=== PATIENT | female | born 1955 | race Caucasian/White ===

== ENCOUNTER 2017-09-06 09:41 | Emergency (ER) | payer MEDICAID, OTHER ==
[~2017-09-06] VITALS: Ht 165.1 cm; Wt 59.0 kg
[~2017-09-06 09:41] MED LIST: FAM20T PO; MET25T PO; PAR20T PO
[2017-09-06] MEDS ORDERED: SODIUM CHLORIDE 0.9% 1,000 ML IV ONE ×2 (10:11)
[2017-09-06] MEDS ORDERED: LORazepam 2MG/ML-1ML VIAL IV ONE (10:15)
[2017-09-06 10:49] VITALS: BP 154/102
[2017-09-06 12:03] LABS: Basophils # (auto) 0 uL; Basophils % (auto) 0.2 % (0.0-2.0); Eosinophils # (auto) 0 uL; Eosinophils % (auto) 0.1 % (0.0-7.0); Hematocrit 44.7 % (36.0-46.0); Hemoglobin 15.4 g/dL (12.2-16.2); Lymphocytes # (auto) 0.8 uL; Lymphocytes % (auto) 7.6 % (10.0-50.0); Mean Corpuscular Hemoglobin 32.9 pg (28.0-32.0); Mean Corpuscular Hgb Conc. 34.4 g/dL (32.0-36.0); Mean Corpuscular Volume 95.6 fL (80.0-100.0); Monocytes # (auto) 0.5 uL; Monocytes % (auto) 4.8 % (0.0-12.0); Neutrophils # (auto) 9.2 uL; Neutrophils % (auto) 87.3 % (37.0-80.0); Platelet Count (auto) 176 10^3/uL (140-450); Red Blood Cells 4.67 10^6/uL (4.0-5.20); Red Cell Distribution Width 14.3 % (11.8-14.3); White Blood Cell 10.5 10^3/uL (4.4-10.8)
[2017-09-06 12:35] LABS: Albumin 2.8 g/dL (3.4-5.0); BUN/Creatinine Ratio 3.4; Bilirubin, Total 0.5 mg/dL (0.2-1.0); Calcium 7.4 mg/dL (8.5-10.1); Potassium 3.6 mmol/L (3.5-5.1)
== END 2017-09-06 14:45 | disposition home or self-care (01) ==
LOC: ER 09:41 → EDBD 09:41 → ER 14:45
DX: F41.9 Anxiety disorder, unspecified (principal); J44.9 Chronic obstructive pulmonary disease, unspecified; F32.9 Major depressive disorder, single episode, unspecified; G89.4 Chronic pain syndrome; F17.210 Nicotine dependence, cigarettes, uncomplicated
CPT/HCPCS: 36415; 71046; 80053; 83735; 84484; 85025; 96361; 96374; 99285; J2060; J7030; 93005

== ENCOUNTER 2017-09-12 23:21 | Emergency (ER) | payer MEDICAID, OTHER ==
[~2017-09-12] VITALS: Ht 167.6 cm; Wt 81.6 kg
[2017-09-12 23:50] VITALS: BP 148/98
[2017-09-13 00:03] LABS: Urine Bacteria None Seen /hpf (None Seen); Urine WBC None Seen /hpf (0 - 5)
[2017-09-13 00:23] LABS: Eosinophils # (auto) 0 uL; Monocytes # (auto) 0.3 uL; Neutrophils # (auto) 4.5 uL; Nucleated Red Blood Cells % 0.1 %; White Blood Cell 6.9 10^3/uL (4.4-10.8)
[2017-09-13 00:25] LABS: Basophils # (auto) 0.1 uL; Basophils % (auto) 1.4 % (0.0-2.0); Eosinophils % (auto) 0.5 % (0.0-7.0); Hematocrit 54.5 % (36.0-46.0); Hemoglobin 18.4 g/dL (12.2-16.2); Lymphocytes # (auto) 1.9 uL; Lymphocytes % (auto) 27.6 % (10.0-50.0); Mean Corpuscular Hemoglobin 32.3 pg (28.0-32.0); Mean Corpuscular Hgb Conc. 33.8 g/dL (32.0-36.0); Mean Corpuscular Volume 95.6 fL (80.0-100.0); Monocytes % (auto) 4.3 % (0.0-12.0); Neutrophils % (auto) 66.2 % (37.0-80.0); Platelet Count (auto) 247 10^3/uL (140-450); Red Cell Distribution Width 14.5 % (11.8-14.3)
[2017-09-13 00:36] LABS: Acetaminophen < 2.0 ug/mL (10-30); Salicylate 3.7 mg/dL (2.8-20.0)
[2017-09-13 00:38] LABS: Albumin 3.6 g/dL (3.4-5.0); Bilirubin, Total 0.6 mg/dL (0.2-1.0); Calcium 8.4 mg/dL (8.5-10.1); Magnesium 2.2 mg/dL (1.6-2.6); Potassium 4.3 mmol/L (3.5-5.1); Total Protein 7.6 g/dL (6.4-8.2)
[2017-09-13 00:42] LABS: Amphetamine Screen, Urine NEGATIVE (NEGATIVE); Barbiturate Scree,Urine NEGATIVE (NEGATIVE); Benzodiazephine Screen, Urine NEGATIVE (NEGATIVE); Cannabinoid Screen, Urine NEGATIVE (NEGATIVE); Cocaine Screen, Urine NEGATIVE (NEGATIVE); Opiate Scree,Urine NEGATIVE (NEGATIVE); Phencyclidine Screen, Urine NEGATIVE (NEGATIVE)
[2017-09-13 00:49] LABS: Urine Blood Normal /uL (Negative); Urine Specific Gravity 1.002 (1.001-1.035)
== END 2017-09-12 23:58 | disposition left against medical advice (07) ==
LOC: EDBD 23:21 → ER 23:33
DX: F10.120 Alcohol abuse with intoxication, uncomplicated (principal); Z53.21 Procedure and treatment not carried out due to patient leaving prior to being seen by health care provider
CPT/HCPCS: 36415; 80053; 80307; 80320; 80329; 81001; 83735; 85025; 93005

== ENCOUNTER 2017-09-15 12:39 | Emergency (ER) | payer MEDICAID, OTHER ==
[~2017-09-15] VITALS: Ht 167.6 cm; Wt 72.6 kg
[2017-09-15] MEDS ORDERED: SODIUM CHLORIDE 0.9% 1,000 ML IV ONE ×2 (12:43)
[2017-09-15] MEDS ORDERED: THIAMINE HCL 100 MG/ML 2ML VIAL IV ONE (12:45)
[2017-09-15] MEDS ORDERED: chlordiazePOXIDE HCL 25 MG CAP PO ONE (12:45)
[2017-09-15 13:23] LABS: Basophils # (auto) 0.1 uL; Eosinophils # (auto) 0 uL; Mean Corpuscular Volume 96.1 fL (80.0-100.0); Monocytes # (auto) 0.2 uL; Nucleated Red Blood Cells % 0.2 %
[2017-09-15 13:25] LABS: Basophils % (auto) 0.7 % (0.0-2.0); Hematocrit 52.3 % (36.0-46.0); Hemoglobin 17.4 g/dL (12.2-16.2); Lymphocytes % (auto) 24.5 % (10.0-50.0); Mean Corpuscular Hgb Conc. 33.3 g/dL (32.0-36.0); Monocytes % (auto) 2.9 % (0.0-12.0); Neutrophils # (auto) 5.9 uL; Neutrophils % (auto) 71.9 % (37.0-80.0); Platelet Count (auto) 259 10^3/uL (140-450); Red Blood Cells 5.44 10^6/uL (4.0-5.20); Red Cell Distribution Width 14.6 % (11.8-14.3); White Blood Cell 8.2 10^3/uL (4.4-10.8)
[2017-09-15 14:38] LABS: BUN/Creatinine Ratio 10.9; Potassium 4.5 mmol/L (3.5-5.1)
[2017-09-15 14:39] LABS: Albumin 3.5 g/dL (3.4-5.0); Bilirubin, Total 0.7 mg/dL (0.2-1.0); Calcium 7.8 mg/dL (8.5-10.1); Total Protein 6.9 g/dL (6.4-8.2)
[2017-09-15] MEDS ORDERED: LORazepam 2MG/ML-1ML VIAL ONE (14:40)
[2017-09-15] MEDS ORDERED: LORazepam 2MG/ML-1ML VIAL IV ONE ×2 (14:45→18:00)
[2017-09-15 16:24] LABS: Urine Bacteria FEW /hpf (None Seen); Urine Blood Negative /uL (Negative); Urine Budding Yeast FEW /hpf (None Seen); Urine Mucus FEW (None Seen); Urine Specific Gravity 1.006 (1.001-1.035); Urine WBC 96 /hpf (0 - 5)
[2017-09-15 19:15] VITALS: BP 137/72
== END 2017-09-15 19:59 | disposition home or self-care (01) ==
LOC: ER 12:39 → EDBD 12:39 → ER 19:59
DX: F10.129 Alcohol abuse with intoxication, unspecified (principal); F41.9 Anxiety disorder, unspecified; J44.9 Chronic obstructive pulmonary disease, unspecified; F17.210 Nicotine dependence, cigarettes, uncomplicated
CPT/HCPCS: 36415; 80053; 80320; 81001; 85025; 93005; 96361; 96374; 96375; 96376; 99285; J2060; J3411; J7030

== ENCOUNTER 2018-06-07 10:53 | Emergency (ER) | payer BC, MEDICAID ==
[~2018-06-07] VITALS: Ht 165.1 cm; Wt 67.1 kg
[2018-06-07 11:03] VITALS: BP 121/71
[2018-06-07 11:53] LABS: Basophils # (auto) 0 uL; Basophils % (auto) 0.4 % (0.0-2.0); Eosinophils # (auto) 0 uL; Eosinophils % (auto) 0.5 % (0.0-7.0); Hematocrit 49.5 % (36.0-46.0); Hemoglobin 17.1 g/dL (12.2-16.2); Lymphocytes # (auto) 3.5 uL; Lymphocytes % (auto) 38.7 % (10.0-50.0); Mean Corpuscular Hemoglobin 32.2 pg (28.0-32.0); Mean Corpuscular Hgb Conc. 34.5 g/dL (32.0-36.0); Mean Corpuscular Volume 93.4 fL (80.0-100.0); Monocytes # (auto) 0.3 uL; Monocytes % (auto) 2.8 % (0.0-12.0); Neutrophils # (auto) 5.2 uL; Neutrophils % (auto) 57.6 % (37.0-80.0); Nucleated Red Blood Cells % 0.2 %; Platelet Count (auto) 256 10^3/uL (140-450); Red Cell Distribution Width 12.1 % (11.8-14.3)
[2018-06-07 12:05] LABS: Alanine Aminotransferase 25 U/L (13-56); Albumin 3.8 g/dL (3.4-5.0); Alkaline Phosphatase 78 U/L (45-117); Anion Gap 9 (5-15); Aspartate Aminotransferase 18 U/L (15-37); BUN/Creatinine Ratio 12.5; Bilirubin, Total 0.3 mg/dL (0.2-1.0); Blood Urea Nitrogen 9 mg/dL (7-18); Calcium 8.4 mg/dL (8.5-10.1); Carbon Dioxide 26 mmol/L (21-32); Chloride 107 mmol/L (98-107); GFR African American 105 mL/min; GFR Non-African American 87 mL/min; Glucose 90 mg/dL (74-106); Potassium 4.7 mmol/L (3.5-5.1); Sodium 142 mmol/L (136-145); Total Protein 7.1 g/dL (6.4-8.2)
[2018-06-07] MEDS ORDERED: MVI in SODIUM CHLORIDE 0.9% 1,010 ML IV ONE (12:36)
[2018-06-07] MEDS ORDERED: SODIUM CHLORIDE 0.9% 1,000 ML IVB ONE (12:36)
[2018-06-07] MEDS ORDERED: LORazepam 2MG/ML-1ML VIAL IV ONE ×3 (12:45→17:15)
[2018-06-07] MEDS ORDERED: THIAMINE 100mg/ml INJ (200mg/2ml VIAL) IV ONE ×2 (12:45)
[2018-06-07] MEDS: MAGNESIUM SULFATE 1GM/100ML 100 ML IV SCH ×2 (13:24→13:45)
[2018-06-07 15:12] LABS: Acetaminophen < 2.0 ug/mL (10-30)
[2018-06-07 15:25] LABS: Urine Bacteria NONE SEEN /hpf (None Seen); Urine Blood Negative /uL (Negative); Urine Hyaline Cast FEW /lpf (0 - 2); Urine Mucus FEW (None Seen); Urine Specific Gravity 1.007 (1.001-1.035); Urine WBC 5 /hpf (0 - 5)
[2018-06-07 17:47] LABS: Amphetamine Screen, Urine NEGATIVE (NEGATIVE); Barbiturate Scree,Urine NEGATIVE (NEGATIVE); Benzodiazephine Screen, Urine POSITIVE (NEGATIVE); Cannabinoid Screen, Urine NEGATIVE (NEGATIVE); Cocaine Screen, Urine NEGATIVE (NEGATIVE); Opiate Scree,Urine NEGATIVE (NEGATIVE); Phencyclidine Screen, Urine NEGATIVE (NEGATIVE)
== END 2018-06-07 17:38 | disposition home or self-care (01) ==
LOC: ER 10:53
DX: F10.239 Alcohol dependence with withdrawal, unspecified (principal); F41.1 Generalized anxiety disorder; F17.210 Nicotine dependence, cigarettes, uncomplicated; J44.9 Chronic obstructive pulmonary disease, unspecified
CPT/HCPCS: 36415; 71046; 80053; 80307; 80320; 80329; 81001; 83735; 84484; 85025; 93005; 94761; 96365; 96375; 96376; 99285; J2060; J3411; J3475; J7030

== ENCOUNTER 2018-06-17 18:14 | Emergency (ER) | payer BC, MEDICAID ==
[~2018-06-17] VITALS: Ht 167.6 cm; Wt 72.6 kg
[2018-06-17 18:29] VITALS: BP 149/84
[2018-06-17 18:49] LABS: Urine Bacteria NONE SEEN /hpf (None Seen); Urine Blood Negative /uL (Negative); Urine WBC 4 /hpf (0 - 5)
[2018-06-17 19:00] LABS: Basophils # (auto) 0 uL; Basophils % (auto) 0.4 % (0.0-2.0); Eosinophils # (auto) 0 uL; Eosinophils % (auto) 0.5 % (0.0-7.0); Hematocrit 37.5 % (36.0-46.0); Hemoglobin 13.2 g/dL (12.2-16.2); Lymphocytes # (auto) 1.4 uL; Lymphocytes % (auto) 15.3 % (10.0-50.0); Mean Corpuscular Hemoglobin 32.6 pg (28.0-32.0); Mean Corpuscular Hgb Conc. 35.2 g/dL (32.0-36.0); Mean Corpuscular Volume 92.6 fL (80.0-100.0); Monocytes # (auto) 0.9 uL; Monocytes % (auto) 10.3 % (0.0-12.0); Neutrophils # (auto) 6.8 uL; Neutrophils % (auto) 73.5 % (37.0-80.0); Platelet Count (auto) 125 10^3/uL (140-450); Red Blood Cells 4.05 10^6/uL (4.0-5.20); Red Cell Distribution Width 12.2 % (11.8-14.3); White Blood Cell 9.2 10^3/uL (4.4-10.8)
[2018-06-17 19:09] LABS: Alcohol, Urine < 3.0 mg/dL (0-5); Amphetamine Screen, Urine NEGATIVE (NEGATIVE); Barbiturate Scree,Urine NEGATIVE (NEGATIVE); Benzodiazephine Screen, Urine POSITIVE (NEGATIVE); Cannabinoid Screen, Urine NEGATIVE (NEGATIVE); Cocaine Screen, Urine NEGATIVE (NEGATIVE); Opiate Scree,Urine NEGATIVE (NEGATIVE); Phencyclidine Screen, Urine NEGATIVE (NEGATIVE)
[2018-06-17 19:19] LABS: Albumin 3.3 g/dL (3.4-5.0); Anion Gap 7 (5-15); Blood Alcohol < 3.0 mg/dL (0-5); Blood Urea Nitrogen 11 mg/dL (7-18); Calcium 8.8 mg/dL (8.5-10.1); Carbon Dioxide 28 mmol/L (21-32); Chloride 93 mmol/L (98-107); Glucose 94 mg/dL (74-106); Magnesium 1.7 mg/dL (1.6-2.6); Potassium 3.4 mmol/L (3.5-5.1); Sodium 128 mmol/L (136-145)
[2018-06-17 19:26] LABS: Alanine Aminotransferase 25 U/L (13-56); Alkaline Phosphatase 51 U/L (45-117); Aspartate Aminotransferase 19 U/L (15-37); Bilirubin, Total 0.6 mg/dL (0.2-1.0); GFR African American 79 mL/min; GFR Non-African American 65 mL/min; Total Protein 6.5 g/dL (6.4-8.2)
== END 2018-06-17 18:57 | disposition left against medical advice (07) ==
LOC: EDUNIT# 18:14 → EDBD 18:14 → ER 18:18
DX: F41.9 Anxiety disorder, unspecified (principal); R25.1 Tremor, unspecified; Z53.21 Procedure and treatment not carried out due to patient leaving prior to being seen by health care provider
CPT/HCPCS: 36415; 80053; 80307; 80320; 81001; 83735; 84484; 85025

== ENCOUNTER 2018-06-28 14:57 | Observation (INO) | payer BC, MEDICAID ==
[~2018-06-28] VITALS: Ht 167.6 cm; Wt 65.8 kg
[~2018-06-28 14:57] MED LIST changes: +CHLO25CA2 PO; +DIAZ2TAB PO; -FAM20T PO; -MET25T PO; +PANT40T PO; -PAR20T PO
[2018-06-28 15:12] VITALS: BP 127/78
[2018-06-28 15:54] LABS: Basophils # (auto) 0 uL; Basophils % (auto) 0.2 % (0.0-2.0); Eosinophils # (auto) 0 uL; Eosinophils % (auto) 0.3 % (0.0-7.0); Hematocrit 42.6 % (36.0-46.0); Hemoglobin 14.6 g/dL (12.2-16.2); Lymphocytes # (auto) 1.1 uL; Lymphocytes % (auto) 13.6 % (10.0-50.0); Mean Corpuscular Hemoglobin 32.3 pg (28.0-32.0); Mean Corpuscular Hgb Conc. 34.4 g/dL (32.0-36.0); Mean Corpuscular Volume 94.1 fL (80.0-100.0); Monocytes # (auto) 0.5 uL; Monocytes % (auto) 5.9 % (0.0-12.0); Neutrophils # (auto) 6.4 uL; Nucleated Red Blood Cells % 0.1 %; Platelet Count (auto) 251 10^3/uL (140-450); Red Blood Cells 4.53 10^6/uL (4.0-5.20); Red Cell Distribution Width 12.7 % (11.8-14.3)
[2018-06-28 16:21] LABS: Carbon Dioxide 25 mmol/L (21-32); Glucose 130 mg/dL (74-106)
[2018-06-28 16:25] LABS: Albumin 3.5 g/dL (3.4-5.0); Anion Gap 10 (5-15); Aspartate Aminotransferase 18 U/L (15-37); Bilirubin, Total 0.5 mg/dL (0.2-1.0); Blood Alcohol < 3.0 mg/dL (0-5); Blood Urea Nitrogen 5 mg/dL (7-18); Calcium 9.2 mg/dL (8.5-10.1); Chloride 102 mmol/L (98-107); GFR African American 89 mL/min; GFR Non-African American 74 mL/min; Potassium 3.2 mmol/L (3.5-5.1); Sodium 137 mmol/L (136-145); Total Protein 6.9 g/dL (6.4-8.2)
[2018-06-28] MEDS ORDERED: SODIUM CHLORIDE 0.9% 1,000 ML IVB ONE (16:27)
[2018-06-28 16:37] LABS: Alanine Aminotransferase 20 U/L (13-56); Alkaline Phosphatase 78 U/L (45-117)
[2018-06-28 16:52] LABS: Magnesium 1.5 mg/dL (1.6-2.6)
[2018-06-28 18:09] LABS: INR 0.98 (0.9-1.15); Partial Thromboplastin Time 28.3 sec (23.78-33.04); Prothrombin Time 10.5 sec (9.27-12.13)
== END 2018-06-28 20:51 | disposition home or self-care (01) | DRG 392 ==
LOC: EDBD 14:57 → ER 14:57 → OVERFLOW 14:58 → ER 20:48
PROVIDERS: ADMIT Family Medicine; ATTEND Family Medicine
DX: R10.84 Generalized abdominal pain (principal); I10 Essential (primary) hypertension; F17.210 Nicotine dependence, cigarettes, uncomplicated; F10.20 Alcohol dependence, uncomplicated; E87.6 Hypokalemia; E83.42 Hypomagnesemia; F41.9 Anxiety disorder, unspecified; F32.9 Major depressive disorder, single episode, unspecified; Z88.8 Allergy status to other drugs, medicaments and biological substances
CPT/HCPCS: 36415; 71045; 80053; 80320; 82150; 83690; 83735; 85025; 85610; 85730; 93005; 99285; G0378

== ENCOUNTER 2018-07-10 18:37 | Emergency (ER) | payer BC, OTHER ==
[~2018-07-10] VITALS: Ht 170.2 cm; Wt 59.0 kg
[2018-07-10] MEDS ORDERED: SODIUM CHLORIDE 0.9% 3,000 ML IV ONE (19:45)
[2018-07-10 20:13] LABS: Basophils # (auto) 0 uL; Basophils % (auto) 0.6 % (0.0-2.0); Eosinophils # (auto) 0.1 uL; Eosinophils % (auto) 0.8 % (0.0-7.0); Hematocrit 40.4 % (36.0-46.0); Hemoglobin 13.8 g/dL (12.2-16.2); Lymphocytes # (auto) 1.7 uL; Lymphocytes % (auto) 25.2 % (10.0-50.0); Mean Corpuscular Hemoglobin 32.1 pg (28.0-32.0); Mean Corpuscular Volume 94.4 fL (80.0-100.0); Monocytes # (auto) 0.4 uL; Monocytes % (auto) 6.1 % (0.0-12.0); Neutrophils # (auto) 4.6 uL; Neutrophils % (auto) 67.3 % (37.0-80.0); Nucleated Red Blood Cells % 0.1 %; Platelet Count (auto) 207 10^3/uL (140-450); Red Blood Cells 4.28 10^6/uL (4.0-5.20); Red Cell Distribution Width 13.2 % (11.8-14.3); White Blood Cell 6.9 10^3/uL (4.4-10.8)
[2018-07-10] MEDS ORDERED: chlordiazePOXIDE HCL 25 MG CAP PO ONE (20:15)
[2018-07-10 20:29] LABS: Albumin 3.4 g/dL (3.4-5.0); Anion Gap 9 (5-15); Blood Alcohol < 3.0 mg/dL (0-5); Blood Urea Nitrogen 4 mg/dL (7-18); Calcium 8.9 mg/dL (8.5-10.1); Carbon Dioxide 27 mmol/L (21-32); Chloride 106 mmol/L (98-107); Glucose 115 mg/dL (74-106); Potassium 3.9 mmol/L (3.5-5.1); Sodium 142 mmol/L (136-145)
[2018-07-10 20:31] LABS: BUN/Creatinine Ratio 4.7; GFR African American 87 mL/min; GFR Non-African American 72 mL/min
[2018-07-10 20:44] LABS: Alanine Aminotransferase 66 U/L (13-56); Alkaline Phosphatase 65 U/L (45-117); Aspartate Aminotransferase 36 U/L (15-37); Bilirubin, Total 0.3 mg/dL (0.2-1.0); Total Protein 6.5 g/dL (6.4-8.2)
[2018-07-10 21:19] VITALS: BP 137/78
[2018-07-10 21:46] LABS: Alcohol, Urine < 3.0 mg/dL (0-5); Amphetamine Screen, Urine NEGATIVE (NEGATIVE); Barbiturate Scree,Urine NEGATIVE (NEGATIVE); Benzodiazephine Screen, Urine POSITIVE (NEGATIVE); Cannabinoid Screen, Urine NEGATIVE (NEGATIVE); Cocaine Screen, Urine NEGATIVE (NEGATIVE); Opiate Scree,Urine NEGATIVE (NEGATIVE); Phencyclidine Screen, Urine NEGATIVE (NEGATIVE)
== END 2018-07-10 22:03 | disposition home or self-care (01) ==
LOC: ER 18:37
DX: F10.239 Alcohol dependence with withdrawal, unspecified (principal); F41.9 Anxiety disorder, unspecified; I10 Essential (primary) hypertension; F17.210 Nicotine dependence, cigarettes, uncomplicated
CPT/HCPCS: 36415; 80053; 80307; 80320; 85025; 93005; 99285; J7030

== ENCOUNTER 2019-05-10 18:40 | Emergency (ER) | payer BC, OTHER ==
[~2019-05-10] VITALS: Ht 162.6 cm; Wt 72.6 kg
[~2019-05-10 18:40] MED LIST changes: -CHLO25CA2 PO; -DIAZ2TAB PO
[2019-05-10 18:56] VITALS: BP 131/82
[2019-05-10] MEDS ORDERED: SODIUM CHLORIDE 0.9% 1,000 ML IV ONE (22:30)
[2019-05-10] MEDS ORDERED: LORazepam 2MG/ML-1ML VIAL IV ONE (22:30)
[2019-05-10 23:23] LABS: Basophils # (auto) 0 uL; Basophils % (auto) 0.4 % (0.0-2.0); Eosinophils # (auto) 0 uL; Hematocrit 45.1 % (36.0-46.0); Hemoglobin 15.4 g/dL (12.2-16.2); Lymphocytes # (auto) 2.7 uL; Lymphocytes % (auto) 27.8 % (10.0-50.0); Mean Corpuscular Hemoglobin 31.5 pg (28.0-32.0); Mean Corpuscular Hgb Conc. 34.1 g/dL (32.0-36.0); Mean Corpuscular Volume 92.2 fL (80.0-100.0); Monocytes # (auto) 0.5 uL; Monocytes % (auto) 5.3 % (0.0-12.0); Neutrophils # (auto) 6.4 uL; Neutrophils % (auto) 66.5 % (37.0-80.0); Nucleated Red Blood Cells % 0.1 %; Platelet Count (auto) 249 10^3/uL (140-450); Red Cell Distribution Width 13.4 % (11.8-14.3); White Blood Cell 9.6 10^3/uL (4.4-10.8)
[2019-05-10 23:38] LABS: INR 1.01 (0.9-1.15); Partial Thromboplastin Time 25.9 sec (23.64-32.05)
[2019-05-10 23:44] LABS: Calcium 8.7 mg/dL (8.5-10.1)
[2019-05-10 23:47] LABS: Albumin 4.1 g/dL (3.4-5.0)
[2019-05-11 00:04] LABS: Bilirubin, Total 0.5 mg/dL (0.2-1.0); Total Protein 7.3 g/dL (6.4-8.2)
== END 2019-05-11 00:55 | disposition home or self-care (01) ==
LOC: EDBD 18:40 → ER 18:40 → EDSEX 18:40 → ER 05-11 00:55
DX: F10.229 Alcohol dependence with intoxication, unspecified (principal); F17.210 Nicotine dependence, cigarettes, uncomplicated; J44.9 Chronic obstructive pulmonary disease, unspecified; I10 Essential (primary) hypertension; Z88.8 Allergy status to other drugs, medicaments and biological substances; Z79.899 Other long term (current) drug therapy
CPT/HCPCS: 36415; 71045; 80053; 80320; 85025; 85610; 85730; 93005; 96374; 99284; J2060; J7030

== ENCOUNTER 2019-05-11 09:16 | Emergency (ER) | payer OTHER ==
[~2019-05-11] VITALS: Ht 167.6 cm; Wt 72.6 kg
[2019-05-11] MEDS ORDERED: SODIUM CHLORIDE 0.9% 1,000 ML IV ONE (09:28)
[2019-05-11] MEDS ORDERED: LORazepam 2MG/ML-1ML VIAL IV ONE (09:30)
[2019-05-11 13:01] VITALS: BP 151/67
== END 2019-05-11 13:42 | disposition home or self-care (01) ==
LOC: EDBD 09:16 → ER 09:16
DX: F10.239 Alcohol dependence with withdrawal, unspecified (principal); F41.9 Anxiety disorder, unspecified; F32.9 Major depressive disorder, single episode, unspecified; I10 Essential (primary) hypertension; F17.210 Nicotine dependence, cigarettes, uncomplicated; Y90.9 Presence of alcohol in blood, level not specified
CPT/HCPCS: 93005; 94761; 96374; 99284; J2060; J7030

== ENCOUNTER 2019-06-06 12:15 | Emergency (ER) | payer OTHER ==
[~2019-06-06] VITALS: Ht 170.2 cm; Wt 72.6 kg
[2019-06-06 12:41] VITALS: BP 94/61
[2019-06-06] MEDS ORDERED: SODIUM CHLORIDE 0.9% 1,000 ML IV ONE (13:30)
[2019-06-06 14:12] LABS: Basophils # (auto) 0.1 uL; Basophils % (auto) 0.8 % (0.0-2.0); Eosinophils # (auto) 0.1 uL; Eosinophils % (auto) 0.8 % (0.0-7.0); Hematocrit 42.2 % (36.0-46.0); Hemoglobin 14.2 g/dL (12.2-16.2); Lymphocytes # (auto) 2.8 uL; Lymphocytes % (auto) 36.1 % (10.0-50.0); Mean Corpuscular Hemoglobin 31.1 pg (28.0-32.0); Mean Corpuscular Hgb Conc. 33.6 g/dL (32.0-36.0); Mean Corpuscular Volume 92.3 fL (80.0-100.0); Monocytes # (auto) 0.3 uL; Monocytes % (auto) 4.1 % (0.0-12.0); Neutrophils # (auto) 4.5 uL; Neutrophils % (auto) 58.2 % (37.0-80.0); Platelet Count (auto) 226 10^3/uL (140-450); Red Blood Cells 4.57 10^6/uL (4.0-5.20); Red Cell Distribution Width 13.1 % (11.8-14.3); White Blood Cell 7.8 10^3/uL (4.4-10.8)
[2019-06-06 14:28] LABS: Acetaminophen < 2.0 ug/mL (10-30); Albumin 3.3 g/dL (3.4-5.0); BUN/Creatinine Ratio 11.8; Calcium 8.3 mg/dL (8.5-10.1); Potassium 4.1 mmol/L (3.5-5.1); Salicylate 4.2 mg/dL (2.8-20.0)
[2019-06-06 14:31] LABS: Bilirubin, Total 0.2 mg/dL (0.2-1.0); Total Protein 6.4 g/dL (6.4-8.2)
[2019-06-06] MEDS ORDERED: GABAPENTIN 300 MG CAP PO ONE (15:00)
[2019-06-06] MEDS ORDERED: LORazepam 0.5 MG TAB PO ONE (15:00)
[2019-06-06] MEDS ORDERED: LIDOCAINE 1% HCL (LOCAL ANESTH.) INJ 20ML MDV IJ ONE (15:00)
[2019-06-06] MEDS ORDERED: cefTRIAXone SOD 1,000 MG VL IM ONE (15:00)
[2019-06-06] MEDS ORDERED: TETANUS-DIPTH-ACEL PERTUSSIS 0.5ML SYRG IM ONE (15:15)
[2019-06-06] MEDS ORDERED: cefTRIAXone 1GM/50ML D5W 50 ML IV ONE (15:30)
[2019-06-06] MEDS ORDERED: NEOMYCIN-BACITRACIN-POLYM UNITDOSE PKG TOP OINT TOP ONE (17:01)
== END 2019-06-06 17:19 | disposition home or self-care (01) ==
LOC: EDBD 12:15 → ER 12:19
DX: S61.512A Laceration without foreign body of left wrist, initial encounter (principal); S61.511A Laceration without foreign body of right wrist, initial encounter; F32.9 Major depressive disorder, single episode, unspecified; R45.851 Suicidal ideations; J44.9 Chronic obstructive pulmonary disease, unspecified; I10 Essential (primary) hypertension; F17.210 Nicotine dependence, cigarettes, uncomplicated; Z79.899 Other long term (current) drug therapy; Z88.8 Allergy status to other drugs, medicaments and biological substances; X78.8XXA Intentional self-harm by other sharp object, initial encounter; Y93.89 Activity, other specified; Y99.8 Other external cause status; Y92.89 Other specified places as the place of occurrence of the external cause
CPT/HCPCS: 12002; 36415; 80053; 80320; 80329; 85025; 96365; 99283; J0696; J2001; 90715

== ENCOUNTER 2019-06-07 06:30 | Emergency (ER) | payer OTHER ==
[~2019-06-07] VITALS: Ht 167.6 cm; Wt 70.3 kg
[2019-06-07 06:38] VITALS: BP 125/93
[2019-06-07] MEDS ORDERED: TETANUS-DIPTH-ACEL PERTUSSIS 0.5ML SYRG IM ONE (07:30)
[2019-06-20] MEDS ORDERED: THIA50CA PO (15:24)
[2019-06-20] MEDS ORDERED: FOLI1TAB6 PO (15:24)
== END 2019-06-07 07:31 | disposition home or self-care (01) ==
LOC: ER 06:30
DX: S61.512D Laceration without foreign body of left wrist, subsequent encounter (principal); S61.511D Laceration without foreign body of right wrist, subsequent encounter; J44.9 Chronic obstructive pulmonary disease, unspecified; I10 Essential (primary) hypertension; F17.210 Nicotine dependence, cigarettes, uncomplicated; Z88.8 Allergy status to other drugs, medicaments and biological substances; Z23 Encounter for immunization; X58.XXXD Exposure to other specified factors, subsequent encounter
CPT/HCPCS: 90471; 90715

== ENCOUNTER 2019-06-09 09:16 | Emergency (ER) | payer OTHER ==
[~2019-06-09] VITALS: Ht 172.7 cm; Wt 77.1 kg
[2019-06-09 10:27] LABS: Basophils # (auto) 0.1 uL; Basophils % (auto) 0.6 % (0.0-2.0); Eosinophils # (auto) 0 uL; Eosinophils % (auto) 0.3 % (0.0-7.0); Hematocrit 42.9 % (36.0-46.0); Hemoglobin 14.8 g/dL (12.2-16.2); Lymphocytes # (auto) 2.5 uL; Lymphocytes % (auto) 24.5 % (10.0-50.0); Mean Corpuscular Hemoglobin 31.6 pg (28.0-32.0); Mean Corpuscular Hgb Conc. 34.5 g/dL (32.0-36.0); Mean Corpuscular Volume 91.7 fL (80.0-100.0); Monocytes # (auto) 0.6 uL; Monocytes % (auto) 5.7 % (0.0-12.0); Neutrophils # (auto) 7.1 uL; Neutrophils % (auto) 68.9 % (37.0-80.0); Platelet Count (auto) 229 10^3/uL (140-450); Red Blood Cells 4.68 10^6/uL (4.0-5.20); Red Cell Distribution Width 12.8 % (11.8-14.3); White Blood Cell 10.3 10^3/uL (4.4-10.8)
[2019-06-09 10:43] LABS: Albumin 3.5 g/dL (3.4-5.0); Calcium 8.1 mg/dL (8.5-10.1)
[2019-06-09] MEDS ORDERED: PROMETHAZINE HCL 25 MG/ML 1ML IV ONE (10:45)
[2019-06-09] MEDS ORDERED: HYDROmorphone HCL 2 MG/ML VL IV ONE (10:45)
[2019-06-09 10:46] LABS: BUN/Creatinine Ratio 20.5; Bilirubin, Total 0.2 mg/dL (0.2-1.0); Total Protein 6.9 g/dL (6.4-8.2)
[2019-06-09 15:54] LABS: Urine Bacteria NONE SEEN /hpf (None Seen); Urine Blood Negative /uL (Negative); Urine Mucus FEW (None Seen); Urine Specific Gravity 1.018 (1.001-1.035); Urine WBC 1 /hpf (0 - 5)
[2019-06-09 16:07] LABS: Amphetamine Screen, Urine NEGATIVE (NEGATIVE); Barbiturate Scree,Urine NEGATIVE (NEGATIVE); Benzodiazephine Screen, Urine POSITIVE (NEGATIVE); Cannabinoid Screen, Urine NEGATIVE (NEGATIVE); Cocaine Screen, Urine NEGATIVE (NEGATIVE); Opiate Scree,Urine NEGATIVE (NEGATIVE); Phencyclidine Screen, Urine NEGATIVE (NEGATIVE)
[2019-06-09] MEDS ORDERED: LORazepam 0.5 MG TAB ONE (17:04)
[2019-06-09] MEDS ORDERED: LORazepam 0.5 MG TAB PO ONE (17:15)
[2019-06-09 20:00] VITALS: BP 143/91
[2019-06-20] MEDS ORDERED: THIA50CA PO (15:24)
[2019-06-20] MEDS ORDERED: FOLI1TAB6 PO (15:24)
== END 2019-06-09 21:06 | disposition home or self-care (01) ==
LOC: ER 09:16 → EDBD 09:16 → ER 14:32
DX: F32.9 Major depressive disorder, single episode, unspecified (principal); F10.10 Alcohol abuse, uncomplicated; F13.10 Sedative, hypnotic or anxiolytic abuse, uncomplicated; R45.851 Suicidal ideations; F41.9 Anxiety disorder, unspecified; J44.9 Chronic obstructive pulmonary disease, unspecified; I10 Essential (primary) hypertension
CPT/HCPCS: 36415; 70450; 71046; 73130; 80053; 80307; 81001; 85025; 93005; 96374; 96375; 99284; J1170; J2550

== ENCOUNTER 2019-06-15 06:01 | Emergency (ER) | payer OTHER ==
[~2019-06-15] VITALS: Ht 162.6 cm; Wt 68.0 kg
[2019-06-15 08:23] LABS: Basophils # (auto) 0.1 uL; Basophils % (auto) 0.6 % (0.0-2.0); Eosinophils # (auto) 0 uL; Eosinophils % (auto) 0.1 % (0.0-7.0); Hematocrit 43.2 % (36.0-46.0); Hemoglobin 14.8 g/dL (12.2-16.2); Lymphocytes # (auto) 2.1 uL; Lymphocytes % (auto) 22.8 % (10.0-50.0); Mean Corpuscular Hgb Conc. 34.3 g/dL (32.0-36.0); Mean Corpuscular Volume 93.2 fL (80.0-100.0); Monocytes # (auto) 0.3 uL; Monocytes % (auto) 3.3 % (0.0-12.0); Neutrophils # (auto) 6.7 uL; Neutrophils % (auto) 73.2 % (37.0-80.0); Platelet Count (auto) 212 10^3/uL (140-450); Red Blood Cells 4.63 10^6/uL (4.0-5.20); Red Cell Distribution Width 13.6 % (11.8-14.3); White Blood Cell 9.1 10^3/uL (4.4-10.8)
[2019-06-15 08:36] LABS: Acetaminophen < 2.0 ug/mL (10-30); Albumin 3.7 g/dL (3.4-5.0); Calcium 8.1 mg/dL (8.5-10.1); Salicylate 3.7 mg/dL (2.8-20.0)
[2019-06-15 08:45] LABS: Bilirubin, Total 0.7 mg/dL (0.2-1.0)
[2019-06-15] MEDS ORDERED: cefTRIAXone W LIDOCAINE 1 GM IM IM ONE (08:45)
[2019-06-15] MEDS ORDERED: HYDROcodone-ACET 5/325MG TAB PO ONE (08:45)
[2019-06-15] MEDS ORDERED: LORazepam 0.5 MG TAB PO ONE ×3 (11:15→17:45)
[2019-06-15 11:22] VITALS: BP 154/84
[2019-06-15] MEDS ORDERED: GABAPENTIN 100 MG CAP PO ONE (12:45)
[2019-06-20] MEDS ORDERED: FOLI1TAB6 PO (15:24)
[2019-06-20] MEDS ORDERED: THIA50CA PO (15:24)
== END 2019-06-15 22:20 | disposition left against medical advice (07) ==
LOC: EDBD 06:01 → ER 06:01
DX: S51.812D Laceration without foreign body of left forearm, subsequent encounter (principal); S61.412D Laceration without foreign body of left hand, subsequent encounter; S61.511D Laceration without foreign body of right wrist, subsequent encounter; R45.851 Suicidal ideations; J44.9 Chronic obstructive pulmonary disease, unspecified; F41.9 Anxiety disorder, unspecified; F32.9 Major depressive disorder, single episode, unspecified; I10 Essential (primary) hypertension; F17.210 Nicotine dependence, cigarettes, uncomplicated; F10.20 Alcohol dependence, uncomplicated; Z79.899 Other long term (current) drug therapy; Z88.8 Allergy status to other drugs, medicaments and biological substances; Y90.6 Blood alcohol level of 120-199 mg/100 ml; X78.8XXD Intentional self-harm by other sharp object, subsequent encounter
CPT/HCPCS: 36415; 80053; 80320; 80329; 85025; 96372; 99284; J0696

== ENCOUNTER 2019-06-19 07:48 | Inpatient (IN) | payer OTHER ==
[~2019-06-19] VITALS: Ht 175.3 cm; Wt 70.6 kg
[2019-06-19] MEDS ORDERED: SODIUM CHLORIDE 0.9% 1,000 ML IV ONE (08:15)
[2019-06-19 10:16] LABS: Amphetamine Screen, Urine NEGATIVE (NEGATIVE); Barbiturate Scree,Urine NEGATIVE (NEGATIVE); Benzodiazephine Screen, Urine NEGATIVE (NEGATIVE); Cannabinoid Screen, Urine NEGATIVE (NEGATIVE); Cocaine Screen, Urine NEGATIVE (NEGATIVE); Opiate Scree,Urine NEGATIVE (NEGATIVE); Phencyclidine Screen, Urine NEGATIVE (NEGATIVE)
[2019-06-19] MEDS ORDERED: LORazepam 2MG/ML-1ML VIAL IV ONE ×2 (14:00→15:45)
[2019-06-19] MEDS ORDERED: diphenhdrAMINE HCL 50 MG/1 ML VL IV ONE (15:45)
[2019-06-19 16:48] LABS: Basophils # (auto) 0 uL; Basophils % (auto) 0.3 % (0.0-2.0); Eosinophils # (auto) 0 uL; Eosinophils % (auto) 0.2 % (0.0-7.0); Hematocrit 41.1 % (36.0-46.0); Hemoglobin 13.6 g/dL (12.2-16.2); Lymphocytes # (auto) 1.2 uL; Lymphocytes % (auto) 22.7 % (10.0-50.0); Mean Corpuscular Hemoglobin 31.5 pg (28.0-32.0); Mean Corpuscular Hgb Conc. 33.2 g/dL (32.0-36.0); Mean Corpuscular Volume 94.9 fL (80.0-100.0); Monocytes # (auto) 0.3 uL; Monocytes % (auto) 5.8 % (0.0-12.0); Neutrophils # (auto) 3.8 uL; Platelet Count (auto) 137 10^3/uL (140-450); Red Blood Cells 4.33 10^6/uL (4.0-5.20); Red Cell Distribution Width 14.5 % (11.8-14.3); White Blood Cell 5.3 10^3/uL (4.4-10.8)
[2019-06-19 17:01] LABS: Albumin 2.9 g/dL (3.4-5.0); BUN/Creatinine Ratio 18.5; Calcium 7.4 mg/dL (8.5-10.1)
[2019-06-19 17:03] LABS: Bilirubin, Total 0.2 mg/dL (0.2-1.0); Potassium 3.7 mmol/L (3.5-5.1); Total Protein 6.1 g/dL (6.4-8.2)
[2019-06-19] MEDS ORDERED: NITROGLYCERIN 0.4 MG SL TAB SL PRN (18:30)
[2019-06-19] MEDS ORDERED: MULTIPLE VITAMIN TAB PO ONE (18:30)
[2019-06-19] MEDS ORDERED: ACETAMINOPHEN 500 MG TAB PO PRN (18:30)
[2019-06-19] MEDS ORDERED: MORPHINE SULF INJ 2 MG/ML SYRINGE 1ML IV PRN (18:30)
[2019-06-19] MEDS: LORazepam 2MG/ML-1ML VIAL IV PRN (19:50)
--- NOTE | 2019-06-19 21:51 | NUR ---
MS admit from ER ZACHERY PRUITTMARKEL admitted to tele/MS after NO SBAR was received. Patient oriented to LOVE CALLAHAN, RN primary RN, unit, room, bed, and unit policies regarding patient care and visiting hours. Patient weighed by bedscale and encouraged to call if they need something. All questions and concerns addressed, patient verbalized understanding. Patient is A/O x4, on 2L/min oxygen via nasal cannula. Sitter is at bedside for safety. BP is 169/100 will page hospitalist, no BP medications are available.
[2019-06-19] MEDS: QUEtiapine FUMARATE 25 MG TAB PO SCH (22:00)
[2019-06-19 22:22] VITALS: BP 169/100
--- NOTE | 2019-06-19 22:40 | NUR ---
Hospitalist tatianna Patient is a recent admit from ER, here for toxic encephalopathy, she is complaining of a headache 10/0-10 on the pain level scale, her BP is currently 169/100, the first BP reading was 172/100. No BP medications available. She took Tylenol in the ER at 19:47 and stated she had no relief, no other pain medications available.
[2019-06-19] MEDS ORDERED: HYDROcodone-ACET 5/325MG TAB PO ONE (22:45)
--- NOTE | 2019-06-19 22:48 | NUR ---
Hospitalist called back, one time order for maritza. Will carry out and continue to monitor the patient.
--- NOTE | 2019-06-20 00:35 | NUR ---
MRSA nares sent to lab via bullet system.
[2019-06-20] MEDS: LORazepam 2MG/ML-1ML VIAL IV PRN ×4 (01:19→14:00)
--- NOTE | 2019-06-20 01:20 | NUR ---
Patient is requesting Berman catheter to be removed. She is able to ambulate with no assistance. She is A/O x4, will page hospitalist.
--- NOTE | 2019-06-20 02:45 | NUR ---
Hospitalist called back, order received to remove daniel. Will carry out.
--- NOTE | 2019-06-20 02:59 | NUR ---
Daniel catheter removed, 500 mL of clear yellow urine was emptied from the daniel bag. Patient instructed on the need to void after having the daniel removed, patient verbalized understanding. Pericare completed. Will continue to monitor.
--- NOTE | 2019-06-20 04:08 | NUR ---
Patient voided with no complaints of dysuria, minimal complaint of burning on urination. Will continue to monitor.
[2019-06-20 06:04] VITALS: BP 159/94
--- NOTE | 2019-06-20 07:40 | NUR ---
RECEIVED REPORT AND ASSUME CARE OF PT. PT A/OX4. DENIED S/S ACUTE DISTRESS . DENIED SUICIDAL IDEATION. UPDATE PT WITH POC. SAFETY ATTENDANCE AT BEDSIDE.BED AT LOWEST POSITION. CALL LIGHT AND BELONGINGS WITHIN REACH. WILL CONT TO MONITOR.
[2019-06-20] MEDS: QUEtiapine FUMARATE 25 MG TAB PO SCH (10:00)
[2019-06-20] MEDS ORDERED: FOLIC ACID 1 MG TAB PO SCH (10:00)
[2019-06-20] MEDS ORDERED: THIAMINE HCL 100 MG TAB PO SCH (10:00)
[2019-06-20 10:53] VITALS: BP 156/98
[2019-06-20] MEDS ORDERED: FOLIC ACID 1 MG, MULTIPLE VITAMIN 10 ML, MAGNESIUM SULF SDV 50% 8 MEQ, THIAMINE INJ 100... INJ SCH ×5 (12:00)
--- NOTE | 2019-06-20 14:26 | NUR ---
CALLED TELE PSYCH AND SPOKE WITH BASSEM. WAITING A CALL BACK.
[2019-06-20] MEDS ORDERED: THIA50CA PO ×2 (15:24)
[2019-06-20] MEDS ORDERED: FOLI1TAB6 PO ×2 (15:24)
--- NOTE | 2019-06-20 15:36 | NUR ---
A/OX4. DENIED S/S ACUTE DISTRESS. PT EXPRESSED THE WISH TO LEAVE AMA. EDUCATE PT OF RISK OF LEAVING AMA INCLUDING SUDDEN DEARTH AND PT VERBALIZED UNDERSTANDING. SPOKE WITH DR VILLATORO AT THE NURSING STATION WITH REGARDS TO THE FACT THAT PT IS LEAVING AMA AND HE SAID IT'S OKAY. AMA FORM SIGNED BY PT AND DR WILKES. IV DC'D.PT STILL ROOM WAITING FOR HER RIDE HOME.
--- NOTE | 2019-06-20 16:01 | NUR ---
PT LEFT UNIT ACCOMPANIED BY IN STABLE CONDITION.
--- NOTE | 2019-06-20 16:29 | NUR ---
D/C Planning Per consult for home health safety evaluation. Contacted [place] [facility]:) Fax:) faxed medical records. Per Darlyn from [facility] Pt has been accepted and service to start within 48 hrs upon d/c day. Contacted [facility]:) Fax:) faxed medical records requesting authorization. Addendum: 06/20/19 at 1632 by YO GENTILE Amended: Links added.
== END 2019-06-20 16:05 | disposition left against medical advice (07) | DRG 894 ==
LOC: EDUNIT# 07:48 → ER 07:48 → EDBD 07:48 → OVERFLOW 07:49 → CENTRAL 21:51
PROVIDERS: ADMIT Nurse Practitioner Acute Care; ATTEND Internal Medicine
DX: F10.229 Alcohol dependence with intoxication, unspecified (principal); G92 Toxic encephalopathy; I10 Essential (primary) hypertension; E86.0 Dehydration; F32.9 Major depressive disorder, single episode, unspecified; Z53.29 Procedure and treatment not carried out because of patient's decision for other reasons; Y90.9 Presence of alcohol in blood, level not specified; J44.9 Chronic obstructive pulmonary disease, unspecified; K21.9 Gastro-esophageal reflux disease without esophagitis; Z91.5 Personal history of self-harm; Z88.8 Allergy status to other drugs, medicaments and biological substances
CPT/HCPCS: 36415; 80053; 80307; 80320; 85025; 87081; 93005; G0378

== ENCOUNTER 2019-06-24 14:02 | Emergency (ER) | payer OTHER ==
[~2019-06-24] VITALS: Ht 167.6 cm; Wt 70.3 kg
[~2019-06-24 14:02] MED LIST changes: +FOLI1TAB6 PO; +THIA50CA PO
[2019-06-24 16:01] VITALS: BP 138/95
== END 2019-06-24 16:03 | disposition home or self-care (01) ==
LOC: ER 14:02
DX: S51.812D Laceration without foreign body of left forearm, subsequent encounter (principal); S51.811D Laceration without foreign body of right forearm, subsequent encounter; J44.9 Chronic obstructive pulmonary disease, unspecified; I10 Essential (primary) hypertension; F17.210 Nicotine dependence, cigarettes, uncomplicated; Z88.8 Allergy status to other drugs, medicaments and biological substances; Z79.899 Other long term (current) drug therapy; X58.XXXD Exposure to other specified factors, subsequent encounter

== ENCOUNTER 2019-07-10 09:15 | Emergency (ER) | payer OTHER ==
[~2019-07-10] VITALS: Ht 165.1 cm; Wt 64.4 kg
[2019-07-10] MEDS ORDERED: SODIUM CHLORIDE 0.9% 1,000 ML IVB ONE (09:38)
[2019-07-10] MEDS ORDERED: THIAMINE 100mg/ml INJ (200mg/2ml VIAL) IV ONE (09:45)
[2019-07-10 10:04] LABS: Basophils # (auto) 0.1 uL; Basophils % (auto) 1.2 % (0.0-2.0); Eosinophils # (auto) 0 uL; Eosinophils % (auto) 0.6 % (0.0-7.0); Hematocrit 41.5 % (36.0-46.0); Hemoglobin 14.2 g/dL (12.2-16.2); Lymphocytes # (auto) 1.4 uL; Lymphocytes % (auto) 23.8 % (10.0-50.0); Mean Corpuscular Hemoglobin 32.1 pg (28.0-32.0); Mean Corpuscular Hgb Conc. 34.2 g/dL (32.0-36.0); Mean Corpuscular Volume 93.9 fL (80.0-100.0); Monocytes # (auto) 0.3 uL; Neutrophils # (auto) 4.1 uL; Neutrophils % (auto) 69.4 % (37.0-80.0); Platelet Count (auto) 204 10^3/uL (140-450); Red Blood Cells 4.42 10^6/uL (4.0-5.20); Red Cell Distribution Width 13.4 % (11.8-14.3)
[2019-07-10] MEDS ORDERED: LORazepam 2MG/ML-1ML VIAL IV ONE (10:15)
[2019-07-10 10:16] LABS: Acetaminophen < 2.0 ug/mL (10-30); Salicylate 4.9 mg/dL (2.8-20.0)
[2019-07-10 10:17] LABS: Albumin 3.3 g/dL (3.4-5.0); Calcium 8.5 mg/dL (8.5-10.1); Potassium 4.2 mmol/L (3.5-5.1)
[2019-07-10 10:20] LABS: Bilirubin, Total 0.2 mg/dL (0.2-1.0); Total Protein 7.2 g/dL (6.4-8.2)
[2019-07-10 11:25] LABS: Urine Bacteria MOD /hpf (None Seen); Urine Blood Negative /uL (Negative); Urine Specific Gravity 1.005 (1.001-1.035); Urine WBC 33 /hpf (0 - 5)
[2019-07-10 11:36] LABS: Amphetamine Screen, Urine NEGATIVE (NEGATIVE); Barbiturate Scree,Urine NEGATIVE (NEGATIVE); Benzodiazephine Screen, Urine POSITIVE (NEGATIVE); Cannabinoid Screen, Urine NEGATIVE (NEGATIVE); Cocaine Screen, Urine NEGATIVE (NEGATIVE); Opiate Scree,Urine NEGATIVE (NEGATIVE); Phencyclidine Screen, Urine NEGATIVE (NEGATIVE)
[2019-07-10 13:32] VITALS: BP 121/67
[2019-07-10] MEDS ORDERED: ONDANSETRON HCL 4 MG/2 ML VIAL ONE (14:29)
[2019-07-10] MEDS ORDERED: ONDANSETRON HCL 4 MG/2 ML VIAL IV ONE (14:30)
[2019-07-10] MEDS ORDERED: ONDANSETRON ODT 4 MG TAB PO ONE (14:30)
== END 2019-07-10 14:47 | disposition home or self-care (01) ==
LOC: EDBD 09:15 → ER 09:15
DX: E86.0 Dehydration (principal); F10.120 Alcohol abuse with intoxication, uncomplicated; I10 Essential (primary) hypertension; J44.9 Chronic obstructive pulmonary disease, unspecified; Y90.0 Blood alcohol level of less than 20 mg/100 ml
CPT/HCPCS: 36415; 70450; 80053; 80307; 80320; 80329; 81001; 85025; 96361; 96374; 96375; 99284; J2060; J2405; J3411

== ENCOUNTER 2019-08-25 14:43 | Emergency (ER) | payer OTHER ==
[~2019-08-25] VITALS: Ht 157.5 cm; Wt 72.6 kg
[2019-08-25 15:30] VITALS: BP 154/84
[2019-08-25] MEDS ORDERED: LORazepam 0.5 MG TAB PO ONE (15:45)
[2019-08-25 16:02] LABS: Urine Bacteria NONE SEEN /hpf (None Seen); Urine Blood Negative /uL (Negative); Urine Hyaline Cast FEW /lpf (0 - 2); Urine Specific Gravity 1.002 (1.001-1.035); Urine WBC 1 /hpf (0 - 5)
[2019-08-25 16:12] LABS: Alcohol, Urine < 3.0 mg/dL (0-5); Amphetamine Screen, Urine NEGATIVE (NEGATIVE); Barbiturate Scree,Urine NEGATIVE (NEGATIVE); Benzodiazephine Screen, Urine POSITIVE (NEGATIVE); Cannabinoid Screen, Urine NEGATIVE (NEGATIVE); Cocaine Screen, Urine NEGATIVE (NEGATIVE); Opiate Scree,Urine NEGATIVE (NEGATIVE); Phencyclidine Screen, Urine NEGATIVE (NEGATIVE)
== END 2019-08-25 15:24 | disposition left against medical advice (07) ==
LOC: ER 14:43 → EDBD 14:43 → EDUNIT# 14:43 → ER 15:24
DX: F41.9 Anxiety disorder, unspecified (principal); Z53.21 Procedure and treatment not carried out due to patient leaving prior to being seen by health care provider
CPT/HCPCS: 80307; 81001

== ENCOUNTER 2019-09-14 09:39 | Emergency (ER) | payer OTHER ==
[~2019-09-14] VITALS: Ht 165.1 cm; Wt 70.3 kg
[2019-09-14] MEDS ORDERED: SODIUM CHLORIDE 0.9% 1,000 ML IVB ONE (10:07)
[2019-09-14] MEDS ORDERED: LORazepam 2MG/ML-1ML VIAL IV ONE (10:15)
[2019-09-14] MEDS ORDERED: THIAMINE 100mg/ml INJ (200mg/2ml VIAL) IV ONE (10:15)
[2019-09-14 10:41] LABS: Basophils # (auto) 0 uL; Basophils % (auto) 0.5 % (0.0-2.0); Eosinophils # (auto) 0 uL; Eosinophils % (auto) 0.1 % (0.0-7.0); Hematocrit 43.7 % (36.0-46.0); Lymphocytes # (auto) 1.1 uL; Mean Corpuscular Hemoglobin 31.1 pg (28.0-32.0); Mean Corpuscular Hgb Conc. 34.4 g/dL (32.0-36.0); Mean Corpuscular Volume 90.4 fL (80.0-100.0); Monocytes # (auto) 0.6 uL; Monocytes % (auto) 11.3 % (0.0-12.0); Neutrophils # (auto) 3.7 uL; Neutrophils % (auto) 68.1 % (37.0-80.0); Nucleated Red Blood Cells % 0.1 %; Platelet Count (auto) 141 10^3/uL (140-450); Red Blood Cells 4.84 10^6/uL (4.0-5.20); Red Cell Distribution Width 13.4 % (11.8-14.3); White Blood Cell 5.4 10^3/uL (4.4-10.8)
[2019-09-14 10:56] LABS: Albumin 3.3 g/dL (3.4-5.0); BUN/Creatinine Ratio 18.2; Calcium 8.1 mg/dL (8.5-10.1); Potassium 3.6 mmol/L (3.5-5.1)
[2019-09-14 10:59] LABS: Bilirubin, Total 0.3 mg/dL (0.2-1.0); Total Protein 6.7 g/dL (6.4-8.2)
[2019-09-14 11:10] LABS: Urine Bacteria NONE SEEN /hpf (None Seen); Urine Blood Negative /uL (Negative); Urine Specific Gravity 1.003 (1.001-1.035); Urine WBC <1 /hpf (0 - 5)
[2019-09-14 11:31] LABS: Amphetamine Screen, Urine NEGATIVE (NEGATIVE); Barbiturate Scree,Urine NEGATIVE (NEGATIVE); Benzodiazephine Screen, Urine NEGATIVE (NEGATIVE); Cannabinoid Screen, Urine NEGATIVE (NEGATIVE); Cocaine Screen, Urine NEGATIVE (NEGATIVE); Opiate Scree,Urine NEGATIVE (NEGATIVE); Phencyclidine Screen, Urine NEGATIVE (NEGATIVE)
[2019-09-14 13:12] VITALS: BP 146/70
[2019-09-14] MEDS ORDERED: IBUPROFEN 400 MG TAB PO ONE (13:15)
== END 2019-09-14 14:58 | disposition home or self-care (01) ==
LOC: EDBD 09:39 → ER 09:39
DX: F10.129 Alcohol abuse with intoxication, unspecified (principal); E86.0 Dehydration; J44.9 Chronic obstructive pulmonary disease, unspecified; I10 Essential (primary) hypertension; Z88.8 Allergy status to other drugs, medicaments and biological substances; Y90.8 Blood alcohol level of 240 mg/100 ml or more
CPT/HCPCS: 36415; 80053; 80307; 80320; 81001; 85025; 96374; 96375; 99283; J2060; J3411

== ENCOUNTER 2019-09-29 18:05 | Emergency (ER) | payer OTHER ==
[~2019-09-29] VITALS: Ht 167.6 cm; Wt 77.1 kg
[2019-09-29 19:09] LABS: Basophils # (auto) 0.1 uL; Basophils % (auto) 0.9 % (0.0-2.0); Eosinophils # (auto) 0.1 uL; Eosinophils % (auto) 0.9 % (0.0-7.0); Hematocrit 39.5 % (36.0-46.0); Hemoglobin 13.7 g/dL (12.2-16.2); Lymphocytes # (auto) 1.8 uL; Lymphocytes % (auto) 22.9 % (10.0-50.0); Mean Corpuscular Hemoglobin 31.2 pg (28.0-32.0); Mean Corpuscular Hgb Conc. 34.7 g/dL (32.0-36.0); Mean Corpuscular Volume 89.8 fL (80.0-100.0); Monocytes # (auto) 0.6 uL; Monocytes % (auto) 7.2 % (0.0-12.0); Neutrophils # (auto) 5.5 uL; Neutrophils % (auto) 68.1 % (37.0-80.0); Platelet Count (auto) 261 10^3/uL (140-450); Red Blood Cells 4.39 10^6/uL (4.0-5.20); Red Cell Distribution Width 13.3 % (11.8-14.3)
[2019-09-29 19:16] LABS: Albumin 3.1 g/dL (3.4-5.0); Calcium 8.2 mg/dL (8.5-10.1); Potassium 3.5 mmol/L (3.5-5.1)
[2019-09-29 19:19] LABS: Bilirubin, Total 0.3 mg/dL (0.2-1.0); Total Protein 6.5 g/dL (6.4-8.2)
[2019-09-29] MEDS ORDERED: SODIUM CHLORIDE 0.9% 1,000 ML IVB ONE (20:26)
[2019-09-29] MEDS ORDERED: THIAMINE 100mg/ml INJ (200mg/2ml VIAL) IV ONE (20:30)
[2019-09-29 20:36] LABS: Urine Bacteria FEW /hpf (None Seen); Urine Blood Negative /uL (Negative); Urine Specific Gravity 1.008 (1.001-1.035); Urine WBC 25 /hpf (0 - 5)
[2019-09-29 20:43] LABS: Amphetamine Screen, Urine NEGATIVE (NEGATIVE); Barbiturate Scree,Urine NEGATIVE (NEGATIVE); Benzodiazephine Screen, Urine POSITIVE (NEGATIVE); Cannabinoid Screen, Urine NEGATIVE (NEGATIVE); Cocaine Screen, Urine NEGATIVE (NEGATIVE); Opiate Scree,Urine NEGATIVE (NEGATIVE); Phencyclidine Screen, Urine NEGATIVE (NEGATIVE)
[2019-09-29] MEDS ORDERED: SODIUM CHLORIDE 0.9% 1,000 ML IV ONE (20:45)
[2019-09-29 21:45] LABS: Magnesium 1.7 mg/dL (1.6-2.6)
[2019-09-29] MEDS: FOLIC ACID 1 MG, MULTIPLE VITAMIN 10 ML, MAGNESIUM SULF SDV 50% 8 MEQ, THIAMINE INJ 100... INJ SCH ×5 (22:33)
[2019-09-30] MEDS: FOLIC ACID 1 MG, MULTIPLE VITAMIN 10 ML, MAGNESIUM SULF SDV 50% 8 MEQ, THIAMINE INJ 100... INJ SCH ×5 (00:30)
[2019-09-30 01:15] VITALS: BP 134/93
[2019-09-30] MEDS ORDERED: GABA100C9 PO (18:36)
[2019-09-30] MEDS ORDERED: CLON1TAB PO (18:36)
[2019-10-01] MEDS ORDERED: HAL5T PO (10:35)
[2019-10-01] MEDS ORDERED: PROP60CA34 PO (10:35)
== END 2019-09-30 02:26 | disposition home or self-care (01) ==
LOC: EDBD 18:05 → ER 18:10
DX: S16.1XXA Strain of muscle, fascia and tendon at neck level, initial encounter (principal); F10.129 Alcohol abuse with intoxication, unspecified; F41.9 Anxiety disorder, unspecified; F32.9 Major depressive disorder, single episode, unspecified; J44.9 Chronic obstructive pulmonary disease, unspecified; I10 Essential (primary) hypertension; F17.210 Nicotine dependence, cigarettes, uncomplicated; Y90.6 Blood alcohol level of 120-199 mg/100 ml; V43.52XA Car driver injured in collision with other type car in traffic accident, initial encounter; Y93.89 Activity, other specified; Y92.488 Other paved roadways as the place of occurrence of the external cause; Y99.8 Other external cause status
CPT/HCPCS: 36415; 70450; 71045; 72125; 80053; 80307; 80320; 81001; 83735; 85025; 96374; 99284; J3411

== ENCOUNTER 2019-10-20 21:31 | Emergency (ER) | payer OTHER ==
[~2019-10-20] VITALS: Ht 165.1 cm; Wt 72.6 kg
[~2019-10-20 21:31] MED LIST changes: +APIX5TAB PO; +CLON1TAB PO; +HAL5T PO; +MET25T PO
[2019-10-20 22:12] VITALS: BP 144/91
[2019-10-20 22:59] LABS: Basophils # (auto) 0.1 uL; Basophils % (auto) 0.4 % (0.0-2.0); Eosinophils # (auto) 0 uL; Eosinophils % (auto) 0.1 % (0.0-7.0); Hemoglobin 17.9 g/dL (12.2-16.2); Lymphocytes # (auto) 2.1 uL; Lymphocytes % (auto) 15.4 % (10.0-50.0); Mean Corpuscular Hemoglobin 30.4 pg (28.0-32.0); Mean Corpuscular Hgb Conc. 34.4 g/dL (32.0-36.0); Mean Corpuscular Volume 88.4 fL (80.0-100.0); Monocytes # (auto) 1.6 uL; Monocytes % (auto) 11.8 % (0.0-12.0); Neutrophils # (auto) 9.6 uL; Neutrophils % (auto) 72.3 % (37.0-80.0); Nucleated Red Blood Cells % 0.1 %; Platelet Count (auto) 231 10^3/uL (140-450); Red Blood Cells 5.89 10^6/uL (4.0-5.20); Red Cell Distribution Width 13.4 % (11.8-14.3); White Blood Cell 13.3 10^3/uL (4.4-10.8)
[2019-10-20 23:25] LABS: Albumin 3.8 g/dL (3.4-5.0); Calcium 9.7 mg/dL (8.5-10.1); Potassium 3.5 mmol/L (3.5-5.1)
[2019-10-20 23:28] LABS: BUN/Creatinine Ratio 23.1; Bilirubin, Total 0.5 mg/dL (0.2-1.0); Total Protein 8.8 g/dL (6.4-8.2)
[2019-10-21] MEDS ORDERED: clonazePAM 0.5 MG TAB PO ONE (00:45)
[2019-10-21] MEDS ORDERED: HALOPERIDOL 5 MG TAB PO ONE (00:45)
== END 2019-10-21 01:00 | disposition left against medical advice (07) ==
LOC: EDBD 21:31 → ER 21:34
DX: F41.8 Other specified anxiety disorders (principal); I10 Essential (primary) hypertension; J44.9 Chronic obstructive pulmonary disease, unspecified; F32.9 Major depressive disorder, single episode, unspecified; F17.210 Nicotine dependence, cigarettes, uncomplicated
CPT/HCPCS: 36415; 71045; 80053; 85025; 93005

== ENCOUNTER 2019-11-09 15:04 | Inpatient (IN) | payer OTHER ==
[~2019-11-09] VITALS: Ht 167.6 cm; Wt 60.2 kg
[2019-11-09] MEDS ORDERED: SODIUM CHLORIDE 0.9% 1,000 ML IVB ONE (15:17)
[2019-11-09 15:49] LABS: Basophils # (auto) 0 10 ^3/uL (0-0.2); Basophils % (auto) 0.4 % (0.0-2.0); Eosinophils # (auto) 0 10 ^3/uL (0-0.8); Eosinophils % (auto) 0.5 % (0.0-7.0); Hematocrit 40.7 % (36.0-46.0); Hemoglobin 13.9 g/dL (12.2-16.2); Lymphocytes # (auto) 1.7 10 ^3/uL (0.4-5.4); Lymphocytes % (auto) 32.2 % (10.0-50.0); Mean Corpuscular Hemoglobin 30.6 pg (28.0-32.0); Mean Corpuscular Hgb Conc. 34.3 g/dL (32.0-36.0); Mean Corpuscular Volume 89.4 fL (80.0-100.0); Monocytes # (auto) 0.4 10 ^3/uL (0-1.3); Monocytes % (auto) 6.6 % (0.0-12.0); Neutrophils # (auto) 3.2 10 ^3/uL (1.6-8.6); Neutrophils % (auto) 60.3 % (37.0-80.0); Nucleated Red Blood Cells % 0.1 %; Platelet Count (auto) 183 10^3/uL (140-450); Red Blood Cells 4.56 10^6/uL (4.0-5.20); Red Cell Distribution Width 14.1 % (11.8-14.3); White Blood Cell 5.4 10^3/uL (4.4-10.8)
[2019-11-09 16:03] LABS: Albumin 3.2 g/dL (3.4-5.0); Anion Gap 3 (5-15); Blood Alcohol < 3.0 mg/dL (0-5); Blood Urea Nitrogen 11 mg/dL (7-18); Calcium 9.4 mg/dL (8.5-10.1); Carbon Dioxide 28 mmol/L (21-32); Chloride 107 mmol/L (98-107); Glucose 104 mg/dL (74-106); Potassium 4.6 mmol/L (3.5-5.1); Sodium 138 mmol/L (136-145)
[2019-11-09 16:05] LABS: Alanine Aminotransferase 17 U/L (13-56); Aspartate Aminotransferase 11 U/L (15-37); BUN/Creatinine Ratio 13.8; GFR African American 93 mL/min; GFR Non-African American 77 mL/min
[2019-11-09 16:07] LABS: Alkaline Phosphatase 55 U/L (45-117); Bilirubin, Total 0.5 mg/dL (0.2-1.0); Salicylate 2.3 mg/dL (2.8-20.0); Total Protein 6.7 g/dL (6.4-8.2)
[2019-11-09 16:12] LABS: Acetaminophen < 2.0 ug/mL (10-30)
[2019-11-09 17:23] LABS: Alcohol, Urine < 3.0 mg/dL (0-5); Amphetamine Screen, Urine NEGATIVE (NEGATIVE); Barbiturate Scree,Urine NEGATIVE (NEGATIVE); Benzodiazephine Screen, Urine POSITIVE (NEGATIVE); Cannabinoid Screen, Urine NEGATIVE (NEGATIVE); Cocaine Screen, Urine NEGATIVE (NEGATIVE); Opiate Scree,Urine NEGATIVE (NEGATIVE); Phencyclidine Screen, Urine NEGATIVE (NEGATIVE)
[2019-11-09] MEDS ORDERED: SODIUM CHLORIDE 0.9% 1,000 ML IV SCH (20:56)
[2019-11-09] MEDS ORDERED: ALBUTEROL SULF 2.5 MG/0.5ML(0.5%) NEB SOLN NEB PRN (21:00)
[2019-11-09] MEDS ORDERED: ACETAMINOPHEN 325 MG TAB PO PRN (21:00)
[2019-11-09] MEDS ORDERED: IPRATROPIUM BROM 0.5 MG/2.5ML INH SOL NEB PRN (21:00)
[2019-11-09] MEDS ORDERED: ONDANSETRON HCL 4 MG/2 ML VIAL IV PRN (21:00)
[2019-11-09] MEDS ORDERED: DOCUSATE SOD 100 MG CAP PO PRN (21:00)
[2019-11-09] MEDS ORDERED: HYDROcodone-ACET 5/325MG TAB PO PRN (21:00)
[2019-11-09] MEDS ORDERED: APIXABAN 5 MG TAB PO SCH ×2 (22:00)
[2019-11-09] MEDS: METOPROLOL TARTRATE 25 MG TAB PO SCH (22:27)
[2019-11-09] MEDS: TEMAZEPAM 15 MG CAP PO PRN (22:28)
--- NOTE | 2019-11-09 22:30 | NUR ---
PT arrived to 220a
[2019-11-09 22:32] VITALS: BP 149/99
--- NOTE | 2019-11-09 22:35 | NUR ---
pt A&Ox4. respirations are even and non labored on room air. sitter is at bedside.
[2019-11-10] VITALS (49 sets, daily range): BP systolic 95–159; BP diastolic 55–99
--- NOTE | 2019-11-10 03:39 | NUR ---
Tele monitor called regarding pts low HR. Tele strip was reading asystole. Nursing staff immediately went to assess the patient. pt is alert and responsive to questions and name at this time. Patients heart rate now in the 30s. pt was placed on 3Lnc. vitals were taken, and the pt was found to be severely bradycardic while also becoming symptomatic. crash cart was brought into the pts room. pt is experiencing increased lethargy, as well as sensitivity to light. At this point, code assist was called. Charge nurse was also in the room during this time.
[2019-11-10] MEDS ORDERED: NALOXONE HCL 0.4 MG/ML VIAL ONE (03:54)
--- NOTE | 2019-11-10 04:08 | NUR ---
PT transported to CT, and then ICU at this time. Bedside report given to OIL WELL CABLE TOOL DRILLER.
--- NOTE | 2019-11-10 04:20 | NUR ---
Arrival note Pt brought to ICU S/p episode of bradycardia. Pt placed in ICU room 112. Vital signs within normal range. Pt oriented to self. Pt stating, " i hope i ." Pt requesting swabs to moisten mouth. Oral care provided. Pt able to swab mouth on her own. Pt on 2 lts nc. IV sites benign. Bed locked and in lowest position, safety precautions in place. Will monitor pt carefully. Addendum: 11/10/19 at 0543 by OBDULIO COLLAZO RN vs on admission, hr 60, rr 10, bp 108/68, 99% on 2 lts nc.
[2019-11-10] MEDS ORDERED: DOPamine 1600MCG/ML D5W 250 ML IV SCH (04:59)
[2019-11-10] MEDS ORDERED: DOPamine 1600MCG/ML D5W 250 ML IV ONE (05:03)
--- NOTE | 2019-11-10 05:15 | NUR ---
Berman catheter insertion Pt tolerated well. Sterile technique used.
--- NOTE | 2019-11-10 05:20 | NUR ---
redness noted above Left wrist IV site, Dopamine gtt placed in right wrist. Extravasation protocol initiated.
--- NOTE | 2019-11-10 05:20 | NUR ---
Dopamine gtt started per md order. HR 44 at this time.
[2019-11-10] MEDS ORDERED: NITROGLYCERIN 2% OINT 1GM PKG TD ONE (05:24)
--- NOTE | 2019-11-10 05:40 | NUR ---
Call placed to spouse Nick, at number provided, voicemail not available.
--- NOTE | 2019-11-10 05:53 | NUR ---
Spoke with Nick, updated Nick on patient condition and transfer to ICU. Consent obtained for central line placement, verified with Kelly ROLDAN.
--- NOTE | 2019-11-10 07:28 | NUR ---
Dr Dukes at bedside Central line placed. Pt tolerated well.
--- NOTE | 2019-11-10 08:00 | NUR ---
BEHAVIOR PATIENT CALLING OUT FOR NURSE, DEMANDING SLEEPING MEDICATIONS. EXPLAINED TO PATIENT SHE HAS ALREADY HAD SLEEPING MEDICATION AND THAT THIS RN CAN'T GIVE ANY MORE SLEEPING MEDICATION.
--- NOTE | 2019-11-10 08:45 | NUR ---
Respiratory note: ASSESSED PT FOR PRN TX PT WAS AWAKE AND ALERT, NO RESP DISTRESS NOTED. HR 74, RR16, SPO2 97% ON 2L NC. BS ARE CLEAR AND DIMINISHED, NO INDICATION FOR TX AT THIS TIME. WILL CONTINUE TO MONITOR. PT KNOWS TO HAVE RT PAGED IF TX IS NEEDED.
[2019-11-10 08:53] LABS: Basophils # (auto) 0 10 ^3/uL (0-0.2); Basophils % (auto) 0.4 % (0.0-2.0); Eosinophils # (auto) 0 10 ^3/uL (0-0.8); Eosinophils % (auto) 0.6 % (0.0-7.0); Hematocrit 42.7 % (36.0-46.0); Hemoglobin 14.4 g/dL (12.2-16.2); Lymphocytes # (auto) 1.5 10 ^3/uL (0.4-5.4); Lymphocytes % (auto) 20.2 % (10.0-50.0); Mean Corpuscular Hemoglobin 30.2 pg (28.0-32.0); Mean Corpuscular Hgb Conc. 33.7 g/dL (32.0-36.0); Mean Corpuscular Volume 89.7 fL (80.0-100.0); Monocytes # (auto) 0.3 10 ^3/uL (0-1.3); Monocytes % (auto) 4.7 % (0.0-12.0); Neutrophils # (auto) 5.3 10 ^3/uL (1.6-8.6); Neutrophils % (auto) 74.1 % (37.0-80.0); Platelet Count (auto) 211 10^3/uL (140-450); Red Blood Cells 4.76 10^6/uL (4.0-5.20); White Blood Cell 7.2 10^3/uL (4.4-10.8)
[2019-11-10 09:06] LABS: BUN/Creatinine Ratio 15.5; Calcium 8.5 mg/dL (8.5-10.1)
--- NOTE | 2019-11-10 09:10 | NUR ---
SPOUSE THANG AT BEDSIDE. UPDATED ON POC. ALL QUESTIONS ANSWERED.
[2019-11-10] MEDS: METOPROLOL TARTRATE 25 MG TAB PO SCH ×2 (10:00→22:00)
[2019-11-10] MEDS: FOLIC ACID 1 MG TAB PO SCH (10:00)
[2019-11-10] MEDS: PANTOPRAZOLE 40 MG TAB PO SCH (10:00)
--- NOTE | 2019-11-10 10:04 | NUR ---
PT ASSESSED FOR PRN HHN TX. PT IS ON 3LNC, SPO2 94%< NO S/S OF RESPIRATORY DISTRESS. HHN TX NOT INDICATED. WILL CONTINUE TO MONITOR.
[2019-11-10] MEDS ORDERED: EPINEPHrine HCL 1 MG/10 ML SYRG IV ONE (10:39)
[2019-11-10] MEDS ORDERED: ATROPINE SULF 1 MG/10ml SYR IV ONE (10:39)
[2019-11-10] MEDS: NITROGLYCERIN 2% OINT 1GM PKG TD SCH ×3 (13:44→22:43)
[2019-11-10] MEDS: SODIUM CHLORIDE 0.9% 1,000 ML IV SCH ×2 (13:45→22:42)
--- NOTE | 2019-11-10 14:30 | NUR ---
DOPAMINE STOPPED, HR 80'S AND BLOOD PRESSURE IS WNL. SEE BP LOG.
[2019-11-10] MEDS: HALOPERIDOL 5 MG TAB PO SCH (17:05)
--- NOTE | 2019-11-10 18:24 | NUR ---
Telemetry admit from ICU ZACHERY PRUITTMARKEL admitted to Telemetry unit after SBAR received. Patient oriented to Wendy mensah RN, unit, room, bed, and unit policies regarding patient care and visiting hours. Patient now on continuous telemetry monitoring, tele box #31 and telemetry reading on arrival to unit is 83. Patient placed on bedside oxygen, weighed by bedscale and encouraged to call if they need something. Patient has sitter at bedside. Patient requires frequent redirection. Will continue to monitor q1hr and prn.
--- NOTE | 2019-11-10 18:25 | NUR ---
ICU pt transferred to floor MARKEL HAWLEY transferred to 205 via [facility] on [facility]. REPORT TO ALEXY ROLDAN.
--- NOTE | 2019-11-10 20:48 | NUR ---
CALLED AND INITIATED THE TELE PSYCH CONSULT FOR THE PATIENT. THEY SAID THEY WILL CALL ME BACK TO SET UP A TIME OR WHEN THE DOCTOR IS READY.
--- NOTE | 2019-11-10 21:56 | NUR ---
PT TALKING WITH TELE PSYCH DOCTOR AT THIS TIME.
--- NOTE | 2019-11-10 22:46 | NUR ---
PT COMPLAINING OF PAIN. OFFERED TYLENOL, HEATING PACK, REPOSITIONING. PT REFUSED ALL. PT DEMANDING NORCO OR MORE MEDICATIONS. EXPLAINED WHY SHE CAN NOT HAVE THIS AT THIS TIME. SITTER IN ROOM. WILL CONTINUE TO MONITOR.
--- NOTE | 2019-11-11 00:50 | NUR ---
Opening Shift Note Assumed care of patient, awake and alert to self. No S/S of distress/SOB or pain. InsTructed on POC and to call for assist PRN, will continue to monitor for changes Q1hr and PRN.
--- NOTE | 2019-11-11 00:50 | NUR ---
GAVE REPORT TO JAMAR GRAVES
[2019-11-11] MEDS: NITROGLYCERIN 2% OINT 1GM PKG TD SCH ×6 (01:55→21:20)
[2019-11-11] MEDS: SODIUM CHLORIDE 0.9% 1,000 ML IV SCH (03:01)
[2019-11-11 05:00] VITALS: BP 145/88
--- NOTE | 2019-11-11 05:50 | NUR ---
Respiratory note: ROUTINE PRN ASSESSMENT DONE. HR 92, RR 18, POX 95% ON RA, BS ARE CLEAR. NO SOB OR DISTRESS NOTED. PT WAS NOTIFY TO HAVE RT PAGE FOR MN TX.
--- NOTE | 2019-11-11 07:20 | NUR ---
Opening Shift Note Assumed care of patient from noc shift rn, awake and alert to self. Denies SOB or pain. patient is restless and threatening to leave, uncooperative and requiring redirection. Instructed on plan of care. Sitter at bedside, will continue to monitor for changes Q1hr and PRN.
[2019-11-11] MEDS: METOPROLOL TARTRATE 25 MG TAB PO SCH ×2 (09:45→23:45)
[2019-11-11] MEDS: PANTOPRAZOLE 40 MG TAB PO SCH (09:50)
[2019-11-11] MEDS: FOLIC ACID 1 MG TAB PO SCH (09:50)
--- NOTE | 2019-11-11 09:50 | NUR ---
PATIENT CONTINUES TO DEMAND TO LEAVE THE HOSPITAL. HOWEVER, FAMILY PRESENT AND NOT WILLING TO CHECK HER OUT AMA. PATIENT GOT UPSET AND REMOVED BEARDEN. DR YE AWARE.
[2019-11-11] MEDS: FOLIC ACID 1 MG, MULTIPLE VITAMIN 10 ML, MAGNESIUM SULF SDV 50% 8 MEQ, THIAMINE INJ 100... INJ SCH ×5 (12:57)
[2019-11-11] MEDS: LORazepam 2MG/ML-1ML VIAL IV PRN ×2 (12:58→21:20)
[2019-11-11] MEDS: chlordiazePOXIDE HCL 25 MG CAP PO PRN ×2 (16:45→23:43)
[2019-11-11] MEDS: HALOPERIDOL 5 MG TAB PO SCH (18:10)
--- NOTE | 2019-11-11 20:20 | NUR ---
Respiratory note: PT ASSESSED FOR PRN MED NEB TX. HR 74, RR 18, SPO2 95% ON RA. NO SIGNS OF ANY RESPIRATORY DISTRESS NOTED. ADVISED PT TO CALL IF TX IS NEEDED. RT NAME AND PAGER NUMBER WRITTEN ON PT'S BOARD.
[2019-11-11 22:00] VITALS: BP 134/81
[2019-11-12] MEDS: NITROGLYCERIN 2% OINT 1GM PKG TD SCH ×2 (01:59→05:50)
[2019-11-12 05:00] VITALS: BP 148/88
[2019-11-12] MEDS: LORazepam 2MG/ML-1ML VIAL IV PRN ×2 (05:50→14:35)
--- NOTE | 2019-11-12 06:10 | NUR ---
PRN MN TX NOT INDICATED AT THIS TIME. PT ON RA. 94% O2 SATS, HR 82 BPM, RR18 BPM, BS ARE CLEAR TO AUSCULTATION, RESPIRATIONS ARE EVEN AND NONLABORED. NO SOB OR ANY OTHER RESPIRATORY DISTRESS NOTED. WILL CONTINUE TO MONITOR PT.
[2019-11-12] MEDS: FOLIC ACID 1 MG TAB PO SCH (08:07)
[2019-11-12] MEDS: chlordiazePOXIDE HCL 25 MG CAP PO PRN (08:08)
[2019-11-12] MEDS: PANTOPRAZOLE 40 MG TAB PO SCH (08:08)
[2019-11-12] MEDS: METOPROLOL TARTRATE 25 MG TAB PO SCH ×2 (08:13→21:50)
[2019-11-12 09:00] VITALS: BP 159/96
--- NOTE | 2019-11-12 10:10 | NUR ---
Report given to Ephraim/RN. RN inform to follow up on pt having the 5150 written.
--- NOTE | 2019-11-12 11:45 | NUR ---
Received report from Raphael/JAMAR.
--- NOTE | 2019-11-12 13:23 | NUR ---
RECEIVED REPORT AND ASSUMED CARE OF PT. PT RESTING IN BED. NO S/S ACUTE DISTRESS NOTED. SAFETY ATTENDANCE AT BEDSIDE. BED AT LOWEST POSITION. CALL LIGHT AND BELONGINGS WITHIN REACH. WILL CONT TO MONITOR.
[2019-11-12] MEDS: FOLIC ACID 1 MG, MULTIPLE VITAMIN 10 ML, MAGNESIUM SULF SDV 50% 8 MEQ, THIAMINE INJ 100... INJ SCH ×5 (14:13)
[2019-11-12] MEDS: MUPIROCIN 2% OINT 15gm or 22gm TOP SCH (14:21)
--- NOTE | 2019-11-12 14:25 | NUR ---
assessment Patient is a 64 year old female who is alert and oriented. Patients cognitive abilities are intact. Prior to admission patient lived home with her Nick and functioned independently. Patient informed me she was able to care for her own ADLs. I informed patient she has a consult for psych placement. Patient informed me she was not trying to hurt herself. Patient informed me she took Clonidine and drank alcohol trying to go to sleep. Patient has already had tele psych and they recommended inpatient psych. Patient is waiting on now. I informed patient she has a right to speak to a home health care social worker regarding all care. I informed patient she has a right to participate in any and all discharge planning. Patient does not have a POA and advanced directive. I have offered patient information on POA and advanced directives. I informed the patient the advantages and benefits of having an Advanced Directive. Patient verbalized understanding and agreed to discharge plan. Addendum: 11/12/19 at 1432 by Dona BAEZA Amended: Links added.
[2019-11-12] MEDS: HALOPERIDOL 5 MG TAB PO SCH (18:32)
--- NOTE | 2019-11-12 19:24 | NUR ---
PT RESTING IN BED. NO S/S ACUTE DISTRESS NOTED. ENDORSED CARE TO NIGHT NURSE.
--- NOTE | 2019-11-12 19:30 | NUR ---
Opening note pt resting in left lateral position with eyes closed. pt does not show any s/s of distress or discomfort at this time. Sitter is at bedside. respirations are even and non labored on room air. bed is in low locked position, and call light is within reach.
--- NOTE | 2019-11-12 20:37 | NUR ---
Respiratory note: PRN HHN TX NOT INDICATED AT THIS TIME. PT DOES NOT DISPLAY SIGNS OF ANY DISTRESS AT THIS TIME. SPO2 95% ON RA HR 83 RR 18 BS CLEAR PT AWARE OF NURSE CARE BUTTON AND HOW TO OPERATE. PT INFORMED TO CALL IF ONSET OF SOB.
[2019-11-12 22:00] VITALS: BP 157/97
[2019-11-13] VITALS (8 sets, daily range): BP systolic 118–166; BP diastolic 67–105
--- NOTE | 2019-11-13 00:55 | NUR ---
pt resting in left lateral position. no complaints of pain or discomfort at this time. bed is in low locked position with call light within reach. Per Sitter at bedside, pt has been ambulating to the bathroom often. will continue to monitor.
--- NOTE | 2019-11-13 03:10 | NUR ---
pt resting in left lateral position with eyes open, awake and alert. pt has been awake for most of the shift. Sitter is at the bedside. pt denies any pain at this time. bed in low locked position, call light within reach, will continue to monitor.
[2019-11-13] MEDS: LORazepam 2MG/ML-1ML VIAL IV PRN (05:34)
[2019-11-13] MEDS: MUPIROCIN 2% OINT 15gm or 22gm TOP SCH ×3 (06:28→21:46)
--- NOTE | 2019-11-13 06:44 | NUR ---
pt resting in left lateral position with eyes closed. pt does not show s/s of pain or discomfort. respirations are even and nonlabored on room air. Sitter is at the bedside, and call light is within reach.
--- NOTE | 2019-11-13 06:50 | NUR ---
PRN MN TX NOT INDICATED AT THIS TIME.T IS ON RA. 94% O2 SATS, HR 74 BPM, RR18 BPM. RESPIRATIONS ARE EVEN AND NONLABORED. NO SOB OR ANY OTHER RESPIRATORY DISTRESS NOTED.
--- NOTE | 2019-11-13 07:00 | NUR ---
Opening Note Assumed patient care from MAGALY Rn.
[2019-11-13] MEDS: FOLIC ACID 1 MG TAB PO SCH (10:00)
[2019-11-13] MEDS: chlordiazePOXIDE HCL 25 MG CAP PO PRN (10:57)
--- NOTE | 2019-11-13 10:57 | NUR ---
Patient Rounds Patient experiencing some anxiety. Sitter and Rn at bedside with patient. Patient instructed not to stand for safety. MD aware.
[2019-11-13] MEDS: PANTOPRAZOLE 40 MG TAB PO SCH (10:58)
[2019-11-13] MEDS: METOPROLOL TARTRATE 25 MG TAB PO SCH ×2 (10:58→21:58)
--- NOTE | 2019-11-13 11:30 | NUR ---
Patient Round Patient is currently laying in bed, semi fowlers. No signs of distress at this time. Patient is AOx4, respirations even and unlabored. Tremors have ceased. Safety precautions in place. Will continue to monitor, sitter is at bedside.
--- NOTE | 2019-11-13 11:55 | NUR ---
Faxed [phone] application, tele psych consult and 3 days MD progress notes to [facility], [facility] and [facility].
[2019-11-13] MEDS: FOLIC ACID 1 MG, MULTIPLE VITAMIN 10 ML, MAGNESIUM SULF SDV 50% 8 MEQ, THIAMINE INJ 100... INJ SCH ×5 (13:10)
--- NOTE | 2019-11-13 14:05 | NUR ---
I called [facility] [phone] option 3 and spoke with Gege, she said they have no female beds available at this time but will add patient to their list and call when a bed becomes available. I called [facility] [phone] and spoke with refrigeration houseman Sarah, she said they have no female beds available at this time.
[2019-11-13] MEDS: HALOPERIDOL 5 MG TAB PO SCH (17:50)
--- NOTE | 2019-11-13 18:00 | NUR ---
PATIENT ROUNDS PATIENT IS CURRENTLY SITTING UP IN BED WATCHING TV. NO SIGNS OF DISTRESS AT THIS TIME. RESPIRATIONS EVEN AND UNLABORED, SAFETY PRECAUTIONS IN PLACE, SITTER AT BEDSIDE.WILL CONTINUE TO MONITOR.
--- NOTE | 2019-11-13 19:20 | NUR ---
Closing Report given to MAGALY ROLDAN.
--- NOTE | 2019-11-13 19:21 | NUR ---
Opening Shift Note Assumed care of patient. Pt is awake, alert and orientated x 4. Sitter is at bedside. No S/S of distress/SOB or pain. Pt is calm and speaking appropriate. Bed is in lowest position with side rails up x 2. Bed brakes are locked and call light is with in reach. HOB is 30 degrees. Instructed on POC and to call for assist PRN, will continue to monitor for changes Q1hr and PRN.
[2019-11-13] MEDS: TEMAZEPAM 15 MG CAP PO PRN (21:46)
[2019-11-14 05:00] VITALS: BP 105/74
--- NOTE | 2019-11-14 05:30 | NUR ---
[facility] informing that [facility] do not a vacant bed for the patient and [facility]ai[facility] will endorse to AM shift.
--- NOTE | 2019-11-14 07:30 | NUR ---
Opening Note Assumed patient care from MAGALY RN.
[2019-11-14] MEDS: LORazepam 2MG/ML-1ML VIAL IV PRN (07:56)
--- NOTE | 2019-11-14 08:13 | NUR ---
RECIEVED REPORT FROM NOC SHIFT THERE ARE CURRENTLY NO AVAIL BEDS [facility] WILL CONT TO MONITOR AND ASSIST IN PLACEMENT
--- NOTE | 2019-11-14 08:45 | NUR ---
at bedside Dr. Gamble at bedside discussing plan of care with patient. Patient to be transferred to psych facility, currently waiting for placement. Will follow up with social worker assistant.
[2019-11-14 09:00] VITALS: BP 146/85
--- NOTE | 2019-11-14 09:20 | NUR ---
Respiratory note: PT IS AWAKE, AND ALERT. NO RESPIRATORY DISTRESS NOTED. SPO2 96% ON RA, HR 82, RR 18, BS CLEAR BILATERALLY. PRN MEDNEB TX NOT INDICATED AT THIS TIME. PT INFORMED TO PUSH CALL BUTTON IF INCREASED WOB, SOB, OR WHEEZING OCCURS.
--- NOTE | 2019-11-14 09:20 | NUR ---
Called Called Marisela at , left message, will follow up.
--- NOTE | 2019-11-14 10:02 | NUR ---
I called [facility] [phone] option 3 and spoke with Jojo, she said they have no beds right now but that this patient is on their waiting list. I called [facility] [phone] and spoke with malt house supervisor Sarah, she said they have no female beds available at this time.
[2019-11-14] MEDS: FOLIC ACID 1 MG TAB PO SCH (10:12)
[2019-11-14] MEDS: PANTOPRAZOLE 40 MG TAB PO SCH (10:12)
[2019-11-14] MEDS: METOPROLOL TARTRATE 25 MG TAB PO SCH ×2 (10:13→22:24)
[2019-11-14] MEDS: MUPIROCIN 2% OINT 15gm or 22gm TOP SCH ×2 (10:21→22:24)
[2019-11-14 13:00] VITALS: BP 143/84
[2019-11-14] MEDS: FOLIC ACID 1 MG, MULTIPLE VITAMIN 10 ML, MAGNESIUM SULF SDV 50% 8 MEQ, THIAMINE INJ 100... INJ SCH ×5 (13:08)
[2019-11-14 17:00] VITALS: BP 154/89
[2019-11-14] MEDS: HALOPERIDOL 5 MG TAB PO SCH (17:05)
--- NOTE | 2019-11-14 19:15 | NUR ---
Closing Note Report given to MAGALY ROLDAN.
[2019-11-14 22:00] VITALS: BP 163/97
[2019-11-14] MEDS: TEMAZEPAM 15 MG CAP PO PRN (22:24)
[2019-11-15 05:00] VITALS: BP 153/97
--- NOTE | 2019-11-15 07:21 | NUR ---
PT. ASSESSED FOR PRN. MN. TX. , NO RESP. DISTRESS OR SOB NOTED. BS. ARE CLEAR AND DIMINISHED IN THE BASES. HR=84,RR=16,SP02=93% ON RA. TX. NOT INDICATED AT THIS TIME. NO TX. GIVEN, PT. MAY CALL IF NEEDED.
[2019-11-15 08:31] VITALS: BP 158/101
[2019-11-15] MEDS: FOLIC ACID 1 MG TAB PO SCH (09:48)
[2019-11-15] MEDS: METOPROLOL TARTRATE 25 MG TAB PO SCH ×2 (09:50→22:17)
[2019-11-15] MEDS: PANTOPRAZOLE 40 MG TAB PO SCH (09:50)
[2019-11-15] MEDS: LORazepam 2MG/ML-1ML VIAL IV PRN (09:50)
[2019-11-15] MEDS: MUPIROCIN 2% OINT 15gm or 22gm TOP SCH ×2 (09:59→22:05)
--- NOTE | 2019-11-15 10:16 | NUR ---
I called [facility] [phone] option 3 and spoke with Jojo, she said this patient is on their list but they have no available beds at this time. I called [facility] [phone] and spoke with scalehouse attendant Sarah, she said they have no beds available at this time.
[2019-11-15] MEDS: chlordiazePOXIDE HCL 25 MG CAP PO PRN (11:05)
--- NOTE | 2019-11-15 11:46 | NUR ---
[facility] has referred packet to the following facilities: [facility], [facility] and [facility]
[2019-11-15] MEDS: FOLIC ACID 1 MG, MULTIPLE VITAMIN 10 ML, MAGNESIUM SULF SDV 50% 8 MEQ, THIAMINE INJ 100... INJ SCH ×5 (12:52)
[2019-11-15 13:31] VITALS: BP 140/69
[2019-11-15 17:38] VITALS: BP 142/86
[2019-11-15] MEDS: HALOPERIDOL 5 MG TAB PO SCH (19:17)
--- NOTE | 2019-11-15 19:21 | NUR ---
Opening Shift Note Assumed care of patient. Pt awoke upon entry. Pt is awake, alert and orientated x 4. Sitter is at bedside. No S/S of distress/SOB or pain. Pt is calm and speaking appropriate. Bed is in lowest position with side rails up x 2. Bed brakes are locked and call light is with in reach. HOB is 30 degrees. Instructed on POC and to call for assist PRN, will continue to monitor for changes Q1hr and PRN.
--- NOTE | 2019-11-15 20:03 | NUR ---
5150 pt interviewed. 5150 assessment completed and initiated.
[2019-11-15 22:00] VITALS: BP 156/95
[2019-11-15] MEDS: TEMAZEPAM 15 MG CAP PO PRN (22:05)
[2019-11-15 23:00] VITALS: BP 115/73
--- NOTE | 2019-11-15 23:28 | NUR ---
heart rate pt exhibiting heart pauses. pt woken up. Asymptomatic. Will continue to monitor.
[2019-11-16 05:40] VITALS: BP 127/90
[2019-11-16 09:09] VITALS: BP 132/71
[2019-11-16] MEDS: FOLIC ACID 1 MG TAB PO SCH (09:59)
[2019-11-16] MEDS: MUPIROCIN 2% OINT 15gm or 22gm TOP SCH (09:59)
[2019-11-16] MEDS: LORazepam 2MG/ML-1ML VIAL IV PRN (09:59)
[2019-11-16] MEDS: PANTOPRAZOLE 40 MG TAB PO SCH (09:59)
[2019-11-16] MEDS: METOPROLOL TARTRATE 25 MG TAB PO SCH (10:00)
--- NOTE | 2019-11-16 10:10 | NUR ---
I faxed current 5150 application and updated clinical information to [facility]. I called [facility] [phone] option 3 and was on hold for than 10 minutes, will try again. I called [facility] [phone] and spoke with clubhouse attendant Pepper, she said they have no female beds available at this time.
[2019-11-16] MEDS: chlordiazePOXIDE HCL 25 MG CAP PO PRN (12:02)
[2019-11-16] MEDS: FOLIC ACID 1 MG, MULTIPLE VITAMIN 10 ML, MAGNESIUM SULF SDV 50% 8 MEQ, THIAMINE INJ 100... INJ SCH ×5 (12:30)
[2019-11-16 13:00] VITALS: BP 130/67
--- NOTE | 2019-11-16 13:51 | NUR ---
I received a call from Yolande at [facility] asking about MRSA + nares and heart rate/pause charted by nurse last night. I let Yolande know that Dr. Purvi Gamble had added to his note today that patient remains medically stable for transfer. 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 I spoke with Dr. Purvi Gamble about the plan of care for this patient-he will order for re-swab of nares to check MRSA status.
--- NOTE | 2019-11-16 14:07 | NUR ---
Spoke to Marisela Villegas, Ladies' Hat Trimmer at [facility], regarding clarification of medical clearance. She will speak to physician about MRSA+ and the heart rate that was documented. [facility] will continue to attempt placement while waiting for the clarification. Referral has been faxed to the following facilities: Isabel Mart[facility] Kaycee Larose [facility] Luigi Ellis
--- NOTE | 2019-11-16 15:48 | NUR ---
Received call from Massiel at [facility]. Patient has been accepted under Dr. Pradhan. For report call [phone].
--- NOTE | 2019-11-16 16:04 | NUR ---
I received a call from Yolande at [facility] letting me know that [facility] is accepting this patient under Dr. Pradhan. Nurse to call report to [phone]. I spoke with nurse Jazmyn, she had already received a call from [place] [facility] and gave them report. I called [facility] and spoke with Joshua-warp picker time set for 1800 (auth number [id number]).
[2019-11-16 16:25] VITALS: BP 131/80
[2019-11-16 17:00] VITALS: BP 140/86
[2019-11-16] MEDS: HALOPERIDOL 5 MG TAB PO SCH (17:20)
--- NOTE | 2019-11-16 18:32 | NUR ---
DISCHARGE: PATIENT TRANSPORTED TO [facility] BY [facility]. PATIENT EDUCATED ON ALL MATERIALS AND PLAN OF CARE. PATIENT TELE BOX REMOVED AND RETURNED TO CARDIO UNIT, IV DISCONTINUED MANUAL PRESSURE APPLIED. PATIENT LEFT WITH EVEN AND UNLABORED RESPIRATIONS WITH ALL BELONGINGS.
== END 2019-11-16 18:20 | disposition short-term general hospital (02) | DRG 917 ==
LOC: ER 15:04 → EDBD 15:04 → TELE 15:05 → TELE-CENTR 22:40 → ICU WEST 11-10 04:20 → TELE-CENTR 11-10 18:24
PROVIDERS: ADMIT Hospitalist; ATTEND Family Medicine
PROC: 05HM33Z Insertion of Infusion Device into Right Internal Jugular Vein, Percutaneous Approach (ICD-10-PCS; principal; 2019-11-10)
DX: T42.4X1A Poisoning by benzodiazepines, accidental (unintentional), initial encounter (principal); G93.41 Metabolic encephalopathy; F10.239 Alcohol dependence with withdrawal, unspecified; I10 Essential (primary) hypertension; F32.9 Major depressive disorder, single episode, unspecified; J44.9 Chronic obstructive pulmonary disease, unspecified; E86.0 Dehydration; R00.1 Bradycardia, unspecified; I95.9 Hypotension, unspecified; F41.9 Anxiety disorder, unspecified; G47.00 Insomnia, unspecified; Z85.42 Personal history of malignant neoplasm of other parts of uterus; Y92.89 Other specified places as the place of occurrence of the external cause
CPT/HCPCS: 36415; 70450; 71045; 74176; 80048; 80053; 80307; 80320; 80329; 82962; 85025; 87081; 93005; G0378

== ENCOUNTER 2019-12-01 15:26 | Inpatient (IN) | payer OTHER ==
[~2019-12-01] VITALS: Ht 160 cm; Wt 55.0 kg
[2019-12-01 15:57] LABS: Basophils # (auto) 0 10 ^3/uL (0-0.2); Basophils % (auto) 0.2 % (0.0-2.0); Eosinophils # (auto) 0 10 ^3/uL (0-0.8); Hemoglobin 15.3 g/dL (12.2-16.2); Lymphocytes # (auto) 1.1 10 ^3/uL (0.4-5.4); Lymphocytes % (auto) 7.1 % (10.0-50.0); Mean Corpuscular Hemoglobin 31.1 pg (28.0-32.0); Mean Corpuscular Hgb Conc. 34.8 g/dL (32.0-36.0); Mean Corpuscular Volume 89.5 fL (80.0-100.0); Monocytes # (auto) 0.6 10 ^3/uL (0-1.3); Monocytes % (auto) 4.2 % (0.0-12.0); Neutrophils # (auto) 13.4 10 ^3/uL (1.6-8.6); Neutrophils % (auto) 88.5 % (37.0-80.0); Nucleated Red Blood Cells % 0.7 %; Platelet Count (auto) 224 10^3/uL (140-450); Red Blood Cells 4.92 10^6/uL (4.0-5.20); Red Cell Distribution Width 14.1 % (11.8-14.3); White Blood Cell 15.2 10^3/uL (4.4-10.8)
[2019-12-01] MEDS ORDERED: SODIUM CHLORIDE 0.9% 1,000 ML IVB ONE (16:09)
[2019-12-01 16:16] LABS: Salicylate < 1.7 mg/dL (2.8-20.0)
[2019-12-01 16:17] LABS: Alanine Aminotransferase 29 U/L (13-56); Albumin 4.4 g/dL (3.4-5.0); Anion Gap 11 (5-15); BUN/Creatinine Ratio 18.1; Blood Alcohol < 3.0 mg/dL (0-5); Blood Urea Nitrogen 17 mg/dL (7-18); Calcium 9.3 mg/dL (8.5-10.1); Carbon Dioxide 25 mmol/L (21-32); Chloride 101 mmol/L (98-107); GFR African American 77 mL/min; GFR Non-African American 64 mL/min; Glucose 78 mg/dL (74-106); Magnesium 1.7 mg/dL (1.6-2.6); Potassium 3.5 mmol/L (3.5-5.1); Sodium 137 mmol/L (136-145)
[2019-12-01 16:19] LABS: Alkaline Phosphatase 59 U/L (45-117); Aspartate Aminotransferase 26 U/L (15-37); Bilirubin, Total 0.8 mg/dL (0.2-1.0); Total Protein 8.1 g/dL (6.4-8.2)
[2019-12-01 16:20] LABS: Acetaminophen < 2.0 ug/mL (10-30)
[2019-12-01 16:33] LABS: Urine Bacteria NONE SEEN /hpf (None Seen); Urine Blood Negative /uL (Negative); Urine Hyaline Cast FEW /lpf (0 - 2); Urine Mucus FEW (None Seen); Urine Specific Gravity 1.011 (1.001-1.035); Urine WBC 4 /hpf (0 - 5)
[2019-12-01 16:51] LABS: Amphetamine Screen, Urine NEGATIVE (NEGATIVE); Barbiturate Scree,Urine NEGATIVE (NEGATIVE); Benzodiazephine Screen, Urine POSITIVE (NEGATIVE); Cannabinoid Screen, Urine NEGATIVE (NEGATIVE); Cocaine Screen, Urine NEGATIVE (NEGATIVE); Opiate Scree,Urine NEGATIVE (NEGATIVE); Phencyclidine Screen, Urine NEGATIVE (NEGATIVE)
[2019-12-01] MEDS ORDERED: AZITHROMYCIN 500MG/ 250ML 250 ML IV ONE (18:15)
[2019-12-01] MEDS ORDERED: THIAMINE HCL 100 MG TAB PO ONE (18:15)
[2019-12-01] MEDS ORDERED: FOLIC ACID 1 MG, MULTIPLE VITAMIN 10 ML, MAGNESIUM SULF SDV 50% 8 MEQ, THIAMINE INJ 100... INJ SCH ×5 (18:20)
[2019-12-01] MEDS ORDERED: HALOPERIDOL LACTATE 5 MG/ML INJ VIAL IV PRN (18:45)
[2019-12-01] MEDS ORDERED: MORPHINE SULF INJ 2 MG/ML SYRINGE 1ML IV PRN (18:45)
[2019-12-01] MEDS ORDERED: NITROGLYCERIN 0.4 MG SL TAB SL PRN (18:45)
[2019-12-01] MEDS ORDERED: HALOPERIDOL LACTATE 5 MG/ML INJ VIAL IM ONE (18:45)
[2019-12-01] MEDS ORDERED: ONDANSETRON HCL 4 MG/2 ML VIAL IV PRN (19:00)
[2019-12-01] MEDS ORDERED: hydrALAZINE HCL 20 MG/ML VL IV PRN (19:00)
[2019-12-01] MEDS ORDERED: IPRATROPIUM BROM 0.5 MG/2.5ML INH SOL NEB PRN (19:00)
[2019-12-01] MEDS ORDERED: ALBUTEROL SULF 2.5 MG/0.5ML(0.5%) NEB SOLN NEB PRN (19:00)
[2019-12-01] MEDS ORDERED: diphenhdrAMINE HCL 50 MG/1 ML VL IV ONE (19:00)
[2019-12-01 19:07] VITALS: BP 165/90
[2019-12-01 20:35] VITALS: BP 190/87
--- NOTE | 2019-12-01 20:38 | NUR ---
Telemetry admit from ER Patient admitted to Telemetry unit. Patient confused and disoriented, trying to get out of bed, patient oriented to primary RN, unit, room, bed, and unit policies regarding patient care and visiting hours. Placed sitter at bedside per MD orders. Will hold off tele psych consult until patient is less confused per MD orders. Patient now on continuous telemetry monitoring, tele box # 3 and telemetry reading on arrival to unit is sinus rhythm. Patient weighed by bedscale and encouraged to call if they need something. All questions and concerns addressed. Will continue to monitor Q1 and PRN. Call light and bedside table are within reach. Safety precautions maintained, bed is in lowest position, and bed rails 2x.
[2019-12-01] MEDS ORDERED: CLON0.5T3 PO (21:12)
[2019-12-01] MEDS ORDERED: ARIP2TAB PO (21:13)
[2019-12-01] MEDS: FAMOTIDINE (10MG/ML) 2ML VL IV SCH (21:27)
[2019-12-01] MEDS: cefTRIAXone 1GM/50ML D5W 50 ML IV SCH (23:16)
[2019-12-02] MEDS: ACETAMINOPHEN 500 MG TAB PO PRN ×3 (00:19→18:28)
--- NOTE | 2019-12-02 00:30 | NUR ---
Patient continues to have episodes of confusion Will continue to hold off on tele psych per MD orders, until patient has less confusion
--- NOTE | 2019-12-02 01:15 | NUR ---
IV removal IV on right AC DC'd with sterile technique, catheter fully intact. Pressure dressing applied to site. Patient tolerated procedure well. IV insertion IV access obtained, via clean sterile technique by inserting 22 gauge catheter at right upper arm after 1 attempt. IV secured properly. No trauma to site. Patient tolerated procedure well.
--- NOTE | 2019-12-02 02:25 | NUR ---
Patient continues to have episodes of confusion Will continue to hold off on Tele psych per MD orders, until patient has less confusion. Will continue to monitor Q1 and PRN. Addendum: 12/02/19 at 0301 by Violet Astorga RN Made charge nurse aware of reason for holding off tele psych consult.
[2019-12-02 05:00] VITALS: BP 157/92
--- NOTE | 2019-12-02 07:15 | NUR ---
Opening Shift Note Assumed care of patient, awake and alert. No S/S of distress/SOB or pain. Instructed on POC and to call for assist PRN, will continue to monitor for changes Q1hr and PRN. Fall precautions in place per safety protocol. Sitter at bedside per MD Orders.
[2019-12-02 07:33] LABS: Basophils # (auto) 0 10 ^3/uL (0-0.2); Basophils % (auto) 0.3 % (0.0-2.0); Eosinophils # (auto) 0 10 ^3/uL (0-0.8); Eosinophils % (auto) 0.2 % (0.0-7.0); Hematocrit 37.8 % (36.0-46.0); Hemoglobin 13.1 g/dL (12.2-16.2); Lymphocytes # (auto) 1.7 10 ^3/uL (0.4-5.4); Lymphocytes % (auto) 21.9 % (10.0-50.0); Mean Corpuscular Hemoglobin 31.1 pg (28.0-32.0); Mean Corpuscular Hgb Conc. 34.6 g/dL (32.0-36.0); Monocytes # (auto) 0.4 10 ^3/uL (0-1.3); Monocytes % (auto) 5.5 % (0.0-12.0); Neutrophils # (auto) 5.5 10 ^3/uL (1.6-8.6); Neutrophils % (auto) 72.1 % (37.0-80.0); Platelet Count (auto) 203 10^3/uL (140-450); Red Blood Cells 4.21 10^6/uL (4.0-5.20); Red Cell Distribution Width 13.8 % (11.8-14.3); White Blood Cell 7.7 10^3/uL (4.4-10.8)
[2019-12-02 07:57] LABS: BUN/Creatinine Ratio 15.1; Calcium 8.9 mg/dL (8.5-10.1); Potassium 3.1 mmol/L (3.5-5.1)
[2019-12-02 09:00] VITALS: BP 166/97
--- NOTE | 2019-12-02 09:30 | NUR ---
Spoke to Alison from poison control, Per Alison, patient is cleared from a toxicology standpoint. Will cont to monitor patient.
[2019-12-02] MEDS: cefTRIAXone 1GM/50ML D5W 50 ML IV SCH (09:37)
[2019-12-02] MEDS: FAMOTIDINE (10MG/ML) 2ML VL IV SCH ×2 (09:38→22:45)
[2019-12-02] MEDS: AZITHROMYCIN 500MG/ 250ML 250 ML IV SCH (09:38)
--- NOTE | 2019-12-02 10:00 | NUR ---
Patient requesting pain medication for headache 05/08. Patient medicated with acetaminophen as it is the only medications available at this time. Will cont to monitor.
--- NOTE | 2019-12-02 11:22 | NUR ---
RT NOTE: PRN BREATHING TX. NOT INDICATED AT THIS TIME. NO S/S OF RESPIRATORY DISTRESS NOTED. PT. HR. 92, RR 16, POX 96% R/A. PT. AWARE TO NOTIFY RN IF BREATHING TX. IS NEEDED.
--- NOTE | 2019-12-02 11:25 | NUR ---
Hospitalist at bedside MD Gamble at bedside, aware of patient status including low potassium level and patient positive for MRSA in the nares. Received new orders, orders read back and verified. Will carry out new orders and cont to monitor patient. Per MD Gamble, patient is statble to have tele psych consult now, Will do consult now.
[2019-12-02] MEDS ORDERED: POTASSIUM CHL 20 Meq TABLET PO ONE (11:30)
[2019-12-02] MEDS: FOLIC ACID 1 MG, MULTIPLE VITAMIN 10 ML, MAGNESIUM SULF SDV 50% 8 MEQ, THIAMINE INJ 100... INJ SCH ×5 (12:00)
[2019-12-02] MEDS ORDERED: DIPH25CA66 PO (12:49)
[2019-12-02 13:00] VITALS: BP 133/88
--- NOTE | 2019-12-02 13:52 | NUR ---
Received call from MD Gamble. [facility] to [facility] and to obtain medical records from [facility]. Orders read back and verified, Will carry out new orders and will cont to monitor patient.
[2019-12-02 17:00] VITALS: BP 148/84
--- NOTE | 2019-12-02 18:00 | NUR ---
Patients blood glucose upon arrival to unit was 543. Recheck showed 536. Hospitalist called and made aware. New orders received for one time dose of 5 units IV regular insulin and moderate sliding scale q4h. Orders read back and verified. Will carry out new orders and will cont to monitor patient. Addendum: 12/02/19 at 1920 by EMMA HENLEY RN RN wrong patient
--- NOTE | 2019-12-02 18:05 | NUR ---
Telemetry admit from ER ZACHERY PRUITTMARKEL admitted to Telemetry unit after SBAR received. Patient oriented to EMMA HENLEY RN primary RN, unit, room, bed, and unit policies regarding patient care and visiting hours. Patient now on continuous telemetry monitoring, tele box #9 and telemetry reading on arrival to unit is ST. Patient weighed by bedscale and encouraged to call if they need something. All questions and concerns addressed, patient verbalized understanding. Addendum: 12/02/19 at 1920 by EMMA HENLEY RN RN wrong patient
--- NOTE | 2019-12-02 19:20 | NUR ---
Opening Shift Note Assumed care of patient, awake and alert. No S/S of distress/SOB or pain. Sitter at bedside. Instructed on POC and to call for assist PRN, will continue to monitor for changes Q1hr and PRN. Call light and bedside table are within reach. Standard precautions maintained bed is in lowest position and bed rails 2x.
--- NOTE | 2019-12-02 19:23 | NUR ---
Endorsed care to night RN Violet. Patient resting in bed, no distress, sob, or pain noted at this time.
--- NOTE | 2019-12-02 20:20 | NUR ---
Respiratory note: PT DOES NOT APPEAR TO BE IN ANY DISTRESS. PRN HHN TX NOT INDICATED AT THIS TIME. HR 79 SPO2 96% ON RA RR 20 BS DIMINISHED PT EDUCATED ON USE OF NURSE CALL BUTTON. WILL CONTINUE TO MONITOR.
[2019-12-02 22:00] VITALS: BP 147/84
[2019-12-02] MEDS: MUPIROCIN 2% OINT 15gm or 22gm EACHNOSTRI SCH (22:45)
[2019-12-02] MEDS: LORazepam 2MG/ML-1ML VIAL IV PRN (22:46)
[2019-12-03 05:00] VITALS: BP 123/67
--- NOTE | 2019-12-03 07:15 | NUR ---
Opening Shift Note: Assumed care of patient, awake and alert x 3. No S/S of distress/SOB or pain. Bed in lowest locked position, side rails up x 2, call light within reach. Sitter at bedside for patient safety. Patient instructed on POC and to call for assist PRN, will continue to monitor for changes Q1hr and PRN.
--- NOTE | 2019-12-03 08:11 | NUR ---
AMBULATION ATTEMPT Attempted to ambulate with patient. Patient very weak. Patient placed back in bed, bed alarm activated at this time.
[2019-12-03] MEDS: cefTRIAXone 1GM/50ML D5W 50 ML IV SCH (08:51)
[2019-12-03 09:00] VITALS: BP 145/84
[2019-12-03] MEDS: LORazepam 2MG/ML-1ML VIAL IV PRN ×2 (09:08→15:36)
[2019-12-03] MEDS: MUPIROCIN 2% OINT 15gm or 22gm EACHNOSTRI SCH ×2 (10:11→22:43)
[2019-12-03] MEDS: FAMOTIDINE (10MG/ML) 2ML VL IV SCH ×2 (10:11→22:44)
[2019-12-03] MEDS: chlordiazePOXIDE HCL 25 MG CAP PO PRN ×2 (10:12→18:13)
[2019-12-03] MEDS: AZITHROMYCIN 500MG/ 250ML 250 ML IV SCH (10:12)
--- NOTE | 2019-12-03 10:15 | NUR ---
DR UGO Gamble at bedside. Discussed POC with patient. Patient verbally agreed.
[2019-12-03] MEDS: FOLIC ACID 1 MG, MULTIPLE VITAMIN 10 ML, MAGNESIUM SULF SDV 50% 8 MEQ, THIAMINE INJ 100... INJ SCH ×5 (12:28)
[2019-12-03 12:30] VITALS: BP 130/76
--- NOTE | 2019-12-03 12:41 | NUR ---
Patient asleep at this time. No S/S of distress noted. Will continue to monitor.
--- NOTE | 2019-12-03 13:24 | NUR ---
Called Dr. Gamble at this time. Patient request physical therapy. Per Dr Gamble "No physical therapy for this patient." Will continue to monitor.
--- NOTE | 2019-12-03 13:51 | NUR ---
assessment Patient is a 64 year old female who is alert and oriented. Patients cognitive abilities are intact. Prior to admission patient lived home with her Nick and functioned independently. Patient informed me she was able to care for her own ADLs. I informed patient she has a consult for psych placement and multiple suicide attempts. Patient informed me she was not trying to hurt herself. Patient informed me she took Clonidine and drank wine trying to go to sleep like on last admission. Patient has already had tele psych and they recommended inpatient psych. Patient has 51/50 now. Marisela insurance case manager will work on psych placement. Patient is requesting not to go to [facility]. I informed patient she has a right to speak to a group social worker regarding all care. I informed patient she has a right to participate in any and all discharge planning. Patient does not have a POA and advanced directive. I have offered patient information on POA and advanced directives. I informed the patient the advantages and benefits of having an Advanced Directive. Patient verbalized understanding and agreed to discharge plan. Addendum: 12/03/19 at 1354 by Dona BAEZA Amended: Links added.
--- NOTE | 2019-12-03 14:55 | NUR ---
I spoke with patient's primary nurse Alejandra regarding the plan of care for this patient. Per Alejandra, tele psych and 1070 application complete-requested that she fax reports to me.
[2019-12-03] MEDS: ACETAMINOPHEN 500 MG TAB PO PRN (15:36)
[2019-12-03 17:00] VITALS: BP 144/82
--- NOTE | 2019-12-03 17:05 | NUR ---
I faxed tele psych report, 2372 application and clinical information to [facility] (phone number [phone]).
--- NOTE | 2019-12-03 17:43 | NUR ---
Report given to JAMAR Frazier. No S/S of distress at time of transfer.
--- NOTE | 2019-12-03 17:44 | NUR ---
Assumed Care of Pt Assumed care of pt from JAMAR Shea. Pt is a/ox2-3 with no s/s of distress. Sitter is present in room. Safety measures maintained with call light within reach, bed in lowest position and side rails up. Will continue to monitor.
--- NOTE | 2019-12-03 18:10 | NUR ---
Respiratory note: ASSESSED PT FOR PRN MED NEB TX. PT IS CURRENTLY ON ROOM AIR: HR 59, RR 18, SPO2 95%. PT SHOWS NO S/S OF SOB OR RESPIRATORY DISTRESS. MED NEB TX NOT INDICATED AT THIS TIME. PT AWARE TO HAVE RT PAGED IF SOB OCCURS. WILL CONTINUE TO MONITOR.
--- NOTE | 2019-12-03 19:45 | NUR ---
Opening Shift Note Assumed care of patient after receiving report from eliceo Frazier RN. Patient awake and visibly agitated, resting in bed with sitter at bedside, no S/S of SOB or pain. Instructed on POC and to call for assist PRN, will continue to monitor for changes Q1hr and PRN.
--- NOTE | 2019-12-03 19:45 | NUR ---
Patient behavior Patient had become agitated and resisting care from TELEPHONE STATION REPAIRER who was sitting at bedside, patient was trying to get out of bed and not following directions. Patient was requesting medication to sleep and was becoming more agitated/irritable when it was not given to her "fast enough". Patient was given PRN Haldol for agitation, and was instructed on breathing techniques to help reduce anxiety. Will continue to monitor.
[2019-12-03] MEDS: HALOPERIDOL LACTATE 5 MG/ML INJ VIAL IM PRN (19:54)
[2019-12-03 22:00] VITALS: BP 130/80
[2019-12-04] MEDS: LORazepam 2MG/ML-1ML VIAL IV PRN ×3 (01:40→19:28)
[2019-12-04 05:00] VITALS: BP 122/69
[2019-12-04] MEDS: chlordiazePOXIDE HCL 25 MG CAP PO PRN ×2 (05:08→13:28)
--- NOTE | 2019-12-04 07:40 | NUR ---
Opening Shift Note Assumed care of patient. Patient is awake, alert, and oriented X, resting in bed. No S/S of respiratory distress, respirations are regular and non-labored. Patient reports headache and states she needs something for withdrawal syndrome. her request will be addressed per Dr';s order. bed in lower position, brakes are locked, call light within reach. Berman on bed frame. Sitter at bedside for safety measures. Instructed on POC and to call for assist PRN, will continue to monitor for changes Q1hr and PRN.
[2019-12-04 08:00] VITALS: BP 99/58
--- NOTE | 2019-12-04 08:10 | NUR ---
pain assessment patient states headache 10 out of 10. Pain med will administer per Dr's order.
[2019-12-04] MEDS: ACETAMINOPHEN 500 MG TAB PO PRN ×2 (08:24→19:58)
[2019-12-04] MEDS: cefTRIAXone 1GM/50ML D5W 50 ML IV SCH (08:59)
[2019-12-04 09:00] VITALS: BP 99/58
--- NOTE | 2019-12-04 09:25 | NUR ---
pain reassessment patient reports slight decrease in headache to 8 out of 10. will continue monitoring and offer non-pharmacologic measures.
[2019-12-04] MEDS: AZITHROMYCIN 500MG/ 250ML 250 ML IV SCH (09:57)
[2019-12-04] MEDS: FAMOTIDINE (10MG/ML) 2ML VL IV SCH ×2 (09:58→22:14)
--- NOTE | 2019-12-04 10:22 | NUR ---
RT NOTE: PRN BREATHING TX. NOT INDICATED AT THIS TIME. NO S/S OF RESPIRATORY DISTRESS NOTED. PT. SP02 96% R/A. PT. AWARE TO NOTIFY RN IF BREATHING TX. IS NEEDED.
[2019-12-04] MEDS: MUPIROCIN 2% OINT 15gm or 22gm EACHNOSTRI SCH ×2 (10:37→22:14)
[2019-12-04 13:00] VITALS: BP 117/51
[2019-12-04] MEDS: FOLIC ACID 1 MG, MULTIPLE VITAMIN 10 ML, MAGNESIUM SULF SDV 50% 8 MEQ, THIAMINE INJ 100... INJ SCH ×5 (13:46)
--- NOTE | 2019-12-04 16:52 | NUR ---
I called [facility] [phone] and spoke with Fátima, she said they have reached out to [facility], [facility], [facility] and [facility].
[2019-12-04 17:00] VITALS: BP 133/87
--- NOTE | 2019-12-04 19:00 | NUR ---
Patient care endorsed endorsed care to Zachary swenson. Patient laying comfortably in bed no acute distress or sob noted. Sitter at bedside
--- NOTE | 2019-12-04 19:25 | NUR ---
Opening Shift Note Assumed care of patient, awake, alert and anxious. The patient states that she is extremely anxious and requested medication for her anxiety. The patient also c/o a headache which is states is a severity of 4/10. No S/S of distress/SOB. Will administer PRN pain medication and anxiety medication. Instructed on POC and to call for assist PRN, will continue to monitor for changes Q1hr and PRN.
--- NOTE | 2019-12-04 19:29 | NUR ---
RT NOTE: PT ON ROOM AIR SPO2 97% HR 71, PT COMPLAINS OF PAIN. RN AND SITTER AT BEDSIDE. NO TX INDICATED AT THIS TIME.
[2019-12-04] MEDS: HALOPERIDOL LACTATE 5 MG/ML INJ VIAL IM PRN (20:17)
--- NOTE | 2019-12-04 20:45 | NUR ---
PAIN ASSESSMENT Per HANDWRITING EXPERT, the patient requested pain medication. Upon assessment, the patient states that he is currently having 10/10 generalized pain. Will administer pain medication per MD order. Addendum: 12/05/19 at 0045 by Zachary Suarez RN *wrong patient*
--- NOTE | 2019-12-04 21:09 | NUR ---
[facility]Olinda-packet in review Phil Garcia/Emerson- unable to medically accommodate patient
--- NOTE | 2019-12-04 21:16 | NUR ---
[facility]/Graciela-packet fax for review
--- NOTE | 2019-12-04 21:31 | NUR ---
MAYITO/Celestine-at Capacity Brenda Larose/Len-packet fax for review [facility]/Na-at capacity Isabel Hemphill/Kel-packet fax for review
[2019-12-04 22:05] VITALS: BP 127/76
[2019-12-05] MEDS: chlordiazePOXIDE HCL 25 MG CAP PO PRN ×3 (01:05→18:25)
--- NOTE | 2019-12-05 04:48 | NUR ---
[facility] s/w Roselyn, packet pending review
--- NOTE | 2019-12-05 04:49 | NUR ---
Ty Brown s/w Maria E. Will call back with outcome of packet
--- NOTE | 2019-12-05 04:54 | NUR ---
Isabel Hemphill s/lion Lee, states no bed for female as of now but will be having 3 female discharges soon. Packet on file for review
--- NOTE | 2019-12-05 04:55 | NUR ---
Still no beds at [facility] and [facility]
[2019-12-05 05:00] VITALS: BP 108/57
[2019-12-05] MEDS: LORazepam 2MG/ML-1ML VIAL IV PRN ×2 (05:00→14:56)
--- NOTE | 2019-12-05 05:13 | NUR ---
yT Brown. Maria E called back. Chart was not received but confirmation states received. Refax packet. Will endorse to AM shift to f/up
--- NOTE | 2019-12-05 06:00 | NUR ---
PATIENT BEHAVIOR Patient has become anxious and agitated again. The patient is yelling stating that she wants something stronger to stop her anxiety. Will administer Haldol and continue to monitor the patient.
[2019-12-05] MEDS: HALOPERIDOL LACTATE 5 MG/ML INJ VIAL IM PRN ×2 (06:11→21:45)
--- NOTE | 2019-12-05 08:34 | NUR ---
Received report from PM shift. Will continue to locate placement for Pt
--- NOTE | 2019-12-05 08:38 | NUR ---
PT ASSESSED FOR PRN HHN TX. PT IS ON ROOM AIR, SPO2 95%, HR 104, RR 20. NO S/S OF RESPIRATORY DISTRESS. PRN TX NOT INDICATED AT THIS TIME. WILL CONTINUE TO MONITOR.
--- NOTE | 2019-12-05 08:47 | NUR ---
Spoke with [facility], they confirmed they would be unable to accept Pt due to 5150 being written by a clinician out of county. They will only accept out of county holds written by PD
[2019-12-05] MEDS: cefTRIAXone 1GM/50ML D5W 50 ML IV SCH (09:05)
[2019-12-05] MEDS: MUPIROCIN 2% OINT 15gm or 22gm EACHNOSTRI SCH ×2 (10:05→22:47)
[2019-12-05] MEDS: FAMOTIDINE (10MG/ML) 2ML VL IV SCH ×2 (10:05→22:47)
[2019-12-05 10:45] VITALS: BP 108/57
[2019-12-05] MEDS: AZITHROMYCIN 500MG/ 250ML 250 ML IV SCH (10:56)
[2019-12-05] MEDS: DOCUSATE SOD 100 MG CAP PO PRN (10:57)
[2019-12-05] MEDS: FOLIC ACID 1 MG, MULTIPLE VITAMIN 10 ML, MAGNESIUM SULF SDV 50% 8 MEQ, THIAMINE INJ 100... INJ SCH ×5 (12:00)
--- NOTE | 2019-12-05 14:39 | NUR ---
I called [facility] [phone] and spoke with Maria E-I provided her with Dr. Purvi Gamble's cell phone number (per his request) to give to Dr. Patel because Dr. Purvi Gamble has been unable to get a hold of Dr. Patel with the provided number. Per Maria E she will give information to Dr. Patel.
--- NOTE | 2019-12-05 15:10 | NUR ---
SPOKE TO [facility] THEY SAID THEY HAVE BEEN IN TOUCH WITH DR Purvi YE AND THEY WANT A GARVIN TEST AND DR YE IS AWARE.
--- NOTE | 2019-12-05 16:50 | NUR ---
I called [facility] ([phone]) and spoke with Matteo, placed them on will call pending transfer to [facility] ([facility] auth number [id number]). I spoke with patient's primary nurse Keerthi and made her aware that [facility] is on will call.
--- NOTE | 2019-12-05 18:53 | NUR ---
Respiratory note: PT RECIEVED ON RA. PT IS AWAKE AND ALERT AT THIS TIME. NO RESP DISTRESS NOTED. SPO2 95%, HR 97, RR 20. BS CLR LEFT SIDE, RIGHT CLR/DIM. NO INDICATION FOR PRN TX AT THIS TIME. PT AWARE TO CALL FOR TX IF SOB/WHEEZING.
--- NOTE | 2019-12-05 18:56 | NUR ---
Report received from outgoing shift. Will continue to monitor and seek placement. S/W Rosanna from [facility]. Patient has not been accepted at [facility]. Patient is pending Qu[facility]'s Test.
--- NOTE | 2019-12-05 19:25 | NUR ---
Opening Shift Note Assumed care of patient, awake and alert. No S/S of distress/SOB or pain. Sitter is present at bedside. Instructed on POC and to call for assist PRN, will continue to monitor for changes Q1hr and PRN.
[2019-12-05 20:30] VITALS: BP 123/88
--- NOTE | 2019-12-05 23:39 | NUR ---
S/W patient's RN Zachary regarding orders for an Jj test. Per Zachary no orders in chart. Also s/w Jana (INO) and states that there are no orders. Stated to Jana that I will go ahead and start looking at other facilities.
--- NOTE | 2019-12-05 23:45 | NUR ---
S/W Claudette from [facility], patient still on their board for review, pending Jj Test
--- NOTE | 2019-12-06 00:50 | NUR ---
Called the following facilities [facility] Still no beds at any of these facilities. Will call in the AM when discharges happens and will have AM shift f/up and also f/up with [facility]
--- NOTE | 2019-12-06 00:55 | NUR ---
[facility] Received call from Faith who is from [facility]. Faith asked about the GARVIN testing for the patient. Faith asked to speak to the charge nurse. Charge nurse stated that Faith will look into other facilities that do not require the GARVIN testing.
[2019-12-06 05:56] VITALS: BP 122/77
--- NOTE | 2019-12-06 07:02 | NUR ---
Received report from restaurant shift supervisor. [facility] still working on placement.
[2019-12-06] MEDS: chlordiazePOXIDE HCL 25 MG CAP PO PRN ×2 (07:06→16:33)
--- NOTE | 2019-12-06 07:52 | NUR ---
Respiratory note: PT IS AWAKE, AND ALERT. RESPIRATORY DISTRESS NOT NOTED. SPO2 94% ON RA, HR 95, RR 18, BS CLEAR/DIMINISHED BILATERALLY. PRN MEDNEB TX NOT INDICATED AT THIS TIME. PT INFORMED TO PUSH CALL BUTTON IF INCREASED WOB, SOB, OR WHEEZING OCCURS.
[2019-12-06] MEDS: DOCUSATE SOD 100 MG CAP PO PRN (08:42)
[2019-12-06] MEDS: cefTRIAXone 1GM/50ML D5W 50 ML IV SCH (08:42)
[2019-12-06] MEDS: LORazepam 2MG/ML-1ML VIAL IV PRN ×3 (08:50→21:00)
[2019-12-06 09:00] VITALS: BP 110/63
[2019-12-06] MEDS: FAMOTIDINE (10MG/ML) 2ML VL IV SCH ×2 (09:39→21:15)
[2019-12-06] MEDS: MUPIROCIN 2% OINT 15gm or 22gm EACHNOSTRI SCH ×2 (09:39→21:16)
[2019-12-06] MEDS: AZITHROMYCIN 500MG/ 250ML 250 ML IV SCH (09:40)
[2019-12-06] MEDS: HALOPERIDOL LACTATE 5 MG/ML INJ VIAL IM PRN ×2 (10:34→18:37)
[2019-12-06 13:00] VITALS: BP 123/76
[2019-12-06] MEDS: FOLIC ACID 1 MG, MULTIPLE VITAMIN 10 ML, MAGNESIUM SULF SDV 50% 8 MEQ, THIAMINE INJ 100... INJ SCH ×5 (15:03)
[2019-12-06 17:00] VITALS: BP 143/86
--- NOTE | 2019-12-06 18:46 | NUR ---
Pending Transfer and COVID Test The patient is being transferred to the [facility]. There is a bed waiting for the patient. [facility] requires the patient to be tested for COVID-19 prior to any transfer. The patient was tested today. Swabs for COVID, Rapid Influenza A&B, and Rapid Strep were sent today. The patient is aware of the situation. Will continue to monitor.
--- NOTE | 2019-12-06 19:50 | NUR ---
Respiratory note: PT ASSESSED FOR PRN MED NEB TX, NO TX DESIRED NOR INDICATED AT THIS TIME. PT SLEEPING, EASILY AWAKES WITH NO DISTRESS. HR 82 RR 16 SPO2 97% ON RA BREATH SOUNDS ARE CLEAR/DIMINISHED T/O.
--- NOTE | 2019-12-06 19:50 | NUR ---
Opening Shift Note Assumed care of patient, awake and alert. No S/S of distress/SOB or pain. Instructed on POC and to call for assist PRN, will continue to monitor for changes Q1hr and PRN.
[2019-12-06 22:00] VITALS: BP 116/67
[2019-12-07] MEDS: chlordiazePOXIDE HCL 25 MG CAP PO PRN ×4 (00:40→17:55)
[2019-12-07 02:00] VITALS: BP 127/69
[2019-12-07] MEDS: HALOPERIDOL LACTATE 5 MG/ML INJ VIAL IM PRN ×3 (04:29→21:05)
[2019-12-07 05:00] VITALS: BP 127/82
--- NOTE | 2019-12-07 06:43 | NUR ---
Received report from machinist 2nd shift. [facility] monitoring notes for transfer to [place].
--- NOTE | 2019-12-07 07:30 | NUR ---
Opening Shift Note Assumed care of patient, awake and alert. No S/S of SOB or pain. Patient shaking and anxious. Anxiety management medications discussed with patient. Instructed on POC and to call for assist PRN, will continue to monitor for changes Q1hr and PRN.
[2019-12-07 08:00] VITALS: BP 115/67
[2019-12-07] MEDS: LORazepam 2MG/ML-1ML VIAL IV PRN ×3 (08:14→21:06)
[2019-12-07 09:00] VITALS: BP 115/67
[2019-12-07] MEDS: MUPIROCIN 2% OINT 15gm or 22gm EACHNOSTRI SCH (09:33)
[2019-12-07] MEDS: cefTRIAXone 1GM/50ML D5W 50 ML IV SCH (09:33)
[2019-12-07] MEDS: FAMOTIDINE (10MG/ML) 2ML VL IV SCH ×2 (09:33→21:37)
[2019-12-07] MEDS: AZITHROMYCIN 500MG/ 250ML 250 ML IV SCH (11:03)
--- NOTE | 2019-12-07 13:09 | NUR ---
Report given to Gillian. patient to move to east wing while COVID is ruled out.
--- NOTE | 2019-12-07 13:15 | NUR ---
Opening Shift Note Received report on the patient. Awake lying in bed. Patient shows no signs of distress at this time. Discussed the plan of care with the patient. Bed in lowest position, side rails up x2, and the call light is within reach. Will continue to monitor.
[2019-12-07] MEDS: FOLIC ACID 1 MG, MULTIPLE VITAMIN 10 ML, MAGNESIUM SULF SDV 50% 8 MEQ, THIAMINE INJ 100... INJ SCH ×5 (13:22)
--- NOTE | 2019-12-07 16:03 | NUR ---
NUTRITION ASSESSMENT NOTES Please refer to link notes of nutrition screen form filed under the intervention section of the plan of care for further details. Est. Energy Needs: 0119-8751 kcal (25-30 kcal/kg BW). Est. Protein Needs: 59-64 gms/day (1.0-1.1 gms/kg BW). Will continue to monitor pertinent labs and reassess nutrient need prn Addendum: 12/07/19 at [address] Amended: Links added.
[2019-12-07 17:00] VITALS: BP 97/63
--- NOTE | 2019-12-07 21:29 | NUR ---
IV removal IV DC'd due to infiltration with sterile technique, catheter fully intact. Pressure dressing applied to site. Patient tolerated procedure well.
--- NOTE | 2019-12-07 21:30 | NUR ---
IV insertion IV access obtained, via clean sterile technique by inserting 20 gauge catheter at LEFT WRIST after 1 attempt(s). IV secured properly. No trauma to site. Patient tolerated procedure well.
[2019-12-07 22:00] VITALS: BP 102/64
[2019-12-08] MEDS: chlordiazePOXIDE HCL 25 MG CAP PO PRN ×2 (04:15→16:50)
[2019-12-08 05:00] VITALS: BP 129/73
[2019-12-08] MEDS: LORazepam 2MG/ML-1ML VIAL IV PRN ×3 (05:23→22:13)
--- NOTE | 2019-12-08 07:20 | NUR ---
Respiratory note: HR 73, RR 14, SPO2 97% ON RA. BS CLEAR AND DIMINISHED.NO SIGNS OR SYMPTOMS OF RESPIRATORY DISTRESS NOTED AT THIS TIME.
--- NOTE | 2019-12-08 08:00 | NUR ---
Opening Shift Note Assumed care of patient, awake and alert, sitter at bedside. No S/S of distress/SOB or pain, patient shaky and verbalized embarrassment for coming back in, patient educated that we are only here to help and want her to be safe. Instructed on POC and to call for assist PRN, will continue to monitor for changes Q1hr and PRN.
[2019-12-08] MEDS: HALOPERIDOL LACTATE 5 MG/ML INJ VIAL IM PRN (08:18)
[2019-12-08] MEDS: cefTRIAXone 1GM/50ML D5W 50 ML IV SCH (08:19)
[2019-12-08] MEDS: FAMOTIDINE (10MG/ML) 2ML VL IV SCH ×2 (11:42→22:13)
[2019-12-08] MEDS: FOLIC ACID 1 MG, MULTIPLE VITAMIN 10 ML, MAGNESIUM SULF SDV 50% 8 MEQ, THIAMINE INJ 100... INJ SCH ×5 (12:32)
[2019-12-08] MEDS: DOCUSATE SOD 100 MG CAP PO PRN (13:55)
[2019-12-08 20:00] VITALS: BP 113/65
--- NOTE | 2019-12-08 20:05 | NUR ---
OPENING SHIFT NOTE: ASSUMED CARE OF PATIENT. PATIENT IS SLEEPING, NO S/S OF DISTRESS, SOB OR PAIN. RESPIRATIONS ARE EVEN AND UNLABORED. SITTER AT THE BEDSIDE. BED IS LOW, LOCKED, TWO SIDE RAILS RAISED, AND CALL DAVIES IS WITHIN REACH. PATIENT CONNECTED TO TELE BOX #4 AND CURRENT READING IS 73. WILL CONTINUE TO MONITOR Q 1H AND PRN.
[2019-12-08 22:00] VITALS: BP 113/60
--- NOTE | 2019-12-08 22:15 | NUR ---
PATIENT STATES SHE FEELS ANXIOUS AND REQUESTS MEDICATION, ATIVAN 0.5 MG IVP GIVEN. WILL CONTINUE TO MONITOR Q 1HR AND PRN. SITTER AT THE BEDSIDE.
--- NOTE | 2019-12-08 22:40 | NUR ---
Respiratory note: PT SEEN AND ASSESSED AT 2240. PT DOES NOT HAVE ANY RESPIRATORY ORDERS AT THIS TIME. DISPLAYING NO SIGNS OF DISTRESS. HR 67 RR 18 POX 96% ON ROOM AIR.
--- NOTE | 2019-12-09 00:45 | NUR ---
PRIMARY RN ONE ON ONE OBSERVATION WHILE SITTER IS ON LUNCH BREAK. PATIENT IS SLEEPING, NO S/S OF DISTRESS/SOB. RESPIRATIONS ARE EVEN AND UNLABORED.
[2019-12-09 05:00] VITALS: BP 127/74
--- NOTE | 2019-12-09 05:33 | NUR ---
PATIENT STATES SHE IS FEELING ANXIOUS AND IS REQUESTING SOMETHING FOR THE ANXIETY, SHE ALSO SAYS SHE IS SHAKING AND REQUESTS LIBRIUM. PATIENT APPEARS ANXIOUS AND AGITATED, RESPIRATIONS ARE EVEN AND UNLABORED, WILL MEDICATE PRN.
[2019-12-09] MEDS: LORazepam 2MG/ML-1ML VIAL IV PRN (05:39)
[2019-12-09] MEDS: chlordiazePOXIDE HCL 25 MG CAP PO PRN ×3 (05:39→21:27)
--- NOTE | 2019-12-09 05:50 | NUR ---
COVID NEGATIVE. RECEIVED CALL FROM CHARGE NURSE THAT PATIENT IS NEGATIVE FOR COVID.
--- NOTE | 2019-12-09 06:00 | NUR ---
PATIENT TRANSFERRED VIA WHEELCHAIR WITHOUT INCIDENT TO THE CARE OF GEORGETTE ROLDAN. Addendum: 12/09/19 at 0713 by MARISELA SMITH RN RN WRONG TIME. PATIENT TRANSFERRED AT 0630.
--- NOTE | 2019-12-09 06:30 | NUR ---
Continuation Assumed care of patient, awake and alert. Patient transferred to room 209 via wheelchair with all belongings. Patient transferred without incident. No S/S of distress/SOB or pain. Bed in lowest locked position, side rails up x2, call light within reach, sitter at bedside. Instructed on POC and to call for assist PRN, will continue to monitor for changes Q1hr and PRN. Addendum: 12/09/19 at 0809 by GEORGETTE MARSHALL RN RN CORRECTION: Title should read Continuation of Care.
--- NOTE | 2019-12-09 07:36 | NUR ---
Closing Note Patient lying in bed, awake and alert. Bed in lowest locked position, side rails up x2, call light within reach, sitter at bedside. No s/s of distress. Care endorsed to jess Hickman RN.
--- NOTE | 2019-12-09 08:00 | NUR ---
Opening Shift Note Assumed care of patient, awake, alert and oriented X4. No S/S of distress/SOB or pain. Tele removed and returned, patient is now Med/Surg. IV to left antecubital removed per doctors order, catheter intact. Patient awaiting transfer to inpatient behavioral health. Instructed on POC and to call for assist PRN, verbalized understanding. Bed locked, in lowest position, call light within reach, sitter remains at bedside for patient safety, will continue to monitor for changes Q1hr and PRN.
--- NOTE | 2019-12-09 08:32 | NUR ---
Change of shift report given. Will continue to help assist with bed placement and keep the facility updated with any information as it ocurrs.
[2019-12-09 08:55] VITALS: BP 135/89
--- NOTE | 2019-12-09 09:15 | NUR ---
ROUNDS Dr Marylou Gamble at bedside for rounds, plan of care discussed with patient, verbalized understanding.
[2019-12-09 12:41] VITALS: BP 132/86
[2019-12-09] MEDS: HALOPERIDOL LACTATE 5 MG/ML INJ VIAL IM PRN (12:53)
[2019-12-09 16:56] VITALS: BP 137/89
--- NOTE | 2019-12-09 19:30 | NUR ---
Care endorsed to JAMAR Ch, night nurse.
[2019-12-09] MEDS: ACETAMINOPHEN 500 MG TAB PO PRN (19:37)
--- NOTE | 2019-12-09 19:37 | NUR ---
Patient complaining of a headache, 10/08, will medicate with prescribed Tylenol.
--- NOTE | 2019-12-09 19:39 | NUR ---
Opening Shift Note Received report and assumed care of patient. Patient is awake and alert. No signs or symptoms of distress noted. Instructed patient on plan of care and to call for assistance as needed. Will continue to monitor.
[2019-12-10 00:05] VITALS: BP 148/94
[2019-12-10] MEDS: DOCUSATE SOD 100 MG CAP PO PRN ×2 (01:11→09:45)
[2019-12-10] MEDS: HALOPERIDOL LACTATE 5 MG/ML INJ VIAL IM PRN ×3 (01:13→17:57)
[2019-12-10 05:04] VITALS: BP 114/77
--- NOTE | 2019-12-10 08:37 | NUR ---
Purvi Wilkerson. at bedside. ordered to follow up with Final Block Press Operator Marisela regarding the patient's transfer to [facility]. said he talked to the doctor at [facility] that petient has a (-) COVID-[address] Gamble if patient needs to have the 5150 hold renewed. Paged Marisela.
--- NOTE | 2019-12-10 08:50 | NUR ---
Compliance Intern Marisela called back. Marisela said she needs the patient results for COVID-19 and renewed 8520 form be sent via fax ([phone]). Marisela to call [facility] Wilkerson regarding renewal of 5150 form.
--- NOTE | 2019-12-10 09:37 | NUR ---
I called [facility] [phone] and spoke with Dorcas in Intake regarding this patient's COVID-19 test being negative. Per Dorcas they do not have a bed for this patient right now. I let her know that Dr. Purvi Gamble has been communicating with Dr. Patel who has accepted the patient but wanted a COVID-19 test done first. Per Dorcas, I need to send updated clinical information including the COVID-19 result and she will let me know if they are able to accept the patient. I spoke with Dr. Purvi Gamble and made him aware-I also spoke with nurse Medley and requested current 1600 application to be done. Nurse Medley to fax me COVID-19 results so I can fax to [facility].
[2019-12-10] MEDS: chlordiazePOXIDE HCL 25 MG CAP PO PRN ×2 (09:45→17:58)
--- NOTE | 2019-12-10 09:45 | NUR ---
Patient is agitated, with tremors noted. Haldol Inj via IM administered for agitation. Librium PO given for alcohol withdrawal symptoms. Sitter at bedside.
--- NOTE | 2019-12-10 10:32 | NUR ---
I faxed updated clinical information and COVID-[address] [facility].
--- NOTE | 2019-12-10 11:30 | NUR ---
I faxed COVID-19 test result and updated clinical information to [facility]. I spoke with nurse Jasmyne, she said they are waiting for 5150 application to be done.
--- NOTE | 2019-12-10 12:02 | NUR ---
Faxed behavioral health packet (pending 1730 updated application) to [facility], [facility], [facility] and [facility].
--- NOTE | 2019-12-10 12:43 | NUR ---
Fátima from [facility] called back. Fátima said they need only the Tele Psych notes to be faxed to them now, renewed 5150 form will be needed only when the bed is available. Fátima made aware Barrel Cap Setter Marisela will contact them.
--- NOTE | 2019-12-10 12:55 | NUR ---
Fisheries Director Marisela called back. Marisela made aware Fátima from [facility] called back asking for the Tele Psych notes to be sent to them via Fax, [facility] will only asked for the renewed 5150 form when the bed becomes available for the patient.
--- NOTE | 2019-12-10 15:35 | NUR ---
Cinder Dump Crane Operator Marisela called back to send the renewed 4400 hold form to her via . Marisela said [facility] needs a new Tele Psych Consult done.
--- NOTE | 2019-12-10 15:38 | NUR ---
Called Marylou Wilkerson that Recoating Machine Operator Marisela said that [facility] wants another Tele Psych Consult be done.
--- NOTE | 2019-12-10 15:38 | NUR ---
Marylou Wilkerson ordered repeat Tele Psych Consult and when it's done, place the copy of recommendations to the patient's chart.
--- NOTE | 2019-12-10 15:56 | NUR ---
I faxed today's 0713 application to [facility], [facility], [facility], [facility], [facility] and [facility].
--- NOTE | 2019-12-10 17:25 | NUR ---
Attempted to encode the information for the Tele Psych Consult = Demographic Information Conflict Alert! Called the Tele Med. Maintenance Service Technician let me wait on the phone.
--- NOTE | 2019-12-10 17:30 | NUR ---
Called again the [facility] Tele Med ([phone]). System Technologist made aware of the Demographic Information Conflict Alert when I attempted to submit the patient's information for Tele Psych Consult. Charge Nurse Brenda made aware. Brenda said to wait later, if still unable to submit the information, endorse to the editor. Tele Psych monitor is placed in the patient's room.
--- NOTE | 2019-12-10 17:39 | NUR ---
I spoke with nurse Jasmyne and asked her to have nurse fax new tele psych report (when completed) to [facility] [phone]. I called [facility] ([phone]) and spoke with Shama, placed them on will call pending transfer to in-patient psych-I made Jasmyne aware.
--- NOTE | 2019-12-10 17:40 | NUR ---
Market Risk Specialist Marisela called back. Marisela made aware that I attempted to submit the new request for Tele Psych Consult but unsuccessful: Demographic Information Conflict Alert. Charge Nurse Brenda is aware.
--- NOTE | 2019-12-10 19:10 | NUR ---
Opening Shift Note Assumed care of patient, patient asleep at this time. Sitter at bedside. No S/S of distress/SOB or pain. Bed is locked in lowest position with side rails up x2 for safety. Call light is within reach. Will continue to monitor for changes Q1hr and PRN.
--- NOTE | 2019-12-10 20:14 | NUR ---
Received report from Isaias. Will continue to seek placement
--- NOTE | 2019-12-10 21:20 | NUR ---
RECEIVED REPORT FROM JAMAR DOMÍNGUEZ ASSUME CARE OF PT, AWAKE AND ALERT RESTING ON BED WITH SITTER AT BEDSIDE, NO SIGNS OF DISTRESS NOTED AT THIS TIME, WILL CONTINUE TO MONITOR.
[2019-12-10 22:00] VITALS: BP 114/72
--- NOTE | 2019-12-10 22:30 | NUR ---
TELE PSYCH CONSULT REQUESTED.
--- NOTE | 2019-12-11 00:32 | NUR ---
Called the following facilities [facility] and [facility]. Still no beds at any of the facility. Call in the AM for any discharges.
--- NOTE | 2019-12-11 04:52 | NUR ---
called tel# [phone] to follow up report. Addendum: 12/11/19 at 0454 by Yola Babb RN tele psych report.
--- NOTE | 2019-12-11 05:17 | NUR ---
Tele psych consult report faxed to # [phone], [facility].
[2019-12-11 05:22] VITALS: BP 106/67
--- NOTE | 2019-12-11 07:30 | NUR ---
Received patient with no IV access. MD is aware. Sitter at bedside.
--- NOTE | 2019-12-11 07:30 | NUR ---
Patient in bed, asleep, no acute distress noted. Sitter at bedside.
--- NOTE | 2019-12-11 08:34 | NUR ---
Will continue looking for placement
--- NOTE | 2019-12-11 08:34 | NUR ---
New tele psych consult faxed to [facility] intake for review.
[2019-12-11 08:59] VITALS: BP 126/80
--- NOTE | 2019-12-11 09:15 | NUR ---
Purvi Wilkerson. at bedside. read the latest Tele Psych recommendations for [address] Gamble ordered to follow up with History Instructor Marisela Villegas for the patient's transfer to [facility]. [employer] History Instructor Marisela.
--- NOTE | 2019-12-11 09:20 | NUR ---
Manager Games Marisela called back. Marisela made aware of the latest Tele Psych Consult recommendations, and Dr. Gamble ordered to follow up the transfer of patient to [facility]. Marisela said to send the Tele Psych Consult recommendations to her via . Sent the copy of recommendations via Fax to Marisela.
--- NOTE | 2019-12-11 09:45 | NUR ---
Window Shade Cutter Marisela called back that she has not received the Tele Psych Consult results via Fax. Marisela made aware I have sent it two times via Fax. Marisela said to resend it to .
--- NOTE | 2019-12-11 09:48 | NUR ---
Copy of Tele Psych results sent to Medical/Surgery Registered Nurse Marisela via .
--- NOTE | 2019-12-11 10:05 | NUR ---
Charge Nurse Celestine to send the Tele Psych results using another Fax machine in another unit to send to [employer]
[2019-12-11] MEDS: DOCUSATE SOD 100 MG CAP PO PRN (10:26)
[2019-12-11] MEDS: HALOPERIDOL LACTATE 5 MG/ML INJ VIAL IM PRN (10:26)
[2019-12-11] MEDS: chlordiazePOXIDE HCL 25 MG CAP PO PRN (10:26)
--- NOTE | 2019-12-11 10:26 | NUR ---
Haldol 2.5 mg IM given for agitation, Librium 25 mg PO given for alcohol withdrawal symptoms, Colace PO for constipation. Sitter at bedside.
--- NOTE | 2019-12-11 10:49 | NUR ---
3998 packet faxed to [facility], [facility], [facility], and [facility].
--- NOTE | 2019-12-11 10:55 | NUR ---
Received a call back from Joshua from [facility].
--- NOTE | 2019-12-11 11:23 | NUR ---
Acupuncturist Marisela called back. Marisela said patient will be transferred to [facility], admitting MD is Dr. Patel, [facility] ETA at 1400 pm today, call report to [phone].
--- NOTE | 2019-12-11 11:27 | NUR ---
I received a call from Joshua at [facility] letting me know that they are accepting this patient-psychiatrist is Dr. Patel, medical doctor is Dr. Wright. Patient will go to [address], nurse to call report to [phone]. I called [facility] ([phone]) and spoke with Shama-grain picker time to transport to [facility] is 1400-I relayed this information to nurse Jasmyne-I also made Dr. Purvi Gamble aware.
[2019-12-11 12:11] VITALS: BP 126/80
--- NOTE | 2019-12-11 12:15 | NUR ---
Called patient's Nick Luu ([phone]) regarding patient's transfer to [facility] today.
--- NOTE | 2019-12-11 12:48 | NUR ---
Called [facility] ([phone]). Report given to Nurse Marybeth. Patient has no IV access, is aware, 4060 Hold form renewed yesterday, repeat Tele Psych Consult done last night, [facility] ETA at 1400 pm today for patient's transfer to [facility].
[2019-12-11 13:00] VITALS: BP 114/78
--- NOTE | 2019-12-11 14:40 | NUR ---
Pt being transferred to psych facility Order obtained for transfer of MARKEL HAWLEY to [facility]. Report called/given to Nurse Marybeth. Report given to [facility] transport team. Medication reconciliation form completed and copy endorsed to the transport team to give to the behavioral unit. Transported via [facility] along with copied chart and imaging films/disk and all personal belongings. No distress noted on time of departure. Nick Luu notified of destination and room number, verbalized understanding. NOTE: Patient has 5150 hold renewed yesterday. Repeat Tele Psych Consult done yesterday (12/10/2019). No acute distress noted at time of departure.
== END 2019-12-11 14:40 | DRG 917 ==
LOC: ER 15:26 → EDBD 15:26 → TELE 15:27 → TELE-EAST 20:35 → TELE-CENTR 12-03 16:55 → TELE-EAST 12-07 14:49 → TELE-CENTR 12-09 06:33 → CENTRAL 12-09 20:17
PROVIDERS: ADMIT Nurse Practitioner Acute Care; ATTEND Family Medicine
DX: T42.4X2A Poisoning by benzodiazepines, intentional self-harm, initial encounter (principal); G92 Toxic encephalopathy; J18.9 Pneumonia, unspecified organism; F10.239 Alcohol dependence with withdrawal, unspecified; F32.9 Major depressive disorder, single episode, unspecified; F10.20 Alcohol dependence, uncomplicated; J44.9 Chronic obstructive pulmonary disease, unspecified; N18.3 Chronic kidney disease, stage 3 (moderate); F41.9 Anxiety disorder, unspecified; F17.210 Nicotine dependence, cigarettes, uncomplicated; I12.9 Hypertensive chronic kidney disease with stage 1 through stage 4 chronic kidney disease, or unspecified chronic kidney disease; J10.89 Influenza due to other identified influenza virus with other manifestations; Z79.899 Other long term (current) drug therapy; Z80.59 Family history of malignant neoplasm of other urinary tract organ; Y92.89 Other specified places as the place of occurrence of the external cause
CPT/HCPCS: 36415; 71045; 80048; 80053; 80307; 80320; 80329; 81001; 83605; 83735; 84132; 85025; 87040; 87070; 87081; 87804; 87880; 93005; G0378; J0696; J2405; J3490

== ENCOUNTER 2019-12-25 15:17 | Emergency (ER) | payer OTHER, SELFPAY ==
[~2019-12-25] VITALS: Ht 165.1 cm; Wt 59.4 kg
[~2019-12-25 15:17] MED LIST changes: +ARIP2TAB PO; +CLON0.5T3 PO; -CLON1TAB PO; +DIPH25CA66 PO
[2019-12-25 15:30] VITALS: BP 131/83
== END 2019-12-25 16:22 | disposition home or self-care (01) ==
LOC: ER 15:17
DX: F41.9 Anxiety disorder, unspecified (principal)

== ENCOUNTER → 2020-01-03 | Emergency (ER) | payer OTHER ==
[~2020-01-03] VITALS: Ht 165.1 cm; Wt 59.4 kg
[2020-01-03 05:33] VITALS: BP 164/101
== END | disposition home or self-care (01) ==
LOC: ER 05:16
DX: H61.21 Impacted cerumen, right ear (principal); H92.01 Otalgia, right ear; F17.210 Nicotine dependence, cigarettes, uncomplicated; J44.9 Chronic obstructive pulmonary disease, unspecified; I10 Essential (primary) hypertension; Z79.899 Other long term (current) drug therapy; Z88.8 Allergy status to other drugs, medicaments and biological substances
CPT/HCPCS: 69209

== ENCOUNTER 2020-01-06 06:14 | Emergency (ER) | payer OTHER ==
[~2020-01-06] VITALS: Ht 165.1 cm; Wt 61.2 kg
[2020-01-06 06:37] VITALS: BP 117/77
== END 2020-01-06 07:53 | disposition home or self-care (01) ==
LOC: ER 06:14
DX: H60.501 Unspecified acute noninfective otitis externa, right ear (principal); F17.210 Nicotine dependence, cigarettes, uncomplicated

== ENCOUNTER → 2020-01-11 | Emergency (ER) | payer OTHER ==
[~2020-01-11] VITALS: Ht 165.1 cm; Wt 58.5 kg
[2020-01-11 07:25] LABS: Basophils # (auto) 0.1 10 ^3/uL (0-0.2); Eosinophils # (auto) 0 10 ^3/uL (0-0.8); Eosinophils % (auto) 0.6 % (0.0-7.0); Hematocrit 43.5 % (36.0-46.0); Hemoglobin 14.7 g/dL (12.2-16.2); Lymphocytes # (auto) 2.2 10 ^3/uL (0.4-5.4); Lymphocytes % (auto) 32.7 % (10.0-50.0); Mean Corpuscular Hgb Conc. 33.7 g/dL (32.0-36.0); Mean Corpuscular Volume 91.8 fL (80.0-100.0); Monocytes # (auto) 0.4 10 ^3/uL (0-1.3); Monocytes % (auto) 5.3 % (0.0-12.0); Neutrophils % (auto) 60.4 % (37.0-80.0); Nucleated Red Blood Cells % 0.2 %; Platelet Count (auto) 211 10^3/uL (140-450); Red Blood Cells 4.74 10^6/uL (4.0-5.20); Red Cell Distribution Width 13.7 % (11.8-14.3); White Blood Cell 6.7 10^3/uL (4.4-10.8)
[2020-01-11 07:41] LABS: Albumin 3.6 g/dL (3.4-5.0); Anion Gap 3 (5-15); Blood Urea Nitrogen 12 mg/dL (7-18); Calcium 8.7 mg/dL (8.5-10.1); Carbon Dioxide 27 mmol/L (21-32); Chloride 110 mmol/L (98-107); Glucose 91 mg/dL (74-106); Potassium 4.1 mmol/L (3.5-5.1); Sodium 140 mmol/L (136-145)
[2020-01-11 07:46] LABS: Alanine Aminotransferase 19 U/L (13-56); Alkaline Phosphatase 56 U/L (45-117); Aspartate Aminotransferase 16 U/L (15-37); BUN/Creatinine Ratio 13.8; Bilirubin, Total 0.2 mg/dL (0.2-1.0); GFR African American 84 mL/min; GFR Non-African American 69 mL/min; Total Protein 7.1 g/dL (6.4-8.2)
[2020-01-11 08:41] LABS: Urine Bacteria NONE SEEN /hpf (None Seen); Urine Blood Negative /uL (Negative); Urine Specific Gravity 1.002 (1.001-1.035); Urine WBC 1 /hpf (0 - 5)
[2020-01-11 08:56] LABS: Alcohol, Urine < 3.0 mg/dL (0-5); Amphetamine Screen, Urine NEGATIVE (NEGATIVE); Barbiturate Scree,Urine NEGATIVE (NEGATIVE); Benzodiazephine Screen, Urine NEGATIVE (NEGATIVE); Cannabinoid Screen, Urine NEGATIVE (NEGATIVE); Cocaine Screen, Urine NEGATIVE (NEGATIVE); Opiate Scree,Urine NEGATIVE (NEGATIVE); Phencyclidine Screen, Urine NEGATIVE (NEGATIVE)
[2020-01-11 09:00] VITALS: BP 122/77
== END | disposition home or self-care (01) ==
LOC: ER 06:43
DX: F41.9 Anxiety disorder, unspecified (principal); N39.0 Urinary tract infection, site not specified; Z79.899 Other long term (current) drug therapy; Z88.8 Allergy status to other drugs, medicaments and biological substances
CPT/HCPCS: 36415; 80053; 80307; 81001; 84484; 85025

== ENCOUNTER → 2020-01-21 | Emergency (ER) | payer OTHER ==
[~2020-01-21] VITALS: Ht 165.1 cm; Wt 56.7 kg
[~2020-01-21] MED LIST changes: +LORazepam 0.5 MG TAB PO ONE; +cloNIDine HCL 0.1 MG TAB PO ONE
[2020-01-21 06:59] LABS: Basophils # (auto) 0.1 10 ^3/uL (0-0.2); Basophils % (auto) 1.2 % (0.0-2.0); Eosinophils # (auto) 0.1 10 ^3/uL (0-0.8); Eosinophils % (auto) 1.1 % (0.0-7.0); Hematocrit 42.7 % (36.0-46.0); Hemoglobin 14.4 g/dL (12.2-16.2); Lymphocytes % (auto) 38.8 % (10.0-50.0); Mean Corpuscular Hemoglobin 30.8 pg (28.0-32.0); Mean Corpuscular Hgb Conc. 33.6 g/dL (32.0-36.0); Mean Corpuscular Volume 91.7 fL (80.0-100.0); Monocytes # (auto) 0.4 10 ^3/uL (0-1.3); Monocytes % (auto) 6.9 % (0.0-12.0); Neutrophils # (auto) 2.7 10 ^3/uL (1.6-8.6); Nucleated Red Blood Cells % 0.1 %; Platelet Count (auto) 167 10^3/uL (140-450); Red Blood Cells 4.66 10^6/uL (4.0-5.20); Red Cell Distribution Width 13.6 % (11.8-14.3); White Blood Cell 5.1 10^3/uL (4.4-10.8)
[2020-01-21 07:17] VITALS: BP 142/83
[2020-01-21 07:24] LABS: Albumin 3.5 g/dL (3.4-5.0); Calcium 8.8 mg/dL (8.5-10.1); Potassium 4.7 mmol/L (3.5-5.1)
[2020-01-21 07:27] LABS: BUN/Creatinine Ratio 17.9; Bilirubin, Total 0.3 mg/dL (0.2-1.0); Total Protein 6.9 g/dL (6.4-8.2)
== END | disposition home or self-care (01) ==
LOC: ER 05:40
DX: H92.01 Otalgia, right ear (principal); F41.9 Anxiety disorder, unspecified; I10 Essential (primary) hypertension; J44.9 Chronic obstructive pulmonary disease, unspecified; F17.210 Nicotine dependence, cigarettes, uncomplicated; F32.9 Major depressive disorder, single episode, unspecified; Z79.899 Other long term (current) drug therapy; Z88.8 Allergy status to other drugs, medicaments and biological substances
CPT/HCPCS: 36415; 71045; 80053; 85025

== ENCOUNTER → 2020-01-24 | Outpatient (CLI) | payer OTHER ==
[~2020-01-24] MED LIST changes: -LORazepam 0.5 MG TAB PO ONE; -cloNIDine HCL 0.1 MG TAB PO ONE
[2020-01-24 11:00] LABS: Basophils # (auto) 0 10 ^3/uL (0-0.2); Basophils % (auto) 0.5 % (0.0-2.0); Eosinophils # (auto) 0 10 ^3/uL (0-0.8); Eosinophils % (auto) 0.6 % (0.0-7.0); Hematocrit 44.6 % (36.0-46.0); Hemoglobin 14.8 g/dL (12.2-16.2); Lymphocytes # (auto) 2.1 10 ^3/uL (0.4-5.4); Lymphocytes % (auto) 27.5 % (10.0-50.0); Mean Corpuscular Hemoglobin 30.4 pg (28.0-32.0); Mean Corpuscular Hgb Conc. 33.2 g/dL (32.0-36.0); Mean Corpuscular Volume 91.8 fL (80.0-100.0); Monocytes # (auto) 0.4 10 ^3/uL (0-1.3); Monocytes % (auto) 4.8 % (0.0-12.0); Neutrophils # (auto) 5.2 10 ^3/uL (1.6-8.6); Neutrophils % (auto) 66.6 % (37.0-80.0); Platelet Count (auto) 220 10^3/uL (140-450); Red Blood Cells 4.86 10^6/uL (4.0-5.20); Red Cell Distribution Width 13.9 % (11.8-14.3); White Blood Cell 7.8 10^3/uL (4.4-10.8)
[2020-01-24 11:05] LABS: Urine Bacteria NONE SEEN /hpf (None Seen); Urine Blood Negative /uL (Negative); Urine Specific Gravity 1.004 (1.001-1.035); Urine WBC 1 /hpf (0 - 5)
[2020-01-24 11:52] LABS: Albumin 3.7 g/dL (3.4-5.0); Calcium 8.7 mg/dL (8.5-10.1); Potassium 4.6 mmol/L (3.5-5.1)
[2020-01-24 11:59] LABS: BUN/Creatinine Ratio 22.6; Bilirubin, Total 0.4 mg/dL (0.2-1.0); Total Protein 7.1 g/dL (6.4-8.2)
== END | disposition home or self-care (01) ==
LOC: LAB 10:40
PROVIDERS: ATTEND Nurse Practitioner
DX: E78.5 Hyperlipidemia, unspecified (principal); I10 Essential (primary) hypertension
CPT/HCPCS: 36415; 80053; 80061; 81001; 84443; 85025

== ENCOUNTER → 2020-03-03 | Outpatient (CLI) | payer OTHER ==
[~2020-03-03] MED LIST changes: +AMIO200T4 PO; +ASPI-231 PO; +BUSP15TA60 PO; +DIGO0.1238 PO; +GABA100C9 PO; +LISI-648 PO; +MULT-777 PO; +SERT-274 PO
== END | disposition home or self-care (01) ==
LOC: LAB 17:26
PROVIDERS: ATTEND Urology
DX: N39.0 Urinary tract infection, site not specified (principal)
CPT/HCPCS: 87086

== ENCOUNTER 2020-03-10 05:02 | Emergency (ER) | payer OTHER ==
[~2020-03-10] VITALS: Ht 167.6 cm; Wt 61.2 kg
[~2020-03-10 05:02] MED LIST changes: -AMIO200T4 PO; -ASPI-231 PO; -BUSP15TA60 PO; -DIGO0.1238 PO; -GABA100C9 PO; -LISI-648 PO; -MULT-777 PO; -SERT-274 PO
[2020-03-10 05:32] VITALS: BP 110/78
== END 2020-03-10 06:15 | disposition left against medical advice (07) ==
LOC: ER 05:02
DX: F41.9 Anxiety disorder, unspecified (principal); Z53.21 Procedure and treatment not carried out due to patient leaving prior to being seen by health care provider

== ENCOUNTER 2020-04-06 13:49 | Emergency (ER) | payer OTHER ==
[~2020-04-06] VITALS: Ht 167.6 cm; Wt 74.8 kg
[2020-04-06 16:20] VITALS: BP 81/61
[2020-04-06] MEDS ORDERED: KETOROLAC TROMETH 60MG/2ML VIAL IM ONE (17:00)
== END 2020-04-06 17:28 | disposition home or self-care (01) ==
LOC: ER 13:49
DX: R07.81 Pleurodynia (principal); I10 Essential (primary) hypertension; J44.9 Chronic obstructive pulmonary disease, unspecified; Z79.899 Other long term (current) drug therapy
CPT/HCPCS: 71101; 96372; 99283; J1885

== ENCOUNTER 2020-04-25 05:41 | Inpatient (IN) | payer OTHER ==
[~2020-04-25] VITALS: Ht 170.2 cm; Wt 63.7 kg
[2020-04-25] MEDS ORDERED: SODIUM CHLORIDE 0.9% 1,000 ML IV ONE ×2 (07:04)
[2020-04-25] MEDS ORDERED: NALOXONE HCL 0.4 MG/ML VIAL IV ONE (07:15)
[2020-04-25] MEDS ORDERED: cefTRIAXone 1GM/50ML D5W 50 ML IV ONE (07:15)
[2020-04-25 07:23] LABS: Urine Bacteria NONE SEEN /hpf (None Seen); Urine Blood 2+ /uL (Negative); Urine Hyaline Cast FEW /lpf (0 - 2); Urine Specific Gravity 1.019 (1.001-1.035); Urine WBC 1 /hpf (0 - 5)
[2020-04-25 07:37] LABS: Amphetamine Screen, Urine NEGATIVE (NEGATIVE); Barbiturate Scree,Urine NEGATIVE (NEGATIVE); Benzodiazephine Screen, Urine NEGATIVE (NEGATIVE); Cannabinoid Screen, Urine NEGATIVE (NEGATIVE); Cocaine Screen, Urine NEGATIVE (NEGATIVE); Opiate Scree,Urine NEGATIVE (NEGATIVE); Phencyclidine Screen, Urine NEGATIVE (NEGATIVE)
[2020-04-25] MEDS ORDERED: ONDANSETRON HCL 4 MG/2 ML VIAL ONE ×2 (08:00→14:01)
[2020-04-25 08:27] LABS: Basophils # (auto) 0.1 10 ^3/uL (0-0.2); Basophils % (auto) 0.7 % (0.0-2.0); Eosinophils # (auto) 0 10 ^3/uL (0-0.8); Hematocrit 38.8 % (36.0-46.0); Hemoglobin 13.2 g/dL (12.2-16.2); Lymphocytes # (auto) 0.8 10 ^3/uL (0.4-5.4); Lymphocytes % (auto) 8.9 % (10.0-50.0); Mean Corpuscular Volume 94.1 fL (80.0-100.0); Monocytes # (auto) 0.2 10 ^3/uL (0-1.3); Monocytes % (auto) 2.8 % (0.0-12.0); Neutrophils # (auto) 7.9 10 ^3/uL (1.6-8.6); Neutrophils % (auto) 87.6 % (37.0-80.0); Nucleated Red Blood Cells % 0.4 %; Platelet Count (auto) 125 10^3/uL (140-450); Red Blood Cells 4.12 10^6/uL (4.0-5.20); Red Cell Distribution Width 16.4 % (11.8-14.3)
[2020-04-25 08:44] LABS: Albumin 3.9 g/dL (3.4-5.0); Calcium 7.6 mg/dL (8.5-10.1); Potassium 4.1 mmol/L (3.5-5.1)
[2020-04-25 08:47] LABS: BUN/Creatinine Ratio 37.8
[2020-04-25 08:50] LABS: Lactic Acid w/Reflex 3.4 mmol/L (0.4-2.0); Total Protein 7.2 g/dL (6.4-8.2)
[2020-04-25] MEDS ORDERED: METOPROLOL TARTRATE 1MG/1ML-5ML VIAL IV ONE (09:57)
[2020-04-25] MEDS ORDERED: AMIODARONE 450mg/250ml AE 250 ML IV SCH (10:27)
[2020-04-25] MEDS ORDERED: chlordiazePOXIDE HCL 5 MG CAP PO ONE (10:30)
[2020-04-25] MEDS ORDERED: AMIODARONE HCL 150 MG in D5W 5% 100 ML IV ONE (10:30)
[2020-04-25] MEDS ORDERED: AMIODARONE HCL (50 MG/ ML) 3 ML VIAL IV ONE (10:34)
[2020-04-25 12:28] LABS: Cholesterol 165 mg/dL (< 200); HDL Cholesterol 56 mg/dL (40-59); LDL Cholesterol 91 mg/dL (< 100); Triglycerides 80 mg/dL (< 150)
[2020-04-25 12:30] LABS: INR 1.09 (0.9-1.15); Partial Thromboplastin Time 23.1 sec (23.0-31.2)
[2020-04-25 12:56] LABS: Magnesium 2.6 mg/dL (1.6-2.6)
[2020-04-25] MEDS ORDERED: ATROPINE SULF 1 MG/10ml SYR ONE (13:37)
[2020-04-25] MEDS ORDERED: fentaNYL CITRATE 100 MCG/2 ML VL ONE ×2 (13:37→14:42)
[2020-04-25] MEDS ORDERED: ANGIOMAX 250 MG VIAL IV ONE (13:37)
[2020-04-25] MEDS ORDERED: LIDOCAINE 2%HCL (LOCAL ANESTH.) INJ 20ML MDV ONE ×2 (13:38→14:40)
[2020-04-25] MEDS ORDERED: IOHEXOL 350 MG/ML 100ML IJ ONE (13:38)
[2020-04-25] MEDS ORDERED: MIDAZOLAM HCL 1MG/1ML-2 ML VIAL ONE ×2 (13:38→14:42)
[2020-04-25] MEDS ORDERED: SODIUM CHL 0.9% 0 ML ONE (13:38)
[2020-04-25] MEDS ORDERED: EPINEPHrine HCL 1 MG/10 ML SYRG ONE (13:56)
[2020-04-25] MEDS ORDERED: VANCOMYCIN 1GM/250ML 250 ML IV ONE (14:40)
[2020-04-25] MEDS ORDERED: VANCOMYCIN HCL 1000 MG VL ONE (14:40)
[2020-04-25] MEDS ORDERED: diphenhdrAMINE HCL 50 MG/1 ML VL ONE (14:54)
[2020-04-25] MEDS ORDERED: NITROGLYCERIN 0.4 MG SL TAB SL PRN (15:15)
[2020-04-25] MEDS ORDERED: MORPHINE SULF INJ 2 MG/ML SYRINGE 1ML IV PRN (15:15)
[2020-04-25] MEDS ORDERED: ACETAMINOPHEN 325 MG TAB PO PRN (16:00)
--- NOTE | 2020-04-25 18:04 | NUR ---
MED REC UNABLE TO OBTAIN MED REC AT THIS TIME. PATIENT UNAWARE OF HOME MEDS. NOT SURE AT THIS TIME. WILL ENDORSE TO PRIMARY RN.
[2020-04-25] MEDS: MORPHINE SULF INJ 2 MG/ML SYRINGE 1ML IV PRN (18:31)
--- NOTE | 2020-04-25 19:30 | NUR ---
ASSUMED CARE, PT. AWAKE, ORIENTED X2, MUMBLES WORDS, DRESSING ON RT. GROIN WITH OLD BLOOD STAIN, REPOSITION PT. NO C/O PAIN, NOT IN DISTRESS.
[2020-04-25] MEDS: METOPROLOL TARTRATE 25 MG TAB PO SCH (21:22)
[2020-04-25 21:55] VITALS: BP 157/92
--- NOTE | 2020-04-25 22:06 | NUR ---
PT. VERY CONFUSED TRYING TO GET UP ON BED, PUT BACK PT. TO BED, TO KEEP MONITOR, PAGED HOSPITALIST, WAITING TO CALL BACK.
--- NOTE | 2020-04-25 22:36 | NUR ---
PT. TRANSFERRED TO RM. 290, NEAR NURSES STATION, TO KEEP MONITOR.
[2020-04-25] MEDS: LORazepam 0.5 MG TAB PO PRN (23:52)
[2020-04-26 05:00] VITALS: BP 152/82
--- NOTE | 2020-04-26 06:04 | NUR ---
v/s stable, no anxiety at the time, sitter at bedside, behavior appropriate, no sob.
[2020-04-26 06:31] LABS: Basophils # (auto) 0 10 ^3/uL (0-0.2); Basophils % (auto) 0.4 % (0.0-2.0); Eosinophils # (auto) 0 10 ^3/uL (0-0.8); Eosinophils % (auto) 0.1 % (0.0-7.0); Hematocrit 34.6 % (36.0-46.0); Hemoglobin 12.3 g/dL (12.2-16.2); Lymphocytes # (auto) 1.1 10 ^3/uL (0.4-5.4); Lymphocytes % (auto) 11.8 % (10.0-50.0); Mean Corpuscular Hemoglobin 32.6 pg (28.0-32.0); Mean Corpuscular Hgb Conc. 35.7 g/dL (32.0-36.0); Mean Corpuscular Volume 91.5 fL (80.0-100.0); Monocytes # (auto) 0.3 10 ^3/uL (0-1.3); Monocytes % (auto) 3.8 % (0.0-12.0); Neutrophils # (auto) 7.5 10 ^3/uL (1.6-8.6); Neutrophils % (auto) 83.9 % (37.0-80.0); Nucleated Red Blood Cells % 0.4 %; Platelet Count (auto) 88 10^3/uL (140-450); Red Blood Cells 3.78 10^6/uL (4.0-5.20); Red Cell Distribution Width 15.7 % (11.8-14.3)
[2020-04-26 06:53] LABS: Potassium 3.7 mmol/L (3.5-5.1)
[2020-04-26 07:06] LABS: Albumin 3.5 g/dL (3.4-5.0); BUN/Creatinine Ratio 31.2; Bilirubin, Total 1.3 mg/dL (0.2-1.0); Calcium 7.4 mg/dL (8.5-10.1); Total Protein 6.5 g/dL (6.4-8.2)
--- NOTE | 2020-04-26 07:30 | NUR ---
Opening Shift Note Assumed care of patient, awake and alert. No S/S of distress/SOB or pain. Instructed on POC and to call for assist PRN, will continue to monitor for changes Q1hr and PRN. Bed is locked and in lowest position. Call light within reach. Sitter at bedside for safety.
[2020-04-26 08:39] VITALS: BP 139/80
[2020-04-26] MEDS: LORazepam 0.5 MG TAB PO PRN (10:10)
[2020-04-26] MEDS: PANTOPRAZOLE 40 MG/10 ML VIAL INJ IV SCH (10:10)
[2020-04-26] MEDS: METOPROLOL TARTRATE 25 MG TAB PO SCH (10:11)
[2020-04-26] MEDS: DIGOXIN 0.125 MG TAB PO SCH (10:11)
[2020-04-26] MEDS: AMIODARONE HCL 200 MG TAB PO SCH (10:12)
--- NOTE | 2020-04-26 11:00 | NUR ---
WOUND CARE NOTE: IN TO SEE PATIENT AT THIS TIME PER WOUND CARE CONSULT REQUEST. [facility] DIAGNOSIS OF BRADYCARDIA. SHE WAS NOTED UPON ADMIT TO HAVE RASH TO BILATERAL BUTTOCKS. WOUND PHOTO TAKEN AT THAT TIME FOR REFERENCE, WOUND CONSULT ORDERED. PATIENT IS AWAKE, ALERT, CONFUSED-SITTER AT BEDSIDE. SHE IS NOTED TO HAVE WHAT APPEARS TO BE AN INTERTRIGINOUS RASH WITH MASD TO BILATERAL BUTTOCKS. SKIN IS INTACT BRIGHT RED RASH. PATIENT DENIES ANY URTICARIA. CURRENT HUMBERTO SCORE IS 16. PATIENT ABLE TO SELF TURN/REPOSITION SELF, BUT IS MAX ASSIST D/T HER CONFUSION. RECOMMEND: BID/PRN APPLICATION WITH ANTIFUNGAL CLEAR OINTMENT, SKIN/WOUND CARE PLAN, CONTINUED MONITORING BY WOUND CARE TEAM. Addendum: 04/26/20 at 1451 by Heaven Aguilar RN Amended: Links added.
[2020-04-26] MEDS ORDERED: BUSP15TA60 PO (12:11)
[2020-04-26] MEDS ORDERED: GABA100C9 PO ×2 (12:11)
[2020-04-26] MEDS ORDERED: SERT-274 PO ×2 (12:11)
[2020-04-26 12:15] VITALS: BP 145/83
[2020-04-26] MEDS: FOLIC ACID 1 MG, MULTIPLE VITAMIN 10 ML, MAGNESIUM SULF SDV 50% 8 MEQ, THIAMINE INJ 100... INJ SCH ×5 (15:50)
[2020-04-26 16:48] VITALS: BP 144/83
[2020-04-26] MEDS: MORPHINE SULF INJ 2 MG/ML SYRINGE 1ML IV PRN (17:09)
[2020-04-26] MEDS: GABAPENTIN 100 MG CAP PO SCH ×2 (18:48→21:57)
--- NOTE | 2020-04-26 19:25 | NUR ---
Opening Shift Note Received report from eliceo Webb RN. Assumed care of patient resting in bed with eyes closed. Sling to left arm in place. Sitter at bedside. No S/S of distress/SOB or pain. On 2LNC saturating at 96%. Instructed on POC and to call for assist PRN, will continue to monitor for changes Q1hr and PRN.
--- NOTE | 2020-04-26 21:30 | NUR ---
Dr Reid at bedside
[2020-04-26] MEDS: APIXABAN 2.5 MG TAB PO SCH (21:56)
[2020-04-26 22:00] VITALS: BP 160/92
[2020-04-26] MEDS ORDERED: METOPROLOL TARTRATE 25 MG TAB PO SCH (22:00)
[2020-04-27 04:49] VITALS: BP 157/92
--- NOTE | 2020-04-27 05:20 | NUR ---
ROUNDS PATIENT IS RESTING IN BED WITH EYES CLOSED, NO DISTRESS NOTED, SATURATING AT 98% ON 2LNC AND PATIENT DENIES PAIN.
[2020-04-27 05:39] LABS: Basophils # (auto) 0 10 ^3/uL (0-0.2); Basophils % (auto) 0.2 % (0.0-2.0); Eosinophils # (auto) 0 10 ^3/uL (0-0.8); Eosinophils % (auto) 0.2 % (0.0-7.0); Hematocrit 35.9 % (36.0-46.0); Hemoglobin 12.5 g/dL (12.2-16.2); Lymphocytes # (auto) 1.3 10 ^3/uL (0.4-5.4); Lymphocytes % (auto) 18.5 % (10.0-50.0); Mean Corpuscular Hemoglobin 32.4 pg (28.0-32.0); Mean Corpuscular Hgb Conc. 34.9 g/dL (32.0-36.0); Mean Corpuscular Volume 92.8 fL (80.0-100.0); Monocytes # (auto) 0.2 10 ^3/uL (0-1.3); Monocytes % (auto) 2.6 % (0.0-12.0); Neutrophils # (auto) 5.6 10 ^3/uL (1.6-8.6); Neutrophils % (auto) 78.5 % (37.0-80.0); Nucleated Red Blood Cells % 0.1 %; Platelet Count (auto) 73 10^3/uL (140-450); Red Blood Cells 3.87 10^6/uL (4.0-5.20); Red Cell Distribution Width 15.1 % (11.8-14.3); White Blood Cell 7.1 10^3/uL (4.4-10.8)
[2020-04-27] MEDS: GABAPENTIN 100 MG CAP PO SCH ×4 (05:43→21:12)
[2020-04-27 05:55] LABS: Potassium 3.3 mmol/L (3.5-5.1)
[2020-04-27 06:07] LABS: BUN/Creatinine Ratio 32.8; Bilirubin, Total 0.8 mg/dL (0.2-1.0); Calcium 7.5 mg/dL (8.5-10.1); Total Protein 6.1 g/dL (6.4-8.2)
--- NOTE | 2020-04-27 07:30 | NUR ---
Opening Shift Note Assumed care of patient, awake and alert. No S/S of distress/SOB or pain. Sitter at bedside for safety. Instructed on POC and to call for assist PRN, will continue to monitor for changes Q1hr and PRN. Bed is locked and in lowest position. Call light within reach.
[2020-04-27 09:03] VITALS: BP 156/95
[2020-04-27] MEDS: DIGOXIN 0.125 MG TAB PO SCH (09:31)
[2020-04-27] MEDS: PANTOPRAZOLE 40 MG/10 ML VIAL INJ IV SCH (09:31)
[2020-04-27] MEDS: APIXABAN 2.5 MG TAB PO SCH ×2 (09:31→21:08)
[2020-04-27] MEDS: SERTRALINE HCL 50 MG TAB PO SCH (09:31)
[2020-04-27] MEDS: AMIODARONE HCL 200 MG TAB PO SCH (09:31)
[2020-04-27] MEDS: METOPROLOL TARTRATE 50 MG TAB PO SCH ×2 (09:32→21:09)
--- NOTE | 2020-04-27 10:20 | NUR ---
TELE PSYCH CONSULTATION CALLED IN. TELEMONITOR #[id number] PUT IN PATIENTS ROOM. WILL AWAIT TELE PSYCH CONSULTATION.
[2020-04-27] MEDS: MORPHINE SULF INJ 2 MG/ML SYRINGE 1ML IV PRN ×2 (11:25→17:15)
[2020-04-27] MEDS: FOLIC ACID 1 MG, MULTIPLE VITAMIN 10 ML, MAGNESIUM SULF SDV 50% 8 MEQ, THIAMINE INJ 100... INJ SCH ×5 (11:55)
--- NOTE | 2020-04-27 11:58 | NUR ---
EEG-UNABLE TO COMPLETE ELECTROENCEPHALOGRAM, PT RESTLESS W/ BACK PAIN CAUSING TOO MANY ARTIFACTS. WILL ATTEMPT AGAIN TOMORROW ON 04/28/2020.
[2020-04-27] MEDS ORDERED: POTASSIUM EFFERVESENT TAB 25 MEQ PO ONE (12:15)
[2020-04-27 13:00] VITALS: BP 131/76
[2020-04-27 16:40] VITALS: BP 153/88
[2020-04-27] MEDS: Ensure HIGH Protein Chocolate 8oz Bottle PO SCH (18:27)
--- NOTE | 2020-04-27 19:30 | NUR ---
Opening Shift Note Received report from eliceo Webb RN. Assumed care of patient resting in bed awake and alert. Sling to left arm in place. Sitter at bedside. No S/S of distress/SOB or pain. On 2LNC saturating at 96%. Instructed on POC and to call for assist PRN, will continue to monitor for changes Q1hr and PRN.
[2020-04-27] MEDS: chlordiazePOXIDE HCL 25 MG CAP PO PRN (21:08)
[2020-04-27 22:00] VITALS: BP 151/98
--- NOTE | 2020-04-27 22:00 | NUR ---
ROUNDS Patient just finished talking to her on the phone. Patient states she is worried about her DUI hearing on Tuesday. Patient is resting in bed, no distress noted and patient denies pain.
[2020-04-28 05:00] VITALS: BP 150/85
[2020-04-28] MEDS: GABAPENTIN 100 MG CAP PO SCH ×4 (05:53→21:54)
[2020-04-28 05:58] LABS: Basophils # (auto) 0 10 ^3/uL (0-0.2); Basophils % (auto) 0.5 % (0.0-2.0); Eosinophils # (auto) 0 10 ^3/uL (0-0.8); Eosinophils % (auto) 0.4 % (0.0-7.0); Hematocrit 37.5 % (36.0-46.0); Hemoglobin 12.9 g/dL (12.2-16.2); Lymphocytes # (auto) 1.5 10 ^3/uL (0.4-5.4); Mean Corpuscular Hemoglobin 31.8 pg (28.0-32.0); Mean Corpuscular Hgb Conc. 34.3 g/dL (32.0-36.0); Mean Corpuscular Volume 92.5 fL (80.0-100.0); Monocytes # (auto) 0.3 10 ^3/uL (0-1.3); Monocytes % (auto) 4.5 % (0.0-12.0); Neutrophils # (auto) 5.4 10 ^3/uL (1.6-8.6); Neutrophils % (auto) 73.6 % (37.0-80.0); Nucleated Red Blood Cells % 0.1 %; Platelet Count (auto) 97 10^3/uL (140-450); Red Blood Cells 4.05 10^6/uL (4.0-5.20); Red Cell Distribution Width 15.2 % (11.8-14.3); White Blood Cell 7.3 10^3/uL (4.4-10.8)
--- NOTE | 2020-04-28 06:07 | NUR ---
Patient is resting in bed with eyes closed, no distress noted and patient denies pain. Sitter at bedside. No climbing out of bed or anxiety noted this shift.
[2020-04-28 06:14] LABS: BUN/Creatinine Ratio 28.1; Calcium 8.4 mg/dL (8.5-10.1); Potassium 3.2 mmol/L (3.5-5.1)
[2020-04-28] MEDS: MORPHINE SULF INJ 2 MG/ML SYRINGE 1ML IV PRN ×2 (06:46→17:59)
[2020-04-28 07:00] VITALS: BP 149/79
--- NOTE | 2020-04-28 07:30 | NUR ---
Opening Shift Note Assumed care of patient, awake and alert. No S/S of distress/SOB or pain. Sitter at bedside for safety precautions. Instructed on POC and to call for assist PRN, will continue to monitor for changes Q1hr and PRN. Bed is locked and in lowest position. Call light within reach.
[2020-04-28] MEDS: AMIODARONE HCL 200 MG TAB PO SCH (10:06)
[2020-04-28] MEDS: SERTRALINE HCL 50 MG TAB PO SCH (10:06)
[2020-04-28] MEDS: APIXABAN 2.5 MG TAB PO SCH ×2 (10:06→21:53)
[2020-04-28] MEDS: METOPROLOL TARTRATE 50 MG TAB PO SCH ×2 (10:06→21:54)
[2020-04-28] MEDS: PANTOPRAZOLE 40 MG/10 ML VIAL INJ IV SCH ×2 (10:06→21:53)
[2020-04-28] MEDS: DIGOXIN 0.125 MG TAB PO SCH (10:07)
[2020-04-28] MEDS: Ensure HIGH Protein Chocolate 8oz Bottle PO SCH ×3 (10:07→17:59)
--- NOTE | 2020-04-28 10:30 | NUR ---
Pt refused PT tx. She was educated regarding the risks of inactivity and benefits of therapeutic activities. Pt reiterated her refusal following education. Addendum: 04/28/20 at 1456 by Sung Aviles TEXTILE BROKER Amended: Links added.
[2020-04-28] MEDS ORDERED: POTASSIUM EFFERVESENT TAB 25 MEQ PO ONE (12:00)
[2020-04-28 12:21] LABS: Amylase 112 U/L (25-115)
[2020-04-28 12:29] LABS: Lipase 2720 U/L (73-393)
[2020-04-28] MEDS: FOLIC ACID 1 MG, MULTIPLE VITAMIN 10 ML, MAGNESIUM SULF SDV 50% 8 MEQ, THIAMINE INJ 100... INJ SCH ×5 (13:15)
--- NOTE | 2020-04-28 15:31 | NUR ---
EEG-UNABLE TO COMPLETE ELECTROENCEPHALOGRAM, PT RESTLESS AND STATED THAT SHE HAD ABD AND BACK PAIN.
--- NOTE | 2020-04-28 15:55 | NUR ---
assessment Patient is a 65 year old female who is alert and oriented. Patients cognitive abilities are intact. Prior to admission patient lived home with her Nick and functioned independently. Patient informed me she was able to care for her own ADLs. Patients PCP is Clifton TARANGO. Patient had a pace make yesterday. Patient has a fww and a cane for home use. Patient is still drinking. I have provided patient with inpatient and out patient ETOH facilities including . I informed patient I will continue to monitor and follow up as appropriate. I informed patient she has a right to speak to a social work case manager regarding all care. I informed patient she has a right to participate in any and all discharge planning. Patient does not have a POA and advanced directive. I have offered patient information on POA and advanced directives. I informed the patient the advantages and benefits of having an Advanced Directive. Patient verbalized understanding and agreed to discharge plan home. Addendum: 04/28/20 at 1558 by Dona BAEZA Amended: Links added.
[2020-04-28 17:00] VITALS: BP 161/108
[2020-04-28] MEDS: SUCRALFATE 1 GM/10 ML ORAL SUSP PO SCH ×2 (17:59→21:53)
--- NOTE | 2020-04-28 20:00 | NUR ---
Opening Shift Note Assumed care of patient. Awake, alert and oriented to self and place only. Periods of confusion. Sitter is at bedside for safety. No S/S of distress/SOB or pain at this time. Berman is off the floor, patent and draining clear yellow urine. Instructed on POC and to call for assist PRN. Bed locked, in lowest position, call light within reach, side rails up x2. Will continue to monitor for changes Q1hr and PRN.
[2020-04-28 21:45] VITALS: BP 154/91
[2020-04-28] MEDS: chlordiazePOXIDE HCL 25 MG CAP PO PRN (21:54)
--- NOTE | 2020-04-28 21:55 | NUR ---
Pt is feeling agitated with fine tremors Medicated with Librium as ordered. Will continue to monitor
--- NOTE | 2020-04-29 02:00 | NUR ---
Pt is restless and anxious Medicated with Ativan as ordered. Will continue to monitor.
[2020-04-29] MEDS: LORazepam 0.5 MG TAB PO PRN ×2 (02:03→21:19)
[2020-04-29 05:00] VITALS: BP 137/76
[2020-04-29] MEDS: chlordiazePOXIDE HCL 25 MG CAP PO PRN (05:08)
--- NOTE | 2020-04-29 05:43 | NUR ---
Lab will return later Pt is agitated and being uncooperative
[2020-04-29] MEDS: GABAPENTIN 100 MG CAP PO SCH ×4 (06:58→22:00)
[2020-04-29] MEDS: SUCRALFATE 1 GM/10 ML ORAL SUSP PO SCH ×4 (06:59→22:00)
[2020-04-29 09:00] VITALS: BP 141/63
[2020-04-29] MEDS: PANTOPRAZOLE 40 MG/10 ML VIAL INJ IV SCH ×2 (09:26→22:00)
[2020-04-29] MEDS: DIGOXIN 0.125 MG TAB PO SCH (09:26)
[2020-04-29] MEDS: AMIODARONE HCL 200 MG TAB PO SCH (09:27)
[2020-04-29] MEDS: APIXABAN 2.5 MG TAB PO SCH ×2 (09:27→22:00)
[2020-04-29] MEDS: METOPROLOL TARTRATE 50 MG TAB PO SCH ×2 (09:27→22:00)
[2020-04-29] MEDS: Ensure HIGH Protein Chocolate 8oz Bottle PO SCH ×3 (09:28→17:37)
[2020-04-29] MEDS: SERTRALINE HCL 50 MG TAB PO SCH (09:28)
[2020-04-29 10:20] LABS: Basophils # (auto) 0 10 ^3/uL (0-0.2); Basophils % (auto) 0.7 % (0.0-2.0); Eosinophils # (auto) 0.1 10 ^3/uL (0-0.8); Eosinophils % (auto) 0.9 % (0.0-7.0); Hemoglobin 11.9 g/dL (12.2-16.2); Lymphocytes # (auto) 1.7 10 ^3/uL (0.4-5.4); Lymphocytes % (auto) 25.5 % (10.0-50.0); Mean Corpuscular Hemoglobin 32.4 pg (28.0-32.0); Mean Corpuscular Hgb Conc. 35.1 g/dL (32.0-36.0); Mean Corpuscular Volume 92.3 fL (80.0-100.0); Monocytes # (auto) 0.7 10 ^3/uL (0-1.3); Monocytes % (auto) 10.4 % (0.0-12.0); Neutrophils # (auto) 4.2 10 ^3/uL (1.6-8.6); Neutrophils % (auto) 62.5 % (37.0-80.0); Nucleated Red Blood Cells % 0.1 %; Platelet Count (auto) 134 10^3/uL (140-450); Red Blood Cells 3.68 10^6/uL (4.0-5.20); Red Cell Distribution Width 15.1 % (11.8-14.3); White Blood Cell 6.8 10^3/uL (4.4-10.8)
[2020-04-29 10:42] LABS: Albumin 2.8 g/dL (3.4-5.0); Calcium 8.3 mg/dL (8.5-10.1); Potassium 3.3 mmol/L (3.5-5.1)
[2020-04-29 10:50] LABS: BUN/Creatinine Ratio 29.8; Bilirubin, Total 0.6 mg/dL (0.2-1.0); Total Protein 5.7 g/dL (6.4-8.2)
--- NOTE | 2020-04-29 14:00 | NUR ---
Daniel catheter dc'd Order to discontinue daniel catheter. Daniel dc'd with clean technique following deflation of balloon. Patient tolerated well with no complaints of pain. Continue care.
[2020-04-29] MEDS: ACETAMINOPHEN 325 MG TAB PO PRN (14:15)
[2020-04-29] MEDS ORDERED: POTASSIUM CHL 20 Meq TABLET PO ONE (14:30)
--- NOTE | 2020-04-29 14:48 | NUR ---
Nutrition Assessment Est energy needs 7952-6221 kcal (25-30 kcal/kg BW 63kg) Est protein needs 50-63g (0.8-1g/kg BW 63kg) Will reassess prn. Addendum: 04/29/20 at [address] Amended: Links added.
[2020-04-29] MEDS: FOLIC ACID 1 MG, MULTIPLE VITAMIN 10 ML, MAGNESIUM SULF SDV 50% 8 MEQ, THIAMINE INJ 100... INJ SCH ×5 (15:14)
[2020-04-29 17:00] VITALS: BP 156/103
[2020-04-29] MEDS ORDERED: POTASSIUM EFFERVESENT TAB 25 MEQ PO ONE (18:15)
[2020-04-29 22:00] VITALS: BP 102/46
--- NOTE | 2020-04-30 05:12 | NUR ---
pt placed on O2 via n/c at 2lpm r/t desating per sitter to 88%, currently 96% on 2 lpm.
[2020-04-30 05:17] VITALS: BP 147/87
[2020-04-30] MEDS: GABAPENTIN 100 MG CAP PO SCH ×4 (06:41→22:01)
[2020-04-30] MEDS: SUCRALFATE 1 GM/10 ML ORAL SUSP PO SCH ×4 (06:42→22:00)
[2020-04-30 06:52] LABS: Calcium 7.9 mg/dL (8.5-10.1); Potassium 3.7 mmol/L (3.5-5.1)
[2020-04-30 06:56] LABS: BUN/Creatinine Ratio 30.5
[2020-04-30] MEDS: Ensure HIGH Protein Chocolate 8oz Bottle PO SCH ×3 (08:00→18:00)
[2020-04-30 09:01] VITALS: BP 134/62
[2020-04-30] MEDS: AMIODARONE HCL 200 MG TAB PO SCH (10:00)
[2020-04-30] MEDS: DIGOXIN 0.125 MG TAB PO SCH (10:00)
[2020-04-30] MEDS: METOPROLOL TARTRATE 50 MG TAB PO SCH ×2 (10:00→22:02)
[2020-04-30] MEDS: PANTOPRAZOLE 40 MG/10 ML VIAL INJ IV SCH ×2 (10:39→22:00)
[2020-04-30] MEDS: APIXABAN 2.5 MG TAB PO SCH ×2 (10:40→22:00)
[2020-04-30] MEDS: LISINOPRIL 10 MG TAB PO SCH (10:43)
[2020-04-30] MEDS: SERTRALINE HCL 50 MG TAB PO SCH (10:44)
--- NOTE | 2020-04-30 10:45 | NUR ---
at bedside MD Spencer at bedside, aware of patient's status including pt decreased HR in the 30's. No s/s of distress or sob noted. MD aware of patient's c/o cp and medicated with Morphine as ordered. MD states he will call patient's primary psych physician regarding plan? MD Spencer informed Heavy Equipment Field Mechanic Dr Wade regarding decreased HR. Awaiting new orders at this time.
[2020-04-30] MEDS ORDERED: HYOSCYAMINE SULF 0.125 MG ODT TAB PO PRN (11:00)
[2020-04-30] MEDS: FOLIC ACID 1 MG, MULTIPLE VITAMIN 10 ML, MAGNESIUM SULF SDV 50% 8 MEQ, THIAMINE INJ 100... INJ SCH ×5 (12:59)
[2020-04-30 13:01] VITALS: BP 112/63
[2020-04-30 16:53] VITALS: BP 122/82
--- NOTE | 2020-04-30 17:47 | NUR ---
Neurologist at bedside MD Reid at bedside, pt continues to c/o headache. No new orders received at this time. No s/s of distress or sob noted. Sitter at bedside. Patient denies abd pain, denies cp.
--- NOTE | 2020-04-30 19:05 | NUR ---
Patient care endorsed endorsed care to Jeanette swenson. Patient laying comfortably in bed sleeping in no acute distress or sob, breathing non labored. Currently running IV MVI infusion as ordered. Sitter at bedside
--- NOTE | 2020-04-30 19:15 | NUR ---
Opening Shift Note Assumed care of patient. Patient is awake and alert, resting in bed. No S/S of respiratory distress noted or reported. Patient denies any pain at this time. Bed in lowest locked position, side rails x 2 up, call light is within reach. Sitter at bed side. Patient instructed on POC and to call for assistance PRN. Will continue to monitor for changes Q1hr and PRN.
[2020-04-30 20:00] VITALS: BP 127/61
[2020-04-30 22:00] VITALS: BP 127/61
[2020-05-01 04:55] VITALS: BP 138/78
[2020-05-01] MEDS: GABAPENTIN 100 MG CAP PO SCH ×2 (06:09→12:00)
[2020-05-01] MEDS: SUCRALFATE 1 GM/10 ML ORAL SUSP PO SCH ×2 (06:09→11:30)
[2020-05-01 08:00] VITALS: BP 116/70
[2020-05-01] MEDS: Ensure HIGH Protein Chocolate 8oz Bottle PO SCH ×2 (08:00→12:00)
[2020-05-01] MEDS: ACETAMINOPHEN 325 MG TAB PO PRN (09:25)
[2020-05-01] MEDS: PANTOPRAZOLE 40 MG/10 ML VIAL INJ IV SCH (09:31)
[2020-05-01] MEDS: APIXABAN 2.5 MG TAB PO SCH (09:31)
[2020-05-01] MEDS: AMIODARONE HCL 200 MG TAB PO SCH (09:31)
[2020-05-01] MEDS: SERTRALINE HCL 50 MG TAB PO SCH (09:32)
[2020-05-01] MEDS: LISINOPRIL 10 MG TAB PO SCH (09:34)
[2020-05-01] MEDS: METOPROLOL TARTRATE 50 MG TAB PO SCH (09:34)
[2020-05-01] MEDS: DIGOXIN 0.125 MG TAB PO SCH (09:34)
[2020-05-01] MEDS ORDERED: ASPI-231 PO ×2 (10:14)
[2020-05-01] MEDS ORDERED: MULT-777 PO ×2 (10:14)
[2020-05-01] MEDS ORDERED: AMIO200T4 PO ×2 (10:14)
[2020-05-01] MEDS ORDERED: LISI-648 PO ×2 (10:14)
[2020-05-01] MEDS ORDERED: DIGO0.1238 PO ×2 (10:14)
[2020-05-01] MEDS: LORazepam 0.5 MG TAB PO PRN (10:15)
[2020-05-01] MEDS: FOLIC ACID 1 MG, MULTIPLE VITAMIN 10 ML, MAGNESIUM SULF SDV 50% 8 MEQ, THIAMINE INJ 100... INJ SCH ×5 (12:00)
[2020-05-01 12:04] VITALS: BP 116/70
--- NOTE | 2020-05-01 13:00 | NUR ---
Discharge instructions given as ordered. Encourage to follow up with PMD as instructed. All questions and concerns addressed. Patient verbalized understanding. Medication reconciliation form completed and copy given to patient. IV removed with catheter intact, pressure dressing applied . Telemetry unit returned to ICU. Patient taken to vehicle via wheelchair with all personal belongings, accompanied by staff and family member. No distress noted at time of departure.
--- NOTE | 2020-05-01 15:04 | NUR ---
D/C Planning Regarding social service consult for home health for medication management and physical therapy. Clinical information was reviewed by [facility] and only approved medication management. Patient medical group did not approved physical therapy due to patient not meeting criteria. Faxed clinical information to [facility] and Manage care. Per akshat with [facility] patient has been accepted and service to start within 24-48hrs upon d.c day.
== END 2020-05-01 13:00 | disposition home health service (06) | DRG 242 ==
LOC: EDBD → ER 05:41 → CATH 1 13:10 → TELE-WESTW 13:11 → ER 13:20 → TELE-WESTW 22:17
PROVIDERS: ADMIT Internal Medicine; ATTEND Internal Medicine
PROC: 4A023N7 Measurement of Cardiac Sampling and Pressure, Left Heart, Percutaneous Approach (ICD-10-PCS; principal; 2020-04-25)
PROC: 0JH606Z Insertion of Pacemaker, Dual Chamber into Chest Subcutaneous Tissue and Fascia, Open Approach (ICD-10-PCS; 2020-04-25)
PROC: 02HK3JZ Insertion of Pacemaker Lead into Right Ventricle, Percutaneous Approach (ICD-10-PCS; 2020-04-25)
PROC: 02H63JZ Insertion of Pacemaker Lead into Right Atrium, Percutaneous Approach (ICD-10-PCS; 2020-04-25)
PROC: B2111ZZ Fluoroscopy of Multiple Coronary Arteries using Low Osmolar Contrast (ICD-10-PCS; 2020-04-25)
PROC: B2151ZZ Fluoroscopy of Left Heart using Low Osmolar Contrast (ICD-10-PCS; 2020-04-25)
DX: I49.5 Sick sinus syndrome (principal); I21.A1 Myocardial infarction type 2; G92 Toxic encephalopathy; E87.2 Acidosis; D68.69 Other thrombophilia; E44.0 Moderate protein-calorie malnutrition; I48.92 Unspecified atrial flutter; F10.231 Alcohol dependence with withdrawal delirium; R73.9 Hyperglycemia, unspecified; F41.9 Anxiety disorder, unspecified; F32.9 Major depressive disorder, single episode, unspecified; I10 Essential (primary) hypertension; E87.6 Hypokalemia; E88.09 Other disorders of plasma-protein metabolism, not elsewhere classified; I48.0 Paroxysmal atrial fibrillation; F17.210 Nicotine dependence, cigarettes, uncomplicated; G89.29 Other chronic pain; J44.9 Chronic obstructive pulmonary disease, unspecified; Z79.01 Long term (current) use of anticoagulants; Z79.899 Other long term (current) drug therapy; Z80.49 Family history of malignant neoplasm of other genital organs; Z91.5 Personal history of self-harm; Z91.19 Patient's noncompliance with other medical treatment and regimen; Z81.8 Family history of other mental and behavioral disorders; Z86.73 Personal history of transient ischemic attack (TIA), and cerebral infarction without residual deficits; Z91.81 History of falling; Z68.22 Body mass index [BMI] 22.0-22.9, adult
CPT/HCPCS: 33208; 36415; 36600; 70450; 71045; 74176; 76700; 80048; 80053; 80061; 80307; 80320; 81001; 82140; 82150; 82805; 83036; 83605; 83690; 83735; 83880; 84439; 84443; 84484; 85025; 85610; 85730; 87040; 93005; 93306; 93458; 97116; 97163; 97530; 99152; 99153; 99291; C1751; C1785; C9113; G0378; J0696; J2250; J2405; J7060

== ENCOUNTER 2020-05-02 20:52 | Emergency (ER) | payer OTHER ==
[~2020-05-02] VITALS: Ht 165.1 cm; Wt 61.2 kg
[~2020-05-02 20:52] MED LIST changes: +AMIO200T4 PO; -APIX5TAB PO; -ARIP2TAB PO; +ASPI-231 PO; -CLON0.5T3 PO; +DIGO0.1238 PO; -DIPH25CA66 PO; +GABA100C9 PO; -HAL5T PO; +LISI-648 PO; +MULT-777 PO; +SERT-274 PO
[2020-05-02 21:11] VITALS: BP 143/82
== END 2020-05-02 23:04 | disposition left against medical advice (07) ==
LOC: ER 20:52 → EDBD 20:52 → ER 23:04
DX: G89.29 Other chronic pain (principal); Z53.21 Procedure and treatment not carried out due to patient leaving prior to being seen by health care provider

== ENCOUNTER 2020-05-05 14:03 | Emergency (ER) | payer OTHER ==
[~2020-05-05] VITALS: Ht 165.1 cm; Wt 62.1 kg
[2020-05-05 14:42] VITALS: BP 141/79
[2020-05-05] MEDS ORDERED: LORazepam 0.5 MG TAB PO ONE (14:45)
[2020-05-05] MEDS ORDERED: LORazepam 2MG/ML-1ML VIAL IM ONE (15:00)
== END 2020-05-05 15:57 | disposition home or self-care (01) ==
LOC: ER 14:03
DX: F41.9 Anxiety disorder, unspecified (principal); F17.210 Nicotine dependence, cigarettes, uncomplicated; F32.9 Major depressive disorder, single episode, unspecified; J44.9 Chronic obstructive pulmonary disease, unspecified; I10 Essential (primary) hypertension
CPT/HCPCS: 96372; 99283; J2060

== ENCOUNTER → 2020-05-23 | Emergency (ER) | payer OTHER ==
[~2020-05-23] VITALS: Ht 167.6 cm; Wt 62.6 kg
[~2020-05-23] MED LIST changes: +LORazepam 0.5 MG TAB PO ONE
[2020-05-23 18:06] VITALS: BP 134/96
== END | disposition home or self-care (01) ==
LOC: ER 17:21
DX: F41.9 Anxiety disorder, unspecified (principal); I25.10 Atherosclerotic heart disease of native coronary artery without angina pectoris; J44.9 Chronic obstructive pulmonary disease, unspecified; F32.9 Major depressive disorder, single episode, unspecified; I10 Essential (primary) hypertension; F17.210 Nicotine dependence, cigarettes, uncomplicated; Z95.0 Presence of cardiac pacemaker
CPT/HCPCS: 71045

== ENCOUNTER → 2020-05-28 | Emergency (ER) | payer OTHER ==
[~2020-05-28] MED LIST changes: -LORazepam 0.5 MG TAB PO ONE
== END | disposition home or self-care (01) ==
LOC: ER 19:44
DX: F41.9 Anxiety disorder, unspecified (principal); Z53.21 Procedure and treatment not carried out due to patient leaving prior to being seen by health care provider

== ENCOUNTER 2020-06-03 19:17 | Emergency (ER) | payer OTHER ==
[~2020-06-03] VITALS: Ht 177.8 cm; Wt 49.9 kg
[2020-06-03] MEDS ORDERED: MORPHINE SULFATE 4 MG/ML SYR/VIAL IV ONE (20:00)
[2020-06-03] MEDS ORDERED: ONDANSETRON HCL 4 MG/2 ML VIAL IV ONE (20:00)
[2020-06-03 22:24] VITALS: BP 108/58
== END 2020-06-03 22:57 | disposition home or self-care (01) ==
LOC: EDBD 19:17 → ER 19:17
DX: S20.212A Contusion of left front wall of thorax, initial encounter (principal); I25.10 Atherosclerotic heart disease of native coronary artery without angina pectoris; I10 Essential (primary) hypertension; Z79.899 Other long term (current) drug therapy; Z79.82 Long term (current) use of aspirin; W19.XXXA Unspecified fall, initial encounter; Y93.89 Activity, other specified; Y92.89 Other specified places as the place of occurrence of the external cause; Y99.8 Other external cause status
CPT/HCPCS: 71101; 96374; 96375; 99284; J2270; J2405; 12011

== ENCOUNTER 2020-06-05 16:57 | Emergency (ER) | payer OTHER ==
[~2020-06-05] VITALS: Ht 167.6 cm; Wt 62.6 kg
[2020-06-05 17:18] VITALS: BP 136/93
== END 2020-06-05 21:30 | disposition left against medical advice (07) ==
LOC: ER 16:57
DX: F41.9 Anxiety disorder, unspecified (principal); Z53.21 Procedure and treatment not carried out due to patient leaving prior to being seen by health care provider

== ENCOUNTER 2020-06-15 21:27 | Emergency (ER) | payer OTHER ==
[~2020-06-15] VITALS: Ht 165.1 cm; Wt 72.6 kg
[2020-06-15] MEDS ORDERED: SODIUM CHLORIDE 0.9% 1,000 ML IV ONE (22:45)
[2020-06-15] MEDS ORDERED: THIAMINE INJ 100 MG in SODIUM CHLORIDE 0.9% 1,000 ML IV ONE (22:45)
[2020-06-15 22:49] LABS: Urine Bacteria FEW /hpf (None Seen); Urine Blood TRACE /uL (Negative); Urine Mucus FEW (None Seen); Urine Specific Gravity 1.016 (1.001-1.035); Urine WBC 3 /hpf (0 - 5)
[2020-06-15 23:03] LABS: Amphetamine Screen, Urine NEGATIVE (NEGATIVE); Barbiturate Scree,Urine NEGATIVE (NEGATIVE); Benzodiazephine Screen, Urine NEGATIVE (NEGATIVE); Cannabinoid Screen, Urine NEGATIVE (NEGATIVE); Cocaine Screen, Urine NEGATIVE (NEGATIVE); Opiate Scree,Urine NEGATIVE (NEGATIVE); Phencyclidine Screen, Urine NEGATIVE (NEGATIVE)
[2020-06-15 23:12] LABS: Basophils # (auto) 0.1 10 ^3/uL (0-0.2); Basophils % (auto) 0.8 % (0.0-2.0); Eosinophils # (auto) 0 10 ^3/uL (0-0.8); Hematocrit 48.7 % (36.0-46.0); Hemoglobin 16.2 g/dL (12.2-16.2); Lymphocytes # (auto) 3.3 10 ^3/uL (0.4-5.4); Mean Corpuscular Hemoglobin 31.3 pg (28.0-32.0); Mean Corpuscular Hgb Conc. 33.4 g/dL (32.0-36.0); Mean Corpuscular Volume 93.6 fL (80.0-100.0); Monocytes # (auto) 0.3 10 ^3/uL (0-1.3); Monocytes % (auto) 3.5 % (0.0-12.0); Neutrophils % (auto) 52.7 % (37.0-80.0); Platelet Count (auto) 283 10^3/uL (140-450); Red Cell Distribution Width 13.6 % (11.8-14.3); White Blood Cell 7.6 10^3/uL (4.4-10.8)
[2020-06-15 23:31] LABS: Albumin 3.9 g/dL (3.4-5.0); Magnesium 2.2 mg/dL (1.6-2.6); Potassium 4.2 mmol/L (3.5-5.1)
[2020-06-15 23:33] LABS: BUN/Creatinine Ratio 12.1; Salicylate 6.1 mg/dL (2.8-20.0)
[2020-06-15 23:36] LABS: Bilirubin, Total 0.3 mg/dL (0.2-1.0); Total Protein 7.7 g/dL (6.4-8.2)
[2020-06-15 23:47] LABS: Acetaminophen < 2.0 ug/mL (10-30)
[2020-06-16] MEDS ORDERED: THIAMINE 100mg/ml INJ (200mg/2ml VIAL) IV ONE (00:30)
[2020-06-16] MEDS ORDERED: SODIUM CHLORIDE 0.9% 1,000 ML IV ONE ×2 (00:30→02:00)
[2020-06-16] MEDS ORDERED: LORazepam 2MG/ML-1ML VIAL IV ONE (00:45)
[2020-06-16 01:43] LABS: Amylase 44 U/L (25-115); Lipase 216 U/L (73-393)
[2020-06-16] MEDS ORDERED: ONDANSETRON HCL 4 MG/2 ML VIAL IV ONE (04:45)
[2020-06-16 06:00] VITALS: BP 110/64
[2020-06-16] MEDS ORDERED: LORazepam 0.5 MG TAB PO ONE (06:15)
== END 2020-06-16 06:38 | disposition home or self-care (01) ==
LOC: EDUNIT# 21:27 → EDBD 21:27 → ER 21:29
DX: F10.920 Alcohol use, unspecified with intoxication, uncomplicated (principal); K29.20 Alcoholic gastritis without bleeding; K70.30 Alcoholic cirrhosis of liver without ascites; F41.9 Anxiety disorder, unspecified
CPT/HCPCS: 36415; 74176; 80053; 80307; 80320; 80329; 81001; 82150; 83690; 83735; 83880; 85025; 96361; 96374; 96375; 99285; J2060; J2405; J3411; J7030

== ENCOUNTER 2020-06-16 07:41 | Emergency (ER) | payer OTHER ==
[~2020-06-16] VITALS: Ht 165.1 cm; Wt 62.6 kg
[2020-06-16 07:51] VITALS: BP 139/82
[2020-06-16] MEDS ORDERED: LORazepam 0.5 MG TAB PO ONE (10:00)
== END 2020-06-16 12:48 | disposition home or self-care (01) ==
LOC: ER 07:41
DX: F41.9 Anxiety disorder, unspecified (principal); I25.10 Atherosclerotic heart disease of native coronary artery without angina pectoris; I11.0 Hypertensive heart disease with heart failure; I50.9 Heart failure, unspecified; J44.9 Chronic obstructive pulmonary disease, unspecified; F17.210 Nicotine dependence, cigarettes, uncomplicated

== ENCOUNTER 2020-06-17 07:53 | Emergency (ER) | payer OTHER ==
[~2020-06-17] VITALS: Ht 175.3 cm; Wt 68.0 kg
[2020-06-17 08:00] VITALS: BP 119/69
== END 2020-06-17 10:15 | disposition home or self-care (01) ==
LOC: ER 07:53 → EDBD 07:53 → ER 10:15
DX: F10.920 Alcohol use, unspecified with intoxication, uncomplicated (principal); F41.9 Anxiety disorder, unspecified; J44.9 Chronic obstructive pulmonary disease, unspecified; I11.0 Hypertensive heart disease with heart failure; I50.9 Heart failure, unspecified; F17.210 Nicotine dependence, cigarettes, uncomplicated; Z79.899 Other long term (current) drug therapy

== ENCOUNTER 2020-06-17 22:15 | Inpatient (IN) | payer OTHER ==
[~2020-06-17] VITALS: Ht 165.1 cm; Wt 62.7 kg
[2020-06-17 22:00] VITALS: BP 149/79
[2020-06-17 23:34] LABS: Basophils # (auto) 0.1 10 ^3/uL (0-0.2); Basophils % (auto) 0.7 % (0.0-2.0); Eosinophils # (auto) 0 10 ^3/uL (0-0.8); Eosinophils % (auto) 0.3 % (0.0-7.0); Hematocrit 40.3 % (36.0-46.0); Hemoglobin 13.8 g/dL (12.2-16.2); Lymphocytes # (auto) 2.1 10 ^3/uL (0.4-5.4); Lymphocytes % (auto) 21.2 % (10.0-50.0); Mean Corpuscular Hemoglobin 32.1 pg (28.0-32.0); Mean Corpuscular Hgb Conc. 34.2 g/dL (32.0-36.0); Mean Corpuscular Volume 93.9 fL (80.0-100.0); Monocytes # (auto) 0.4 10 ^3/uL (0-1.3); Monocytes % (auto) 4.1 % (0.0-12.0); Neutrophils # (auto) 7.4 10 ^3/uL (1.6-8.6); Neutrophils % (auto) 73.7 % (37.0-80.0); Nucleated Red Blood Cells % 0.2 %; Platelet Count (auto) 177 10^3/uL (140-450); Red Blood Cells 4.29 10^6/uL (4.0-5.20); Red Cell Distribution Width 13.4 % (11.8-14.3)
[2020-06-17 23:53] LABS: Alanine Aminotransferase 16 U/L (13-56); Albumin 3.4 g/dL (3.4-5.0); Anion Gap 4 (5-15); Aspartate Aminotransferase 23 U/L (15-37); Blood Urea Nitrogen 9 mg/dL (7-18); Calcium 8.3 mg/dL (8.5-10.1); Carbon Dioxide 29 mmol/L (21-32); Chloride 107 mmol/L (98-107); GFR African American 99 mL/min; GFR Non-African American 82 mL/min; Glucose 85 mg/dL (74-106); Sodium 140 mmol/L (136-145)
[2020-06-17 23:57] LABS: Alkaline Phosphatase 82 U/L (45-117); Bilirubin, Total 0.9 mg/dL (0.2-1.0); Total Protein 6.6 g/dL (6.4-8.2)
[2020-06-18] MEDS ORDERED: MORPHINE SULF INJ 2 MG/ML SYRINGE 1ML IV PRN (01:00)
[2020-06-18] MEDS ORDERED: TEMAZEPAM 15 MG CAP PO PRN (01:00)
[2020-06-18] MEDS ORDERED: ONDANSETRON HCL 4 MG/2 ML VIAL IV PRN (01:00)
[2020-06-18] MEDS ORDERED: ACETAMINOPHEN 325 MG TAB PO PRN (01:00)
[2020-06-18] MEDS ORDERED: NITROGLYCERIN 0.4 MG SL TAB SL PRN (01:00)
[2020-06-18 01:01] VITALS: BP 149/79
[2020-06-18 05:30] VITALS: BP 150/78
--- NOTE | 2020-06-18 08:15 | NUR ---
Opening Shift Note Assumed care of patient, awake and alert. No S/S of distress/SOB or pain. Bed in lowest/locked position, bed rails up x2, call light within reach. Instructed on POC and to call for assist PRN. Will continue to monitor for changes Q1hr and PRN.
[2020-06-18 09:00] VITALS: BP 133/65
[2020-06-18] MEDS: GABAPENTIN 100 MG CAP PO SCH ×2 (09:24→22:20)
[2020-06-18] MEDS: ASPirin 81 mg TAB PO SCH (09:24)
[2020-06-18] MEDS: PANTOPRAZOLE 40 MG TAB PO SCH (09:25)
[2020-06-18] MEDS: ENOXAPARIN SOD 40 MG/0.4 ML SYRINGE SC SCH (09:25)
[2020-06-18] MEDS: SERTRALINE HCL 50 MG TAB PO SCH (09:25)
[2020-06-18] MEDS: AMIODARONE HCL 200 MG TAB PO SCH (09:26)
[2020-06-18] MEDS: DIGOXIN 0.125 MG TAB PO SCH (09:26)
[2020-06-18] MEDS: METOPROLOL TARTRATE 25 MG TAB PO SCH ×2 (09:27→22:20)
[2020-06-18] MEDS: chlordiazePOXIDE HCL 25 MG CAP PO PRN ×2 (09:36→15:20)
--- NOTE | 2020-06-18 11:55 | NUR ---
ROUNDS DR BERNAL AT BEDSIDE
--- NOTE | 2020-06-18 12:00 | NUR ---
IV insertion IV access obtained, via clean sterile technique by inserting 22 gauge catheter at LAC after 1 attempt. IV secured properly. No trauma to site. Patient tolerated procedure well.
[2020-06-18] MEDS: LORazepam 0.5 MG TAB PO PRN ×2 (12:20→20:37)
[2020-06-18] MEDS: FOLIC ACID 1 MG, MULTIPLE VITAMIN 10 ML, MAGNESIUM SULF SDV 50% 8 MEQ, THIAMINE INJ 100... INJ SCH ×5 (12:24)
[2020-06-18 12:30] VITALS: BP 121/64
[2020-06-18 17:28] VITALS: BP 152/88
--- NOTE | 2020-06-18 17:30 | NUR ---
REQUEST PATIENT REQUESTING TO HAVE MEDICATIONS TO SLEEP. NOTIFIED DR BERNAL. PER DR BERNAL; NO MORE MEDICATIONS FOR PATIENT
--- NOTE | 2020-06-18 18:55 | NUR ---
LAB UA SENT TO LAB PER MD ORDERS
[2020-06-18 19:25] LABS: Urine Bacteria MOD /hpf (None Seen); Urine Blood 1+ /uL (Negative); Urine Mucus FEW (None Seen); Urine Specific Gravity 1.023 (1.001-1.035); Urine WBC 45 /hpf (0 - 5); Urine WBC Clumps PRESENT /hpf (None Seen)
--- NOTE | 2020-06-18 19:35 | NUR ---
Opening Shift Note Assumed care of patient, awake and alert. No S/S of distress/SOB, complains of headache 06/07 will check EMAR and follow MD orders for pain. Pt on 2L NC. Bed in lowest locked position, safety precautions in place and call light within reach. Instructed on POC and to call for assist PRN, will continue to monitor for changes Q1hr and PRN.
[2020-06-18 19:38] LABS: Amphetamine Screen, Urine NEGATIVE (NEGATIVE); Barbiturate Scree,Urine NEGATIVE (NEGATIVE); Benzodiazephine Screen, Urine POSITIVE (NEGATIVE); Cannabinoid Screen, Urine NEGATIVE (NEGATIVE); Cocaine Screen, Urine NEGATIVE (NEGATIVE); Opiate Scree,Urine NEGATIVE (NEGATIVE); Phencyclidine Screen, Urine NEGATIVE (NEGATIVE)
[2020-06-18 20:56] VITALS: BP 130/77
[2020-06-19] MEDS ORDERED: cefTRIAXone 1GM/50ML D5W 50 ML IV ONE
[2020-06-19 05:20] VITALS: BP 141/78
[2020-06-19 06:47] LABS: Basophils # (auto) 0 10 ^3/uL (0-0.2); Basophils % (auto) 0.4 % (0.0-2.0); Eosinophils # (auto) 0.1 10 ^3/uL (0-0.8); Eosinophils % (auto) 1.6 % (0.0-7.0); Hematocrit 40.5 % (36.0-46.0); Hemoglobin 13.7 g/dL (12.2-16.2); Lymphocytes # (auto) 1.3 10 ^3/uL (0.4-5.4); Mean Corpuscular Hemoglobin 32.1 pg (28.0-32.0); Mean Corpuscular Hgb Conc. 33.8 g/dL (32.0-36.0); Mean Corpuscular Volume 94.8 fL (80.0-100.0); Monocytes # (auto) 0.2 10 ^3/uL (0-1.3); Monocytes % (auto) 4.7 % (0.0-12.0); Neutrophils # (auto) 3.3 10 ^3/uL (1.6-8.6); Neutrophils % (auto) 66.3 % (37.0-80.0); Nucleated Red Blood Cells % 0.1 %; Platelet Count (auto) 143 10^3/uL (140-450); Red Blood Cells 4.28 10^6/uL (4.0-5.20); Red Cell Distribution Width 13.4 % (11.8-14.3)
[2020-06-19 07:06] LABS: Calcium 8.5 mg/dL (8.5-10.1); Potassium 3.6 mmol/L (3.5-5.1)
[2020-06-19 07:09] LABS: Albumin 2.9 g/dL (3.4-5.0); BUN/Creatinine Ratio 12.1; Magnesium 2.3 mg/dL (1.6-2.6)
[2020-06-19 07:12] LABS: Bilirubin, Total 0.7 mg/dL (0.2-1.0); Total Protein 5.9 g/dL (6.4-8.2)
[2020-06-19] MEDS: ENOXAPARIN SOD 40 MG/0.4 ML SYRINGE SC SCH (08:25)
[2020-06-19] MEDS: ASPirin 81 mg TAB PO SCH (08:25)
[2020-06-19] MEDS: GABAPENTIN 100 MG CAP PO SCH (08:25)
[2020-06-19] MEDS: PANTOPRAZOLE 40 MG TAB PO SCH (08:25)
[2020-06-19] MEDS: SERTRALINE HCL 50 MG TAB PO SCH (08:25)
[2020-06-19] MEDS: AMIODARONE HCL 200 MG TAB PO SCH (08:26)
[2020-06-19] MEDS: DIGOXIN 0.125 MG TAB PO SCH (08:27)
[2020-06-19] MEDS: LORazepam 0.5 MG TAB PO PRN (08:27)
[2020-06-19] MEDS: METOPROLOL TARTRATE 25 MG TAB PO SCH (08:28)
[2020-06-19] MEDS ORDERED: cefTRIAXone 1GM/50ML D5W 50 ML IV SCH (09:00)
--- NOTE | 2020-06-19 09:30 | NUR ---
ROUNDS DR BERNAL AT BEDSIDE
[2020-06-19] MEDS ORDERED: ALUM & MAG HYDROX-SIMETH LIQ(MAALOX) 30 ML PO ONE (09:45)
[2020-06-19] MEDS ORDERED: FAMOTIDINE 20 MG TAB PO SCH (10:00)
[2020-06-19] MEDS: chlordiazePOXIDE HCL 25 MG CAP PO PRN (10:31)
[2020-06-19] MEDS: FOLIC ACID 1 MG, MULTIPLE VITAMIN 10 ML, MAGNESIUM SULF SDV 50% 8 MEQ, THIAMINE INJ 100... INJ SCH ×5 (12:00)
[2020-06-19] MEDS ORDERED: PANT40T PO (12:08)
[2020-06-19 12:24] VITALS: BP 151/85
--- NOTE | 2020-06-19 13:18 | NUR ---
Discharge instructions given as ordered. Encourage to follow up with PMD as instructed. All questions and concerns addressed. Patient verbalized understanding. IV removed with catheter intact, pressure dressing applied. Telemetry unit returned to ICU. Patient taken to vehicle via wheelchair with all personal belongings, accompanied by staff. No distress noted at time of departure.
--- NOTE | 2020-06-19 15:00 | NUR ---
The patient is a 65 years old female, patient is alert and oriented. Patient has prior medical history of alcohol abuse. Patient cognitive abilities are intact, patient can do all ADLs independently with the assistance of fww and cane. Prior to admission to [facility], patient resides with her Nick. Patient stated that post discharge patient will return home with her . Patient stated that her will provide transportation when discharged from [facility]. Patient stated that she is receptive to therapy. Patient PCP is Clifton TARANGO. Discharge planning: Patient is receptive for counseling therapy per patient request. Patient declined resources for inpatient and outpatient ETOH facilities including AA. Addendum: 06/19/20 at 1500 by PHILIPPE BAEZA Amended: Links added.
[2020-06-19] MEDS ORDERED: PANTOPRAZOLE 40 MG TAB PO SCH (22:00)
== END 2020-06-19 13:05 | disposition home or self-care (01) | DRG 690 ==
LOC: TELE-CENTR 22:15
PROVIDERS: ADMIT Internal Medicine; ATTEND Internal Medicine
DX: N39.0 Urinary tract infection, site not specified (principal); F10.221 Alcohol dependence with intoxication delirium; Y90.0 Blood alcohol level of less than 20 mg/100 ml; J44.9 Chronic obstructive pulmonary disease, unspecified; Z91.19 Patient's noncompliance with other medical treatment and regimen; Z72.0 Tobacco use; Z95.0 Presence of cardiac pacemaker; I50.9 Heart failure, unspecified; I11.0 Hypertensive heart disease with heart failure
CPT/HCPCS: 36415; 80053; 80307; 80320; 81001; 83735; 84484; 85025; 87081; 93005; G0378; J0696

== ENCOUNTER 2020-08-09 08:40 | Emergency (ER) | payer OTHER ==
[~2020-08-09] VITALS: Ht 170.2 cm; Wt 77.1 kg
[2020-08-09 08:50] VITALS: BP 102/32
[2020-08-09] MEDS ORDERED: SODIUM CHLORIDE 0.9% 1,000 ML IVB ONE (09:00)
[2020-08-09] MEDS ORDERED: THIAMINE 100mg/ml INJ (200mg/2ml VIAL) IV ONE (09:00)
[2020-08-09] MEDS ORDERED: methylPREDNISolone SOD SUCC 125 MG/2 ML VL IV ONE (09:15)
[2020-08-09 10:19] LABS: Basophils # (auto) 0 10 ^3/uL (0-0.2); Basophils % (auto) 0.4 % (0.0-2.0); Eosinophils # (auto) 0 10 ^3/uL (0-0.8); Eosinophils % (auto) 0.1 % (0.0-7.0); Hematocrit 48.3 % (36.0-46.0); Hemoglobin 16.2 g/dL (12.2-16.2); Lymphocytes # (auto) 2.3 10 ^3/uL (0.4-5.4); Lymphocytes % (auto) 26.7 % (10.0-50.0); Mean Corpuscular Hemoglobin 31.6 pg (28.0-32.0); Mean Corpuscular Hgb Conc. 33.6 g/dL (32.0-36.0); Mean Corpuscular Volume 94.1 fL (80.0-100.0); Monocytes # (auto) 0.3 10 ^3/uL (0-1.3); Monocytes % (auto) 3.8 % (0.0-12.0); Neutrophils # (auto) 6.1 10 ^3/uL (1.6-8.6); Nucleated Red Blood Cells % 0.1 %; Platelet Count (auto) 248 10^3/uL (140-450); Red Blood Cells 5.14 10^6/uL (4.0-5.20); Red Cell Distribution Width 13.8 % (11.8-14.3); White Blood Cell 8.8 10^3/uL (4.4-10.8)
[2020-08-09 10:49] LABS: Potassium 4.1 mmol/L (3.5-5.1)
[2020-08-09 10:58] LABS: Albumin 3.9 g/dL (3.4-5.0); BUN/Creatinine Ratio 17.4; Bilirubin, Total 0.2 mg/dL (0.2-1.0); Calcium 8.3 mg/dL (8.5-10.1); Total Protein 7.5 g/dL (6.4-8.2)
== END 2020-08-09 11:40 | disposition left against medical advice (07) ==
LOC: EDUNIT# 08:40 → EDBD 08:40 → ER 08:40
DX: F10.920 Alcohol use, unspecified with intoxication, uncomplicated (principal); E86.0 Dehydration; F17.210 Nicotine dependence, cigarettes, uncomplicated; I11.0 Hypertensive heart disease with heart failure; I50.9 Heart failure, unspecified; J44.9 Chronic obstructive pulmonary disease, unspecified; Z79.899 Other long term (current) drug therapy
CPT/HCPCS: 36415; 70450; 71045; 80053; 80320; 85025; 96361; 96374; 96375; 99285; J2930; J3411; J7030

== ENCOUNTER 2020-08-11 01:32 | Emergency (ER) | payer OTHER ==
[~2020-08-11] VITALS: Ht 172.7 cm; Wt 63.5 kg
[2020-08-11 02:23] VITALS: BP 140/60
[2020-08-11 02:31] LABS: Basophils # (auto) 0 10 ^3/uL (0-0.2); Basophils % (auto) 0.4 % (0.0-2.0); Eosinophils # (auto) 0 10 ^3/uL (0-0.8); Eosinophils % (auto) 0.1 % (0.0-7.0); Hematocrit 41.4 % (36.0-46.0); Hemoglobin 14.1 g/dL (12.2-16.2); Lymphocytes # (auto) 2.6 10 ^3/uL (0.4-5.4); Lymphocytes % (auto) 25.8 % (10.0-50.0); Mean Corpuscular Hemoglobin 31.8 pg (28.0-32.0); Mean Corpuscular Volume 93.5 fL (80.0-100.0); Monocytes # (auto) 0.5 10 ^3/uL (0-1.3); Monocytes % (auto) 5.1 % (0.0-12.0); Neutrophils # (auto) 6.8 10 ^3/uL (1.6-8.6); Neutrophils % (auto) 68.6 % (37.0-80.0); Nucleated Red Blood Cells % 0.1 %; Platelet Count (auto) 197 10^3/uL (140-450); Red Blood Cells 4.42 10^6/uL (4.0-5.20); Red Cell Distribution Width 13.6 % (11.8-14.3)
[2020-08-11 02:48] LABS: Albumin 3.6 g/dL (3.4-5.0); Anion Gap 5 (5-15); Blood Urea Nitrogen 17 mg/dL (7-18); Calcium 8.1 mg/dL (8.5-10.1); Carbon Dioxide 30 mmol/L (21-32); Chloride 106 mmol/L (98-107); Glucose 115 mg/dL (74-106); Magnesium 2.7 mg/dL (1.6-2.6); Potassium 4.3 mmol/L (3.5-5.1); Sodium 141 mmol/L (136-145)
[2020-08-11 02:53] LABS: Alanine Aminotransferase 28 U/L (13-56); Alkaline Phosphatase 55 U/L (45-117); Aspartate Aminotransferase 44 U/L (15-37); BUN/Creatinine Ratio 16.3; Bilirubin, Total 0.3 mg/dL (0.2-1.0); GFR African American 68 mL/min; GFR Non-African American 56 mL/min; Total Protein 6.8 g/dL (6.4-8.2)
== END 2020-08-11 02:23 | disposition left against medical advice (07) ==
LOC: ER 01:32 → EDSEX 01:32 → EDBD 01:32 → ER 02:23
DX: R06.02 Shortness of breath (principal); Z53.21 Procedure and treatment not carried out due to patient leaving prior to being seen by health care provider
CPT/HCPCS: 36415; 80053; 83605; 83735; 83880; 84484; 85025

== ENCOUNTER 2020-08-12 12:57 | Emergency (ER) | payer OTHER ==
[~2020-08-12] VITALS: Ht 167.6 cm; Wt 63.0 kg
[2020-08-12 13:00] VITALS: BP 129/79
[2020-08-12] MEDS ORDERED: LORazepam 0.5 MG TAB PO ONE (13:15)
== END 2020-08-12 14:39 | disposition home or self-care (01) ==
LOC: ER 12:57
DX: T50.905A Adverse effect of unspecified drugs, medicaments and biological substances, initial encounter (principal); F41.9 Anxiety disorder, unspecified; Y92.89 Other specified places as the place of occurrence of the external cause
CPT/HCPCS: 93005

== ENCOUNTER 2020-08-17 07:39 | Inpatient (IN) | payer OTHER ==
[~2020-08-17] VITALS: Ht 167.6 cm; Wt 63.0 kg
[2020-08-17] MEDS ORDERED: SODIUM CHLORIDE 0.9% 500 ML IV ONE (08:15)
[2020-08-17] MEDS ORDERED: THIAMINE 100mg/ml INJ (200mg/2ml VIAL) IV ONE (08:30)
[2020-08-17 08:54] LABS: Basophils # (auto) 0 10 ^3/uL (0-0.2); Basophils % (auto) 0.3 % (0.0-2.0); Eosinophils # (auto) 0 10 ^3/uL (0-0.8); Hematocrit 43.3 % (36.0-46.0); Hemoglobin 13.9 g/dL (12.2-16.2); Lymphocytes # (auto) 0.7 10 ^3/uL (0.4-5.4); Lymphocytes % (auto) 4.4 % (10.0-50.0); Mean Corpuscular Hemoglobin 30.7 pg (28.0-32.0); Mean Corpuscular Volume 95.9 fL (80.0-100.0); Monocytes # (auto) 1.1 10 ^3/uL (0-1.3); Monocytes % (auto) 6.5 % (0.0-12.0); Neutrophils # (auto) 14.5 10 ^3/uL (1.6-8.6); Neutrophils % (auto) 88.8 % (37.0-80.0); Platelet Count (auto) 239 10^3/uL (140-450); Red Blood Cells 4.52 10^6/uL (4.0-5.20); Red Cell Distribution Width 14.5 % (11.8-14.3); White Blood Cell 16.3 10^3/uL (4.4-10.8)
[2020-08-17 09:11] LABS: INR 0.97 (0.9-1.15); Partial Thromboplastin Time 25.6 sec (23.0-31.2)
[2020-08-17 09:19] LABS: Albumin 2.8 g/dL (3.4-5.0); Calcium 6.9 mg/dL (8.5-10.1); Potassium 4.7 mmol/L (3.5-5.1)
[2020-08-17 09:23] LABS: BUN/Creatinine Ratio 9.6; Bilirubin, Total 0.3 mg/dL (0.2-1.0); Total Protein 6.1 g/dL (6.4-8.2)
[2020-08-17] MEDS ORDERED: PHYTONADIONE (VIT K)10 MG/ML 1ML VIAL SUBCUT ONE (09:30)
[2020-08-17] MEDS ORDERED: PANTOPRAZOLE 40 MG/10 ML VIAL INJ IV ONE (09:30)
[2020-08-17] MEDS ORDERED: metroNIDAZOLE 500MG/100ML 100 ML IV ONE (09:30)
[2020-08-17] MEDS ORDERED: LORazepam 2MG/ML-1ML VIAL IV ONE (10:15)
[2020-08-17 11:18] LABS: Amphetamine Screen, Urine NEGATIVE (NEGATIVE); Barbiturate Scree,Urine NEGATIVE (NEGATIVE); Benzodiazephine Screen, Urine POSITIVE (NEGATIVE); Cannabinoid Screen, Urine NEGATIVE (NEGATIVE); Cocaine Screen, Urine NEGATIVE (NEGATIVE); Opiate Scree,Urine NEGATIVE (NEGATIVE); Phencyclidine Screen, Urine NEGATIVE (NEGATIVE)
[2020-08-17 11:44] LABS: Urine Bacteria FEW /hpf (None Seen); Urine Blood Negative /uL (Negative); Urine Specific Gravity 1.006 (1.001-1.035); Urine WBC 1 /hpf (0 - 5)
[2020-08-17] MEDS: SODIUM CHLORIDE 0.9% 1,000 ML IV SCH ×2 (11:45→20:44)
[2020-08-17] MEDS ORDERED: levoFLOXacin 500MG 100 ML IV ONE (11:45)
[2020-08-17] MEDS ORDERED: SODIUM CHLORIDE 0.9% 1,000 ML IV ONE (11:45)
[2020-08-17] MEDS ORDERED: NITROGLYCERIN 0.4 MG SL TAB SL PRN (11:45)
[2020-08-17] MEDS ORDERED: ALBUTEROL SULF HFA 90MCG INH 200DOSE IN PRN (11:45)
[2020-08-17] MEDS ORDERED: MORPHINE SULF INJ 2 MG/ML SYRINGE 1ML IV PRN ×2 (11:45→12:00)
[2020-08-17] MEDS ORDERED: PROMETHAZINE HCL 25 MG/ML 1ML IV PRN (12:00)
[2020-08-17] MEDS ORDERED: cefTRIAXone 1GM/50ML D5W 50 ML IV ONE (12:00)
[2020-08-17 12:21] LABS: Lipase 77 U/L (73-393)
[2020-08-17 12:31] LABS: Amylase 1077 U/L (25-115)
[2020-08-17] MEDS: metroNIDAZOLE 500MG/100ML 100 ML IV SCH ×2 (13:29→23:29)
[2020-08-17] MEDS ORDERED: NOREPINEPHRINE 8 MG/250ML KIT 250 ML IV ONE (13:55)
[2020-08-17] MEDS: NOREPINEPHRINE 8 MG/250ML KIT 250 ML IV SCH (14:16)
[2020-08-17] MEDS: LORazepam 2MG/ML-1ML VIAL IV PRN ×2 (16:13→16:30)
[2020-08-17] MEDS: chlordiazePOXIDE HCL 25 MG CAP PO PRN (16:30)
[2020-08-17] MEDS: chlordiazePOXIDE HCL 5 MG CAP PO SCH (16:30)
[2020-08-17] MEDS ORDERED: BUDESONIDE (INHALATION) 180 MCG IH IN SCH (22:00)
--- NOTE | 2020-08-17 23:00 | NUR ---
Respiratory note: MDI TX HELD AT THIS TIME, PT IN NO RESPIRATORY DISTRESS. AWAITING COVID TEST RESULTS
[2020-08-17] MEDS: PANTOPRAZOLE 40 MG/10 ML VIAL INJ IV SCH (23:30)
[2020-08-18 00:13] LABS: Hemoglobin 13.2 g/dL (12.2-16.2)
[2020-08-18] MEDS: SODIUM CHLORIDE 0.9% 1,000 ML IV SCH ×2 (03:45→11:12)
[2020-08-18 05:50] LABS: Basophils # (auto) 0.1 10 ^3/uL (0-0.2); Eosinophils # (auto) 0 10 ^3/uL (0-0.8); Hematocrit 42.6 % (36.0-46.0); Lymphocytes # (auto) 1.5 10 ^3/uL (0.4-5.4); Lymphocytes % (auto) 13.2 % (10.0-50.0); Mean Corpuscular Hemoglobin 31.5 pg (28.0-32.0); Mean Corpuscular Volume 95.6 fL (80.0-100.0); Monocytes % (auto) 8.5 % (0.0-12.0); Neutrophils # (auto) 8.9 10 ^3/uL (1.6-8.6); Neutrophils % (auto) 77.3 % (37.0-80.0); Nucleated Red Blood Cells % 0.1 %; Platelet Count (auto) 148 10^3/uL (140-450); Red Blood Cells 4.45 10^6/uL (4.0-5.20); Red Cell Distribution Width 14.7 % (11.8-14.3); White Blood Cell 11.5 10^3/uL (4.4-10.8)
[2020-08-18] MEDS: metroNIDAZOLE 500MG/100ML 100 ML IV SCH ×3 (05:52→21:45)
[2020-08-18] MEDS: chlordiazePOXIDE HCL 5 MG CAP PO SCH ×5 (06:03→23:08)
[2020-08-18 06:06] LABS: Albumin 2.4 g/dL (3.4-5.0); Calcium 6.4 mg/dL (8.5-10.1); Potassium 5.5 mmol/L (3.5-5.1)
[2020-08-18 06:10] LABS: BUN/Creatinine Ratio 15.1; Bilirubin, Total 0.2 mg/dL (0.2-1.0); Total Protein 5.6 g/dL (6.4-8.2)
[2020-08-18] MEDS: LORazepam 2MG/ML-1ML VIAL IV PRN ×3 (06:36→20:26)
[2020-08-18] MEDS ORDERED: cefTRIAXone 1GM/50ML D5W 50 ML IV SCH (09:00)
[2020-08-18] MEDS: MORPHINE SULF INJ 2 MG/ML SYRINGE 1ML IV PRN ×2 (09:09→20:09)
[2020-08-18] MEDS: PANTOPRAZOLE 40 MG/10 ML VIAL INJ IV SCH ×2 (09:10→21:46)
[2020-08-18] MEDS ORDERED: CHOLECALCIFEROL (VITD3) 2,000 UNIT CAP PO SCH (10:00)
[2020-08-18] MEDS ORDERED: THIAMINE 100mg/ml INJ (200mg/2ml VIAL) IV SCH (10:00)
[2020-08-18] MEDS ORDERED: AZITHROMYCIN 500MG/ 250ML 250 ML IV SCH (10:00)
[2020-08-18] MEDS ORDERED: DexAMETHasone SOD PHOS 10MG/1ML VIAL INJ IV SCH (10:00)
[2020-08-18] MEDS ORDERED: ASCORBIC ACID 1,000 MG TAB PO SCH (10:00)
[2020-08-18] MEDS ORDERED: ZINC SULFATE 220mg CAP or TAB PO SCH (10:00)
[2020-08-18] MEDS: NOREPINEPHRINE 8 MG/250ML KIT 250 ML IV SCH (15:28)
[2020-08-18] MEDS ORDERED: diphenhdrAMINE HCL 50 MG/1 ML VL IV ONE (21:00)
[2020-08-19] MEDS: SODIUM CHLORIDE 0.9% 1,000 ML IV SCH ×2 (02:07→03:54)
[2020-08-19] MEDS: LORazepam 2MG/ML-1ML VIAL IV PRN (02:30)
[2020-08-19] MEDS: chlordiazePOXIDE HCL 25 MG CAP PO PRN (04:27)
[2020-08-19] MEDS ORDERED: diphenhdrAMINE HCL 50 MG/1 ML VL IV ONE (05:00)
[2020-08-19 05:30] VITALS: BP 129/74
== END 2020-08-19 05:31 | disposition left against medical advice (07) | DRG 379 ==
LOC: ER 07:39 → EDBD 07:39 → OVERFLOW 07:40
PROVIDERS: ADMIT Internal Medicine; ATTEND Family Medicine
DX: K62.5 Hemorrhage of anus and rectum (principal); R79.89 Other specified abnormal findings of blood chemistry; J44.9 Chronic obstructive pulmonary disease, unspecified; F41.9 Anxiety disorder, unspecified; F32.9 Major depressive disorder, single episode, unspecified; I50.9 Heart failure, unspecified; F17.210 Nicotine dependence, cigarettes, uncomplicated; I11.0 Hypertensive heart disease with heart failure; Z95.0 Presence of cardiac pacemaker; Z20.828 Contact with and (suspected) exposure to other viral communicable diseases; I95.9 Hypotension, unspecified; Z88.8 Allergy status to other drugs, medicaments and biological substances; Z53.29 Procedure and treatment not carried out because of patient's decision for other reasons
CPT/HCPCS: 36415; 71045; 74176; 76705; 80053; 80307; 80320; 81001; 82150; 82270; 83690; 85014; 85018; 85025; 85045; 85610; 85730; 87426; 87493; 93005; C9113; G0378; J0696; J1100; J1956; J3430; J3490

== ENCOUNTER 2020-08-19 09:01 | Emergency (ER) | payer OTHER ==
[~2020-08-19] VITALS: Ht 167.6 cm; Wt 63.0 kg
[2020-08-19 09:15] VITALS: BP 128/72
== END 2020-08-19 11:40 | disposition left against medical advice (07) ==
LOC: ER 09:01
DX: K62.5 Hemorrhage of anus and rectum (principal); Z53.21 Procedure and treatment not carried out due to patient leaving prior to being seen by health care provider

== ENCOUNTER 2020-08-19 13:04 | Emergency (ER) | payer OTHER ==
[~2020-08-19] VITALS: Ht 175.3 cm; Wt 68.0 kg
[2020-08-19 13:21] VITALS: BP 151/63
== END 2020-08-19 14:23 | disposition left against medical advice (07) ==
LOC: EDBD 13:04 → ER 13:04
DX: K92.1 Melena (principal); Z53.21 Procedure and treatment not carried out due to patient leaving prior to being seen by health care provider

== ENCOUNTER 2020-08-29 17:55 | Inpatient (IN) | payer OTHER ==
[~2020-08-29] VITALS: Ht 167.6 cm; Wt 63.0 kg
[2020-08-29] MEDS ORDERED: SODIUM CHLORIDE 0.9% 1,000 ML IV ONE (18:30)
[2020-08-29] MEDS ORDERED: NOREPINEPHRINE 8 MG/250ML KIT 250 ML IV ONE (19:04)
[2020-08-29] MEDS: NOREPINEPHRINE 8 MG/250ML KIT 250 ML IV SCH (19:15)
[2020-08-29 19:24] LABS: Hemoglobin 13.8 g/dL (12.2-16.2); Mean Corpuscular Hemoglobin 32.6 pg (28.0-32.0)
[2020-08-29 19:26] LABS: Hematocrit 45.8 % (36.0-46.0); Mean Corpuscular Hgb Conc. 30.1 g/dL (32.0-36.0); Mean Corpuscular Volume 108.5 fL (80.0-100.0); Platelet Count (auto) 376 10^3/uL (140-450); Red Blood Cells 4.22 10^6/uL (4.0-5.20); Red Cell Distribution Width 17.9 % (11.8-14.3); White Blood Cell 29.4 10^3/uL (4.4-10.8)
[2020-08-29 19:28] LABS: Basophils % (manual) 0 (0.0-2.0); Blast Cells 0; Eosinophils % (manual) 0 (0-7); Metamyelocytes % 0; Myelocytes % 0; Promyelocytes % 0; Reactive Lymphocytes 0
[2020-08-29 19:37] LABS: Calcium 6.8 mg/dL (8.5-10.1); Magnesium 2.7 mg/dL (1.6-2.6); Potassium 5.1 mmol/L (3.5-5.1)
[2020-08-29 19:40] LABS: BUN/Creatinine Ratio 8.4; Bilirubin, Total 0.3 mg/dL (0.2-1.0)
[2020-08-29 20:19] LABS: Band Neutrophils % (manual) 2; Lymphocytes % (manual) 4 (10.0-50.0); Monocytes % (manual) 6 (0-12)
[2020-08-30] MEDS ORDERED: SODIUM CHLORIDE 0.9% 1,000 ML IV ONE ×2 (04:45→09:15)
[2020-08-30] MEDS ORDERED: MORPHINE SULF INJ 2 MG/ML SYRINGE 1ML IV PRN (06:15)
[2020-08-30] MEDS ORDERED: NITROGLYCERIN 0.4 MG SL TAB SL PRN (06:15)
[2020-08-30] MEDS ORDERED: DOCUSATE SOD 100 MG CAP PO PRN (06:15)
[2020-08-30 08:45] LABS: Basophils # (auto) 0.1 10 ^3/uL (0-0.2); Basophils % (auto) 0.3 % (0.0-2.0); Eosinophils # (auto) 0 10 ^3/uL (0-0.8); Hematocrit 43.9 % (36.0-46.0); Hemoglobin 14.3 g/dL (12.2-16.2); Lymphocytes # (auto) 0.5 10 ^3/uL (0.4-5.4); Mean Corpuscular Hemoglobin 31.7 pg (28.0-32.0); Mean Corpuscular Hgb Conc. 32.6 g/dL (32.0-36.0); Mean Corpuscular Volume 97.4 fL (80.0-100.0); Monocytes # (auto) 0.7 10 ^3/uL (0-1.3); Neutrophils # (auto) 22.7 10 ^3/uL (1.6-8.6); Neutrophils % (auto) 94.7 % (37.0-80.0); Nucleated Red Blood Cells % 0.1 %; Platelet Count (auto) 309 10^3/uL (140-450); Red Blood Cells 4.51 10^6/uL (4.0-5.20); Red Cell Distribution Width 16.8 % (11.8-14.3)
[2020-08-30] MEDS: cefTRIAXone 1GM/50ML D5W 50 ML IV SCH (09:09)
[2020-08-30] MEDS: ONDANSETRON HCL 4 MG/2 ML VIAL IV PRN (09:10)
[2020-08-30 09:42] LABS: Albumin 2.8 g/dL (3.4-5.0); Calcium 6.3 mg/dL (8.5-10.1); Potassium 4.7 mmol/L (3.5-5.1)
[2020-08-30 09:45] LABS: BUN/Creatinine Ratio 8.6; Bilirubin, Total 0.4 mg/dL (0.2-1.0); Total Protein 5.6 g/dL (6.4-8.2)
[2020-08-30] MEDS: ASCORBIC ACID 500 MG TAB PO SCH ×2 (09:55→22:00)
[2020-08-30] MEDS: MULTIPLE VITAMIN TAB PO SCH (09:55)
[2020-08-30] MEDS: HEPARIN SODIUM (PORCINE) 5000 UNITS/ML 1ML VIAL SC SCH ×2 (09:55→22:00)
[2020-08-30] MEDS: FOLIC ACID 1 MG TAB PO SCH (09:56)
[2020-08-30] MEDS: THIAMINE HCL 100 MG TAB PO SCH (09:56)
[2020-08-30] MEDS ORDERED: LACTULOSE 20Gm/30ML SOLN PO SCH ×2 (10:00→18:00)
[2020-08-30] MEDS ORDERED: ZINC SULFATE 220mg CAP or TAB PO SCH (10:00)
[2020-08-30] MEDS ORDERED: FAMOTIDINE (10MG/ML) 2ML VL IV SCH (10:00)
[2020-08-30] MEDS: SODIUM CHLOR 0.9% PF (SALINE LOCK) 10ML VIAL/SYR IV SCH ×2 (14:15→22:00)
[2020-08-30] MEDS: metroNIDAZOLE 500MG/100ML 100 ML IV SCH ×2 (14:15→22:00)
[2020-08-30] MEDS: VASOPRESSIN 50 UNITS in D5W 5% 247.5 ML IV SCH (15:07)
[2020-08-30 15:38] LABS: Urine Bacteria FEW /hpf (None Seen); Urine Blood 3+ /uL (Negative); Urine Mucus FEW (None Seen); Urine Specific Gravity 1.012 (1.001-1.035); Urine WBC 16 /hpf (0 - 5); Urine WBC Clumps PRESENT /hpf (None Seen)
[2020-08-30] MEDS: PANTOPRAZOLE 40 MG/10 ML VIAL INJ IV SCH ×2 (17:03→22:00)
[2020-08-30] MEDS: FOLIC ACID 1 MG, MULTIPLE VITAMIN 10 ML, MAGNESIUM SULF SDV 50% 8 MEQ, THIAMINE INJ 100... INJ SCH ×5 (17:47)
[2020-08-30] MEDS ORDERED: SODIUM BICARBONATE 8.4 % INJ 50ML VIAL IV ONE (17:59)
[2020-08-30] MEDS: SODIUM BICARBONATE 50ML VIAL 150 ML in D5W 5% 1,000 ML IV SCH (18:13)
[2020-08-30] MEDS: MIDODRINE HCL 10 MG TAB PO SCH (18:29)
[2020-08-30 18:48] LABS: Amphetamine Screen, Urine NEGATIVE (NEGATIVE); Barbiturate Scree,Urine NEGATIVE (NEGATIVE); Benzodiazephine Screen, Urine POSITIVE (NEGATIVE); Cannabinoid Screen, Urine NEGATIVE (NEGATIVE); Cocaine Screen, Urine NEGATIVE (NEGATIVE); Opiate Scree,Urine NEGATIVE (NEGATIVE); Phencyclidine Screen, Urine NEGATIVE (NEGATIVE)
[2020-08-30 18:49] LABS: Creatinine, Urine 68 mg/dL (30.0-125.0); Sodium Urine 58 mmol/L (40-220)
[2020-08-30] MEDS: NOREPINEPHRINE 8 MG/250ML KIT 250 ML IV SCH (19:18)
[2020-08-30] MEDS ORDERED: FUROSEMIDE 100 MG/10ML VIAL IV ONE (19:45)
[2020-08-30] MEDS ORDERED: PANTOPRAZOLE 40 MG TAB PO ONE (23:45)
[2020-08-31 05:36] LABS: Basophils # (auto) 0 10 ^3/uL (0-0.2); Basophils % (auto) 0.2 % (0.0-2.0); Eosinophils # (auto) 0 10 ^3/uL (0-0.8); Hemoglobin 12.4 g/dL (12.2-16.2); Lymphocytes # (auto) 0.9 10 ^3/uL (0.4-5.4); Lymphocytes % (auto) 4.9 % (10.0-50.0); Mean Corpuscular Hemoglobin 31.8 pg (28.0-32.0); Mean Corpuscular Hgb Conc. 33.5 g/dL (32.0-36.0); Mean Corpuscular Volume 94.9 fL (80.0-100.0); Monocytes # (auto) 0.5 10 ^3/uL (0-1.3); Neutrophils # (auto) 16.6 10 ^3/uL (1.6-8.6); Neutrophils % (auto) 91.9 % (37.0-80.0); Nucleated Red Blood Cells % 0.1 %; Platelet Count (auto) 126 10^3/uL (140-450); Red Blood Cells 3.89 10^6/uL (4.0-5.20)
[2020-08-31 05:49] LABS: INR 0.97 (0.9-1.15)
[2020-08-31] MEDS: SODIUM CHLOR 0.9% PF (SALINE LOCK) 10ML VIAL/SYR IV SCH ×3 (05:49→22:21)
[2020-08-31] MEDS: ACETAMINOPHEN 325 MG TAB PO PRN (05:50)
[2020-08-31] MEDS: metroNIDAZOLE 500MG/100ML 100 ML IV SCH ×3 (05:50→22:21)
[2020-08-31] MEDS: MIDODRINE HCL 10 MG TAB PO SCH ×3 (05:50→17:27)
[2020-08-31 07:16] LABS: Potassium 4.3 mmol/L (3.5-5.1)
[2020-08-31 07:21] LABS: Albumin 2.8 g/dL (3.4-5.0)
[2020-08-31 07:24] LABS: Bilirubin, Total 0.3 mg/dL (0.2-1.0); Total Protein 6.1 g/dL (6.4-8.2)
[2020-08-31 07:32] LABS: Calcium 5.8 mg/dL (8.5-10.1)
[2020-08-31] MEDS: FOLIC ACID 1 MG, MULTIPLE VITAMIN 10 ML, MAGNESIUM SULF SDV 50% 8 MEQ, THIAMINE INJ 100... INJ SCH ×5 (09:00)
[2020-08-31] MEDS: FOLIC ACID 1 MG TAB PO SCH (09:40)
[2020-08-31] MEDS: MULTIPLE VITAMIN TAB PO SCH (09:40)
[2020-08-31] MEDS: THIAMINE HCL 100 MG TAB PO SCH (09:40)
[2020-08-31] MEDS: cefTRIAXone 1GM/50ML D5W 50 ML IV SCH (09:40)
[2020-08-31] MEDS: PANTOPRAZOLE 40 MG/10 ML VIAL INJ IV SCH (09:40)
[2020-08-31] MEDS: HEPARIN SODIUM (PORCINE) 5000 UNITS/ML 1ML VIAL SC SCH ×2 (09:49→22:26)
[2020-08-31] MEDS: SODIUM BICARBONATE 50ML VIAL 150 ML in D5W 5% 1,000 ML IV SCH ×2 (09:50→12:00)
[2020-08-31] MEDS: HYDROcodone-ACET 5/325MG TAB PO PRN ×2 (11:26→17:27)
[2020-08-31] MEDS ORDERED: CALCIUM GLUC 4.65meq/50ml D5AE 50 ML IV ONE (12:00)
[2020-08-31] MEDS: VASOPRESSIN 50 UNITS in D5W 5% 247.5 ML IV SCH (12:48)
[2020-08-31] MEDS: NOREPINEPHRINE 8 MG/250ML KIT 250 ML IV SCH (19:19)
[2020-08-31] MEDS ORDERED: FUROSEMIDE 100 MG/10ML VIAL IV ONE (20:00)
[2020-08-31] MEDS: PANTOPRAZOLE 40 MG TAB PO SCH (22:21)
[2020-09-01] MEDS: HYDROcodone-ACET 5/325MG TAB PO PRN ×4 (00:40→20:28)
[2020-09-01] MEDS: SODIUM BICARBONATE 50ML VIAL 150 ML in D5W 5% 1,000 ML IV SCH (04:12)
[2020-09-01 05:50] LABS: Basophils # (auto) 0 10 ^3/uL (0-0.2); Basophils % (auto) 0.3 % (0.0-2.0); Eosinophils # (auto) 0 10 ^3/uL (0-0.8); Eosinophils % (auto) 0.1 % (0.0-7.0); Hematocrit 34.1 % (36.0-46.0); Hemoglobin 11.6 g/dL (12.2-16.2); Lymphocytes # (auto) 1.2 10 ^3/uL (0.4-5.4); Lymphocytes % (auto) 9.6 % (10.0-50.0); Mean Corpuscular Hemoglobin 31.8 pg (28.0-32.0); Mean Corpuscular Hgb Conc. 34.1 g/dL (32.0-36.0); Mean Corpuscular Volume 93.1 fL (80.0-100.0); Monocytes # (auto) 0.3 10 ^3/uL (0-1.3); Monocytes % (auto) 2.7 % (0.0-12.0); Neutrophils # (auto) 10.9 10 ^3/uL (1.6-8.6); Neutrophils % (auto) 87.3 % (37.0-80.0); Nucleated Red Blood Cells % 0.2 %; Platelet Count (auto) 94 10^3/uL (140-450); Red Blood Cells 3.66 10^6/uL (4.0-5.20); Red Cell Distribution Width 16.3 % (11.8-14.3); White Blood Cell 12.5 10^3/uL (4.4-10.8)
[2020-09-01] MEDS: metroNIDAZOLE 500MG/100ML 100 ML IV SCH ×3 (05:50→22:21)
[2020-09-01] MEDS: MIDODRINE HCL 10 MG TAB PO SCH ×3 (05:50→18:54)
[2020-09-01] MEDS: SODIUM CHLOR 0.9% PF (SALINE LOCK) 10ML VIAL/SYR IV SCH ×3 (05:50→22:21)
[2020-09-01 06:06] LABS: Chloride 98 mmol/L (98-107); Glucose 100 mg/dL (74-106); Sodium 135 mmol/L (136-145)
[2020-09-01 06:10] LABS: Anion Gap 7 (5-15); BUN/Creatinine Ratio 9.7; Blood Alcohol < 3.0 mg/dL (0-5); Blood Urea Nitrogen 60 mg/dL (7-18); Carbon Dioxide 30 mmol/L (21-32); GFR African American 9 mL/min; GFR Non-African American 7 mL/min
[2020-09-01 06:21] LABS: Calcium 5.8 mg/dL (8.5-10.1)
[2020-09-01] MEDS: FOLIC ACID 1 MG TAB PO SCH (08:53)
[2020-09-01] MEDS: cefTRIAXone 1GM/50ML D5W 50 ML IV SCH (08:53)
[2020-09-01] MEDS: MULTIPLE VITAMIN TAB PO SCH (08:54)
[2020-09-01] MEDS: HEPARIN SODIUM (PORCINE) 5000 UNITS/ML 1ML VIAL SC SCH ×2 (08:54→22:23)
[2020-09-01] MEDS: PANTOPRAZOLE 40 MG TAB PO SCH ×2 (08:54→22:21)
[2020-09-01] MEDS: THIAMINE HCL 100 MG TAB PO SCH (08:54)
[2020-09-01] MEDS ORDERED: CALCIUM CHL 100MG/ML 1,000 MG in D5W 5% 100 ML IV ONE (10:15)
[2020-09-01] MEDS: VASOPRESSIN 50 UNITS in D5W 5% 247.5 ML IV SCH (14:15)
[2020-09-01] MEDS: FOLIC ACID 1 MG, MULTIPLE VITAMIN 10 ML, MAGNESIUM SULF SDV 50% 8 MEQ, THIAMINE INJ 100... INJ SCH ×5 (18:24)
[2020-09-01] MEDS: chlordiazePOXIDE HCL 25 MG CAP PO PRN (21:05)
[2020-09-02] MEDS: metroNIDAZOLE 500MG/100ML 100 ML IV SCH ×3 (05:31→21:04)
[2020-09-02] MEDS: SODIUM CHLOR 0.9% PF (SALINE LOCK) 10ML VIAL/SYR IV SCH ×3 (05:31→21:05)
[2020-09-02] MEDS: MIDODRINE HCL 10 MG TAB PO SCH ×3 (05:31→18:00)
[2020-09-02] MEDS: HYDROcodone-ACET 5/325MG TAB PO PRN ×4 (06:11→21:06)
[2020-09-02] MEDS: cefTRIAXone 1GM/50ML D5W 50 ML IV SCH (09:15)
[2020-09-02] MEDS: MULTIPLE VITAMIN TAB PO SCH (09:25)
[2020-09-02] MEDS: PANTOPRAZOLE 40 MG TAB PO SCH ×2 (09:25→21:05)
[2020-09-02] MEDS: THIAMINE HCL 100 MG TAB PO SCH (09:25)
[2020-09-02] MEDS: FOLIC ACID 1 MG TAB PO SCH (09:25)
[2020-09-02] MEDS: HEPARIN SODIUM (PORCINE) 5000 UNITS/ML 1ML VIAL SC SCH (09:26)
[2020-09-02] MEDS: chlordiazePOXIDE HCL 25 MG CAP PO PRN ×2 (10:08→18:04)
[2020-09-02] MEDS: ONDANSETRON HCL 4 MG/2 ML VIAL IV PRN (10:16)
[2020-09-02] MEDS: MORPHINE SULFATE 4 MG/ML SYR/VIAL IV PRN ×2 (10:17→20:02)
[2020-09-02 10:43] LABS: BUN/Creatinine Ratio 10.2; Potassium 3.7 mmol/L (3.5-5.1)
[2020-09-02 17:15] VITALS: BP 146/84
[2020-09-02] MEDS: FOLIC ACID 1 MG, MULTIPLE VITAMIN 10 ML, MAGNESIUM SULF SDV 50% 8 MEQ, THIAMINE INJ 100... INJ SCH ×5 (20:00)
[2020-09-02] MEDS ORDERED: ALPR0.5T PO (20:37)
[2020-09-02] MEDS ORDERED: TEMAZEPAM 15 MG CAP PO ONE (21:00)
[2020-09-03] VITALS: BP_SYST 153; BP_SYST 155; BP_DIAS 78; BP_DIAS 80
[2020-09-03] MEDS: HEPARIN SODIUM (PORCINE) 5000 UNITS/ML 1ML VIAL SC SCH ×3 (00:17→21:32)
[2020-09-03] MEDS: chlordiazePOXIDE HCL 25 MG CAP PO PRN ×2 (01:04→15:19)
[2020-09-03] MEDS: HYDROcodone-ACET 5/325MG TAB PO PRN ×3 (01:04→21:38)
[2020-09-03] MEDS: metroNIDAZOLE 500MG/100ML 100 ML IV SCH ×3 (05:33→21:24)
[2020-09-03] MEDS: SODIUM CHLOR 0.9% PF (SALINE LOCK) 10ML VIAL/SYR IV SCH ×3 (05:34→21:32)
[2020-09-03] MEDS: MIDODRINE HCL 10 MG TAB PO SCH ×3 (05:34→18:00)
[2020-09-03 06:45] LABS: Basophils # (auto) 0.1 10 ^3/uL (0-0.2); Basophils % (auto) 0.8 % (0.0-2.0); Eosinophils # (auto) 0 10 ^3/uL (0-0.8); Eosinophils % (auto) 0.2 % (0.0-7.0); Hematocrit 34.7 % (36.0-46.0); Lymphocytes # (auto) 1.1 10 ^3/uL (0.4-5.4); Lymphocytes % (auto) 13.5 % (10.0-50.0); Mean Corpuscular Hemoglobin 32.4 pg (28.0-32.0); Mean Corpuscular Hgb Conc. 34.5 g/dL (32.0-36.0); Mean Corpuscular Volume 93.9 fL (80.0-100.0); Monocytes # (auto) 0.4 10 ^3/uL (0-1.3); Monocytes % (auto) 5.2 % (0.0-12.0); Neutrophils # (auto) 6.3 10 ^3/uL (1.6-8.6); Neutrophils % (auto) 80.3 % (37.0-80.0); Nucleated Red Blood Cells % 0.1 %; Platelet Count (auto) 119 10^3/uL (140-450); Red Blood Cells 3.69 10^6/uL (4.0-5.20); Red Cell Distribution Width 15.6 % (11.8-14.3); White Blood Cell 7.8 10^3/uL (4.4-10.8)
[2020-09-03 06:57] LABS: Potassium 3.2 mmol/L (3.5-5.1)
[2020-09-03 07:00] LABS: BUN/Creatinine Ratio 11.5; Calcium 7.1 mg/dL (8.5-10.1)
[2020-09-03 07:50] VITALS: BP 127/70
[2020-09-03 08:00] VITALS: BP 127/70
[2020-09-03] MEDS ORDERED: MIDAZOLAM HCL 5 MG/ML-1ML VIAL ONE (08:16)
[2020-09-03] MEDS ORDERED: LIDOCAINE VISCOUS 2% 15ML UD ONE (08:16)
[2020-09-03] MEDS ORDERED: fentaNYL CITRATE 100 MCG/2 ML VL ONE ×2 (08:17→11:52)
[2020-09-03] MEDS ORDERED: diphenhdrAMINE HCL 50 MG/1 ML VL ONE (08:17)
[2020-09-03] MEDS ORDERED: NALOXONE HCL 0.4 MG/ML VIAL ONE (08:17)
[2020-09-03] MEDS ORDERED: FLUMAZENIL 0.1 MG/ML INJ 10ML MDV IV ONE (08:18)
[2020-09-03] MEDS: FOLIC ACID 1 MG TAB PO SCH (09:14)
[2020-09-03] MEDS: cefTRIAXone 1GM/50ML D5W 50 ML IV SCH (09:14)
[2020-09-03] MEDS: MULTIPLE VITAMIN TAB PO SCH (09:15)
[2020-09-03] MEDS: THIAMINE HCL 100 MG TAB PO SCH (09:15)
[2020-09-03] MEDS: PANTOPRAZOLE 40 MG TAB PO SCH ×2 (09:15→21:25)
[2020-09-03] MEDS: MORPHINE SULFATE 4 MG/ML SYR/VIAL IV PRN (09:51)
[2020-09-03] MEDS ORDERED: MIDAZOLAM HCL 1MG/1ML-2 ML VIAL ONE (11:52)
[2020-09-03] MEDS ORDERED: PROPOFOL 10 MG/ML 20 ML IV ONE (11:53)
[2020-09-03] MEDS ORDERED: DexAMETHasone SOD PHOS 10MG/1ML VIAL INJ ONE (11:53)
[2020-09-03] MEDS ORDERED: MORPHINE SULFATE 4 MG/ML SYR/VIAL IV PRN (12:30)
[2020-09-03] MEDS ORDERED: MIDAZOLAM HCL 1MG/1ML-2 ML VIAL IV PRN (12:30)
[2020-09-03] MEDS ORDERED: LABETALOL HCL 5 MG/ML 4ML SYRINGE IV PRN (12:30)
[2020-09-03] MEDS ORDERED: ONDANSETRON HCL 4 MG/2 ML VIAL IV PRN (12:30)
[2020-09-03] MEDS ORDERED: ePHEDrine SULFATE 50 MG/ML AMP IV PRN (12:30)
[2020-09-03 13:00] VITALS: BP 159/72
[2020-09-03 16:00] VITALS: BP 165/85
[2020-09-03] MEDS: FOLIC ACID 1 MG, MULTIPLE VITAMIN 10 ML, MAGNESIUM SULF SDV 50% 8 MEQ, THIAMINE INJ 100... INJ SCH ×5 (19:22)
[2020-09-03] MEDS: ACETAMINOPHEN 325 MG TAB PO PRN (19:24)
[2020-09-03 22:00] VITALS: BP 136/77
[2020-09-04] MEDS: chlordiazePOXIDE HCL 25 MG CAP PO PRN ×3 (00:05→18:32)
[2020-09-04 05:00] VITALS: BP 134/76
[2020-09-04] MEDS: metroNIDAZOLE 500MG/100ML 100 ML IV SCH ×3 (05:39→21:30)
[2020-09-04] MEDS: SODIUM CHLOR 0.9% PF (SALINE LOCK) 10ML VIAL/SYR IV SCH ×3 (05:40→21:30)
[2020-09-04] MEDS: MIDODRINE HCL 10 MG TAB PO SCH ×3 (05:43→18:35)
[2020-09-04 08:00] VITALS: BP 129/68
[2020-09-04 08:30] VITALS: BP 129/68
[2020-09-04] MEDS: MULTIPLE VITAMIN TAB PO SCH (09:54)
[2020-09-04] MEDS: PANTOPRAZOLE 40 MG TAB PO SCH ×2 (09:54→21:30)
[2020-09-04] MEDS: cefTRIAXone 1GM/50ML D5W 50 ML IV SCH (09:54)
[2020-09-04] MEDS: FOLIC ACID 1 MG TAB PO SCH (09:55)
[2020-09-04] MEDS: THIAMINE HCL 100 MG TAB PO SCH (09:55)
[2020-09-04] MEDS: HEPARIN SODIUM (PORCINE) 5000 UNITS/ML 1ML VIAL SC SCH ×2 (09:56→21:31)
[2020-09-04 11:12] VITALS: BP 106/68
[2020-09-04 12:00] VITALS: BP 135/69
[2020-09-04 16:00] VITALS: BP 132/71
[2020-09-04] MEDS: FOLIC ACID 1 MG, MULTIPLE VITAMIN 10 ML, MAGNESIUM SULF SDV 50% 8 MEQ, THIAMINE INJ 100... INJ SCH ×5 (17:00)
[2020-09-04] MEDS: MORPHINE SULFATE 4 MG/ML SYR/VIAL IV PRN (21:31)
== END 2020-09-04 21:50 | disposition home or self-care (01) | DRG 871 ==
LOC: EDBD 17:55 → ER 17:55 → TELE 08-30 06:48 → TELE-CENTR 09-02 16:35
PROVIDERS: ADMIT Nurse Practitioner Family; ATTEND Family Medicine
PROC: 5A1935Z Respiratory Ventilation, Less than 24 Consecutive Hours (ICD-10-PCS; 2020-08-29)
PROC: 0BH17EZ Insertion of Endotracheal Airway into Trachea, Via Natural or Artificial Opening (ICD-10-PCS; 2020-08-29)
PROC: 0DB68ZX Excision of Stomach, Via Natural or Artificial Opening Endoscopic, Diagnostic (ICD-10-PCS; principal; 2020-09-03 11:50)
DX: A41.9 Sepsis, unspecified organism (principal); R65.21 Severe sepsis with septic shock; G92 Toxic encephalopathy; N17.9 Acute kidney failure, unspecified; F10.139 Alcohol abuse with withdrawal, unspecified; K44.9 Diaphragmatic hernia without obstruction or gangrene; K29.70 Gastritis, unspecified, without bleeding; E87.5 Hyperkalemia; E83.51 Hypocalcemia; E83.52 Hypercalcemia; E86.0 Dehydration; F17.210 Nicotine dependence, cigarettes, uncomplicated; F32.9 Major depressive disorder, single episode, unspecified; K70.9 Alcoholic liver disease, unspecified; F10.129 Alcohol abuse with intoxication, unspecified; I11.0 Hypertensive heart disease with heart failure; I50.9 Heart failure, unspecified; J44.9 Chronic obstructive pulmonary disease, unspecified; Y90.6 Blood alcohol level of 120-199 mg/100 ml; Z20.822 Contact with and (suspected) exposure to COVID-19; Z95.0 Presence of cardiac pacemaker; Z80.49 Family history of malignant neoplasm of other genital organs
CPT/HCPCS: 36415; 36600; 51702; 71045; 74176; 80048; 80053; 80307; 80320; 81001; 82140; 82270; 82570; 82805; 84300; 85025; 85610; 86850; 86900; 86901; 87040; 87804; 93005; 96360; 96361; G0378; J0610; J0696; J1100; J2250; J2405; J2704; J3490; J7060